=== PATIENT | female | born 1930 | race Caucasian/White ===

== ENCOUNTER 2017-05-27 09:40 | Inpatient (IN) ==
[2017-05-27] MEDS ORDERED: Ondansetron 4 MG/2 ML VIAL IVP PRN (12:32)
[2017-05-27] MEDS ORDERED: Naloxone 0.4 MG/ML INJ IVP PRN (12:32)
[2017-05-27] MEDS ORDERED: Acetaminophen 325 MG TABLET PO PRN (12:32)
[2017-05-27] MEDS ORDERED: Albuterol 2.5 MG/3 ML NEBULIZER IH PRN (12:38)
--- NOTE | 2017-05-27 13:39 | Internal Med History&Physical ---
<Buffy Sullivan - Last Filed: 05/27/17 16:12> Date of Encounter: 05/27/17 Time of Encounter: 13:38 Assessment and Plan (1) Pneumonia Current visit: Yes Status: Acute Patient has been experiencing increasing shortness of breath in the past 2 days as well as thick green sputum production. White count was 22 chest x-rays indicative of pneumonia. Patient was recently treated for pneumonia and has history of COPD. We will obtain CT of chest to evaluate for any possible mucus plugging 2 we will consult pulmonology. Did speak with Dr. Fowler who will see patient on consult 3 oxygen titrated to maintain SaO2 greater than 92% 4 continue with bronchodilators 5 steroids with taper 6 discussed CODE STATUS with patient who voices she would like to be full code. Consult with palliative 7 social studies teacher for discharge planning Qualifiers: Pneumonia type: due to unspecified organism Laterality: right Lung location: unspecified part of lung Qualified Code(s): J18.9 - Pneumonia, unspecified organism (2) Sepsis Current visit: Yes Status: Acute Patient presents to the ER with increased shortness of sputum production low- grade fever heart rate 120 white count was 22 source with pneumonia. Blood cultures were obtained patient was given fluid at the ER and was given bank and Zosyn. Which we will continue at renal dosage Continue with IV fluids gentle overnight We will obtain sputum culture Continue to monitor labs CBC Continuous cardiac monitoring Maintained in MAP greater than 60 Monitor intake output and daily weights Qualifiers: Sepsis type: sepsis due to unspecified organism Qualified Code(s): A41.9 - Sepsis, unspecified organism (3) Acute and chronic respiratory failure with hypoxia Current visit: Yes Status: Acute Patient's SPO2 was 91% on presentation VBG with PO2 23, she is oxygen dependent with COPD as well as pneumonia. We will obtain CT to check for any possible mucus plugging. We have consulted pulmonary and will continue with oxygen titrated to maintain SPO2 rated and 92%. Continue with bronchodilators and steroids (4) COPD (chronic obstructive pulmonary disease) Current visit: No Status: Chronic 1 continue with oxygen titrated to maintain a CVP greater than 92% Continue with steroids as well as bronchodilators Qualifiers: COPD type: emphysema Emphysema type: unspecified Qualified Code(s): J43.9 - Emphysema, unspecified (5) CKD (chronic kidney disease) stage 3, GFR 30-59 ml/min Current visit: Yes Status: Acute Creatinine is presently 1.4 on which she is around her baseline 1.5 1.6. We will continue to monitor creatinine Avoid nephrotoxins Monitor intake and output and daily weights (6) DVT prophylaxis Current visit: Yes Status: Acute Heparin subcutaneous Internal Medicine - H&P: HPI Chief complaint: SOB Admitted From: Hospital to Hospital Transfer Plans for Post Hospital Care: Home History of present illness: Ms. Cardoza is a 86 year old female past medical history of COPD oxygen dependent hypertension and back pain with history of compression fracture L3 L4 L5. Patient has been hospitalized over the past 5 weeks, for new compression fractures at the end of April, as well as pneumonia. Her daughter states that she has been home approximately a week from her last hospitalization and has been doing well up until the last 2 days where she has become increasingly short of breath. Denies any fevers chills nausea vomiting or increase in sputum production. She has been unable to perform her own ADLs due to shortness of breath and decreased mobility in her family has been providing her care. Approximately 6:30 this morning the patient called her daughter into her room she was acutely anxious and short of breath she was coughing up thick green sputum. Her daughter to check her SPO2 which was approximately 90%. EMS was called and the patient was found to be in respiratory distress. She was given IV Solu-Medrol as well as a DuoNeb and transported to the [facility] ER. According to records workup there did reveal an elevated white count as well as chest x-ray revealing increased opacity in the right mid lung concerning for a small to moderate pneumonia. Blood cultures were obtained patient was given IV antibiotics. She was transferred to [facility] for further workup and evaluation and pulmonary services. Presently patient is not in any respiratory distress denies any chest pain and she is hemodynamically stable at this time. I did review this case with Dr. Berman who agrees with plan a Past Med Surg Social Fam HX - Past Medical History Medical history: COPD, hypertension, other Psychiatric history: no psych history - Past Surgical History Surgical History: no surgical history - Social History Smoking Status: Never smoker Smokeless Tobacco Status: No Alcohol use: none Drug use: none - Family History Mother Living Status: Hx Family Neuromuscular Disorders: Yes Father Living Status: Hx Family Endocrine Disorder: Yes Internal Medicine - H&P: Meds Aspirin 81 mg PO DAILY 07/21/15 [History] Gabapentin [Neurontin] 100 mg PO TID 07/21/15 [History] Omeprazole [PriLOSEC] 20 mg PO HS 03/16/16 [History] hydroCHLOROthiazide [Hydrochlorothiazide] 12.5 mg PO Q48H 03/22/16 [History] 3 Allergy/AdvReac Type Severity Reaction Status Date / Time cephalexin [From Keflex] Allergy Flushing Verified 03/16/16 21:08 moxifloxacin Allergy Flushing Verified 03/16/16 21:08 All Systems PM: A 10-system review of systems was performed and is negative for pertinent findings except as documented above in the HPI. - Constitutional Constitutional: anorexia, fatigue, weakness, weight loss - EENT Eyes: no change in vision, no discharge, no pain, no photophobia Nose, mouth and throat: no dysphagia, no nasal discharge, no neck pain, no sore throat - Cardiovascular Cardiovascular ROS IM: dyspnea, dyspnea on exertion - Respiratory Respiratory: dyspnea, dyspnea on exertion, excessive phlegm production, change in phlegm color - Gastrointestinal Gastrointestinal: no abdominal pain, no diarrhea, no hematemesis, no hematochezia, no melena, no nausea, no vomiting - Genitourinary Genitourinary: no change in urinary stream, no dysuria, no flank pain, no hematuria - Musculoskeletal Musculoskeletal ROS IM: no numbness, no tingling - Integumentary Integumentary IM: no rash, no unusual bruising - Neurological Neurological ROS: no confusion, no convulsions, no focal weakness, no numbness, no tingling, no tremor(s) - Hematologic/Lymphatic Hematologic/Lymphatic: no easy bruising - Constitutional Vitals: Temp Pulse Resp BP Pulse Ox 98.7 F 101 18 114/62 96 05/27/17 11:43 05/27/17 11:43 05/27/17 11:43 05/27/17 11:43 05/27/17 11:43 General appearance: Present: cachectic, A&O X 3 - Head Head exam: Present: atraumatic, normocephalic - Eye Eye exam: Present: PERRL, conjuntiva pink, sclera anicteric Pupils: Present: PERRL - Neck Neck exam general surgery: Present: supple, trachea midline. Absent: lymphadenopathy - Respiratory Respiratory exam: Present: rhonchi. Absent: accessory muscle use, rales, wheezes - Cardiovascular Cardiovascular exam: Present: RRR, +S1, +S2. Absent: diastolic murmur, gallop, rubs, systolic murmur - GI/Abdominal GI/Abdominal exam: Present: normal bowel sounds, soft, no peritoneal signs. Absent: distended, tenderness - Extremities Exam Extremities exam: Present: warm, radial pulses palpable and symmetrical. Absent : calf tenderness, cyanotic, pedal edema - Neurological Exam Neurological exam: Present: CN II-XII intact, oriented X3, no focal deficits. Absent: pronater drift, facial droop, speech deficit - Skin Skin exam: Present: dry, intact Internal Med - H&P Results - Labs Labs: CBC day BC 12.8 hemoglobin 10.3 hematocrit 34.6 platelets 520 VBG pH 7.34 PCO2 65 PO2 20 bicarbonate 37 lactate 1.4 Chemistry sodium 145 potassium 5.6 chloride 105 bicarbonate 31 BUN 41.41 glucose 109 BNP 163 - Diagnostic Studies Chest x-ray Additional comments: XR/XR chest 1V portable IMPRESSION: Patchy increased opacity in the right mid lung worrisome for small to moderate pneumonia superimposed on pulmonary fibrotic changes. Minimal to slight pulmonary vascular congestion. Moderate to severe emphysematous changes. <Devon Berman - Last Filed: 05/27/17 21:03> Date of Encounter: 05/27/17 Internal Medicine - H&P: HPI History of present illness: Ms. Cardoza is a 86 year old female All Systems PM: A 10-system review of systems was performed and is negative for pertinent findings except as documented above in the HPI. - Constitutional Vitals: Temp Pulse Resp BP Pulse Ox 98.3 F 120 22 151/71 94 05/27/17 20:20 05/27/17 20:20 05/27/17 20:32 05/27/17 20:20 05/27/17 20:32 Internal Med - H&P Results - Impressions ITS Impressions Chest CT 05/27/17 13:28 IMPRESSION: 1. Findings are most suggestive of multifocal pneumonia most significant in the left lower lobe. There are multifocal areas of infectious bronchiolitis as well. 2. Chronic atelectasis and bronchiectasis within the medial right middle lobe likely related to chronic infection or inflammation. 3. Several new subcentimeter nodular opacities throughout the lungs bilaterally, which are nonspecific but are felt to be related to infection. Recommend correlation with any history of malignancy. Recommend a short-term follow-up to ensure resolution. 4. Slight interval increase in size of a 3.3 cm left thyroid nodule. Consider further evaluation with ultrasound once acute issues have resolved. D/ / 05/27/2017 16:01:13 Fariba Grimaldo MD / earnold Interpreting Provider: Fariba Grimaldo MD - Attending Attestation I independently obtained history and examined this patient and my medical decision-making was reviewed with the nurse practitioner. I agree with the documented findings, disposition and treatment plan as described. My findings are summarized below: Patient is a frail elderly lady in no acute distress,. Heart is regular. Lung exam revealed bilateral coarse breath sounds with Rales and rhonchi. Plan: Blood broad spectrum IV antibiotics for healthcare associated pneumonia. Inhaled bronchodilators. Follow-up blood cultures. Obtain sputum culture. Devon Berman MD
[2017-05-27] MEDS ORDERED: Vancomycin 500 MG in D5% in Water (Mini-Bag+) 100 ML IVPB ONE (14:24)
--- NOTE | 2017-05-27 15:15 | Palliative - Consult Note ---
Date of Encounter: 05/27/17 Time of Encounter: 13:25 - Assessment and Plan (1) Goals of care, counseling/discussion Current Visit: Yes Status: Acute Assessment and plan: Discussion with patient she wishes to be a full code at this time. She and her family are discussing her options. reGuarding goals of care Fatmata is trying to provide [id number] care. They have a digital worked out, they also have some paid caregivers. Goal is to get well enough to go home. (2) Constipation by delayed colonic transit Current Visit: Yes Status: Acute Assessment and plan: Place patient on a regimen continue watch. (3) Community acquired pneumonia Current Visit: No Status: Acute Assessment and plan: Being managed by hospitalist team, plan per hospitalist team Qualifiers: Laterality: unspecified laterality Qualified Code(s): J18.9 - Pneumonia, unspecified organism (4) COPD (chronic obstructive pulmonary disease) Current Visit: No Status: Acute Assessment and plan: Being managed by hospitalist team, plan per hospitalist team Qualifiers: COPD type: chronic bronchitis Chronic bronchitis type: simple Qualified Code(s): J41.0 - Simple chronic bronchitis (5) Back pain Current Visit: No Status: Acute Assessment and plan: Patient's having no difficulty with pain at this time would recommend restarting patient's gabapentin be up to the primary care team. Qualifiers: Back pain location: low back pain Qualified Code(s): M54.40 - Lumbago with sciatica, unspecified side Palliative-CN HPI - Data of Consult Patient: new to practice Requesting Physician: Emily Turner MD Primary Care Provider: Kristy Snow - Consult Narrative Palliative Care/Comfort Measures: Palliative care History of present illness: Ms. Cardoza is a 86 year old female Patient was recently hospitalized at [facility] for a lumbar compression fracture and her spotting back pain he was released from the hospital and sent home. Last several days she has developed cough or shortness of breath octave of a very dark green sputum. Become more winded than usual. Actually became quite anxious. He requested rail transit operator be called and she was brought into the hospital here is treated with IV Solu-Medrol and given nebs and doing much better at this time. He continues to have trouble pain in her back from the compression fracture, however at this time she did not having any chest pain at all. Denies any fever shakes or chills but she does admit to having sputum with the cough. He has been hospitalized frequently in the past for pneumonia. He was treated at the [place] emergency department and transferred here for further treatment. [facility] care's consult regarding patient's CODE STATUS given her frail overall condition and the fact that she wished to be a full code. CC: Emily Turner MD Cough, shortness of breath Past Med Surg Social Fam HX - Past Medical History Medical history: COPD, hypertension, other Psychiatric history: no psych history - Past Surgical History Surgical History: no surgical history - Social History Smoking Status: Never smoker Smokeless Tobacco Status: No Alcohol use: none Drug use: none - Family History Mother Living Status: Hx Family Neuromuscular Disorders: Yes Father Living Status: Hx Family Endocrine Disorder: Yes Medications and Allergies Aspirin 81 mg PO DAILY 07/21/15 [History] Gabapentin [Neurontin] 100 mg PO TID 07/21/15 [History] Omeprazole [PriLOSEC] 20 mg PO HS 03/16/16 [History] hydroCHLOROthiazide [Hydrochlorothiazide] 12.5 mg PO Q48H 03/22/16 [History] 3 Allergy/AdvReac Type Severity Reaction Status Date / Time cephalexin [From Keflex] Allergy Flushing Verified 03/16/16 21:08 moxifloxacin Allergy Flushing Verified 03/16/16 21:08 - Constitutional Constitutional ROS PAL: decreased appetite, fatigue, lethargy, no chills - EENT Eyes: no discharge, no pain Ears: no ear discharge, no ear pain Ears, nose, mouth, throat: no dysphagia, no epistaxis, no mouth pain, no nasal congestion - Cardiovascular Cardiovascular ROS: no chest pain, no chest pain at rest - Respiratory Respiratory: cough, dyspnea, dyspnea on exertion, change in phlegm color - Gastrointestinal Gastrointestinal: constipation, no diarrhea, no nausea, no vomiting - Genitourinary Palliative ROS female: no urinary frequency, no urinary hesitancy, no urinary incontinence - Musculoskeletal Musculoskeletal ROS IM: back pain, muscle weakness - Integumentary ROS Integumentary: no skin ulcer, no sores - Neurological Neurological ROS: no disequilibrium, no dizziness, no focal weakness - Psychiatric Psychiatric general PM: change in appetite, no confusion, no homicidal ideation , no hopelessness, no suicidal ideation - Endocrine Endocrine IM: other Palliative Care-Exam - Constitutional Vitals: Temp Pulse Resp BP Pulse Ox 98.7 F 101 18 114/62 96 05/27/17 11:43 05/27/17 11:43 05/27/17 11:43 05/27/17 11:43 05/27/17 11:43 General appearance: Present: no acute distress, thin - Head Head Exam: Present: atraumatic, normal inspection - Eye Eye exam: Present: EOMI, normal appearance - Neck Neck exam: Present: normal inspection - Respiratory Respiratory exam: Present: decreased breath sounds - Cardiovascular Cardiovascular exam: Present: RRR - GI/Abdominal Exam GI/Abdominal exam: Present: normal bowel sounds, soft. Absent: tenderness - Extremities Exam Extremities exam: Present: normal inspection. Absent: pedal edema, tenderness - Neurological Exam Neurological exam: Present: alert, oriented X3 - Skin Skin exam: Present: dry, warm Consult Discharge Plan - Plan Referrals: Kristy Snow MD [Primary Care Provider] - Palliative Quality Palliative Quality: Screen for Code Status: Yes, Screen for Goals of Care: Yes, Screen for Pain: Yes, If Pain Regimen Started, Initiate Bowel Regimen: Yes, Screen for Nausea/Vomitting: Yes Code Status: 05/27/17 12:32 Resuscitation Status: Active [RES] Routine Comment: Resuscitation Status: Full Code
[2017-05-27] MEDS ORDERED: Piperacillin/Tazobactam 2.25 GM in D5% in Water (Mini-Bag+) 100 ML IVPB SCH (16:00)
[2017-05-27] MEDS: Ipratropium/Albuterol Neb 3 ML IH SCH ×2 (16:08→20:28)
[2017-05-27] MEDS: Piperacillin/Tazobactam 3.375 GM in D5% in Water (Mini-Bag+) 100 ML IVPB SCH (16:08)
[2017-05-27] MEDS: MethylPREDNISolone 40 MG/ML VIAL IVP SCH ×2 (16:09→23:51)
--- NOTE | 2017-05-27 17:10 | Pulmonology Consult Note ---
Date of Encounter: 05/27/17 Time of Encounter: 16:40 Assessment and Plan (1) Pneumonia Current Visit: No Status: Acute I have reviewed patient's CAT scan and there is evidence of pneumonia and I have explained to the family that the fact with her advanced lung disease and his pneumonia Prognosis is poor and completely agree with palliative care consultation. Patient has been treated appropriately to wait for sputum culture and if no diagnostic bacteria, then consider bronchoscopy, however patient is high risk for complications and family understand that. Qualifiers: Pneumonia type: due to unspecified organism Laterality: right Lung location: unspecified part of lung Qualified Code(s): J18.9 - Pneumonia, unspecified organism (2) Acute exacerbation of chronic obstructive airways disease Current Visit: No Status: Acute Patient is on bronchodilators and systemic steroid which is appropriate and I will add Symbicort to her treatment. (3) Acute and chronic respiratory failure with hypoxia Current Visit: No Status: Acute Patient is on home oxygen and to keep SPO2 around 90%. (4) Sepsis Current Visit: No Status: Acute Patient with recurrent pneumonia which is the source of sepsis and she is being treated appropriately Qualifiers: Sepsis type: sepsis due to unspecified organism Qualified Code(s): A41.9 - Sepsis, unspecified organism History of Present Illness Consult date: 05/27/17 Requesting physician: Buffy Sullivan Reason for consult: COPD, pneumonia Chief complaint: Shortness of breath History of present illness: This is a very pleasant 86-year-old female with very advanced lung disease stage IV based on last pulmonary function test she had. And patient is not on any inhalers but she use long-term oxygen therapy according to the family. This history taken from the patient and also from the daughter at the bedside. Patient has been having recurrent pneumonia and she is being treated for that. She has been having weight loss as well as weakness with productive cough and wheezing and worsening shortness of breath. Patient has green thick sputum and she was treated with systemic steroid as well as bronchodilators. She was transferred from [facility] emergency room. Patient has remote history of smoking. Past Med Surg Social Fam HX - Past Medical History Medical history: COPD, hypertension, other Psychiatric history: no psych history - Past Surgical History Surgical History: no surgical history - Social History Smoking Status: Never smoker Smokeless Tobacco Status: No Alcohol use: none Drug use: none - Family History Mother Living Status: Hx Family Neuromuscular Disorders: Yes Father Living Status: Hx Family Endocrine Disorder: Yes Medications and Allergies Aspirin 81 mg PO DAILY 07/21/15 [History] Gabapentin [Neurontin] 100 mg PO TID 07/21/15 [History] Omeprazole [PriLOSEC] 20 mg PO HS 03/16/16 [History] hydroCHLOROthiazide [Hydrochlorothiazide] 12.5 mg PO Q48H 03/22/16 [History] 3 Allergy/AdvReac Type Severity Reaction Status Date / Time cephalexin [From Keflex] Allergy Flushing Verified 03/16/16 21:08 moxifloxacin Allergy Flushing Verified 03/16/16 21:08 All Systems: A 10-system review of systems was performed and is negative for pertinent findings except as documented above in the HPI. Physical Examination Vital Signs: Vital Signs, Last 4 Hours Resp Pulse Ox 05/27/17 16:08 28 93 General appearance: appears uncomfortable Eyes: nonicteric ENT: oropharynx dry Mallampati (class): 1 Neck: supple, no lymphadenopathy Effort: mildly labored Inspection: hyperextended Auscultation: bilateral: diminished breath sounds, rhonchi Percussion: bilateral: not dull Cardiovascular: regular rate and rhythm Gastrointestinal: normoactive bowel sounds Extremities: no edema normal mental status, non-focal exam mood appropriate Results - Microbiology Findings Microbiology Findings: Microbiology, Last 48 Hours 05/27/17 14:15 Sputum Culture - Preliminary Sputum - Diagnostic Findings CT scan - chest: report reviewed, image reviewed - Clinical Findings Intake & Output: Intake & Output 05/27/17 05/27/17 05/27/17 07:59 15:59 23:59 Intake Total 0 / 0 Balance 0 / 0 Weight 38 kg Consult Discharge Plan - Plan Referrals: Kristy Snow MD [Primary Care Provider] -
[2017-05-27] MEDS: *HR* Heparin 5,000 UNIT/ML VIAL SQ SCH (19:00)
[2017-05-27] MEDS: Sennosides/Docusate Sodium TABLET PO SCH (19:56)
[2017-05-27] MEDS: Gabapentin 100 MG CAPSULE PO SCH (19:56)
[2017-05-27] MEDS: Budesonide/Formoterol 160/4.5 MDI IH SCH (20:29)
[2017-05-27] MEDS ORDERED: *HR* Morphine 2 MG/ML SYRINGE IVP ONE (22:20)
[2017-05-28] MEDS: Piperacillin/Tazobactam 3.375 GM in D5% in Water (Mini-Bag+) 100 ML IVPB SCH ×2 (03:27→15:37)
[2017-05-28] MEDS: Ipratropium/Albuterol Neb 3 ML IH SCH ×4 (04:26→22:14)
[2017-05-28] MEDS: *HR* Heparin 5,000 UNIT/ML VIAL SQ SCH ×2 (05:01→19:41)
[2017-05-28 05:49] LABS: Basophils % 0.1 %; Hematocrit 27.5 % (35.3-44.9); Hemoglobin 8.1 g/dL (11.5-15.4); Immature Granulocytes % 0.6 % (0-4); Lymphocytes # 0.2 K/mcL (0.6-4.6); Lymphocytes % 1.8 %; Mean Corpuscular HGB Conc 29.5 g/dL (31.6-35.5); Mean Corpuscular Hemoglobin 27.8 pg (28.0-33.3); Mean Corpuscular Volume 94.5 fL (83.0-100.0); Mean Platelet Volume 10.1 fL (9.4-12.4); Monocytes # 0.1 K/mcL (0.0-1.3); Monocytes % 0.7 %; Neutrophils # 11.6 K/mcL (1.6-8.9); Platelet Count 583 K/mcL (140-400); Red Blood Count 2.91 M/mcL (3.82-4.97); Red Cell Distribution Width 14.2 % (11.5-14.5); Segmented Neutrophils % 96.8 %
[2017-05-28 06:19] LABS: Calcium 9.1 mg/dL (8.6-10.8); Magnesium 1.6 mg/dL (1.6-2.6); Potassium 5.3 mEq/L (3.5-4.5)
--- NOTE | 2017-05-28 07:52 | Palliative Progress Note ---
Date of Encounter: 05/28/17 Time of Encounter: 07:15 - Assessment and plan (1) Goals of care, counseling/discussion Current Visit: No Status: Acute Assessment and plan: She continues to wish to be full code. We will continue this discussion. She will care for the patient return home. Family is working together to try to range for [id number] care. She wishes to get a medical power of commercial attorney done. This will be accomplished on Tuesday with social work. (2) Constipation by delayed colonic transit Current Visit: No Status: Acute Assessment and plan: Has now had a bowel movement continue to watch bowel regimen (3) Community acquired pneumonia Current Visit: No Status: Acute Assessment and plan: Continue antibiotics, pulmonary also on board. Qualifiers: Laterality: unspecified laterality Qualified Code(s): J18.9 - Pneumonia, unspecified organism (4) COPD (chronic obstructive pulmonary disease) Current Visit: No Status: Acute Assessment and plan: Plan per pulmonary and hospitalist team Qualifiers: COPD type: chronic bronchitis Chronic bronchitis type: simple Qualified Code(s): J41.0 - Simple chronic bronchitis (5) Back pain Current Visit: No Status: Acute Assessment and plan: The patient is not currently complaining of back pain, however I did note the patient did get a small dose of morphine last night and I agree with this. I recommend making the small dose of morphine available a when necessary basis. Qualifiers: Back pain location: low back pain Qualified Code(s): M54.40 - Lumbago with sciatica, unspecified side - Time Spent With Patient Total time spent is greater than 50% in coordination of care (as documented) at patient's floor/unit and/or counseling patient: - Subjective Interval history: Noted some anxiety last night. This morning patient is awake and alert eating go to the bathroom and has no complaints of. He had no questions regarding yesterday and wishes to leave everything as is. - Constitutional Vitals: Abnormal lab results WBC 12.0 K/mcL (4.3-11.1) H 05/28/17 05:27 RBC 2.91 M/mcL (3.82-4.97) L 05/28/17 05:27 Hgb 8.1 g/dL (11.5-15.4) L D 05/28/17 05:27 Hct 27.5 % (35.3-44.9) L 05/28/17 05:27 MCH 27.8 pg (28.0-33.3) L 05/28/17 05:27 MCHC 29.5 g/dL (31.6-35.5) L 05/28/17 05:27 Plt Count 583 K/mcL (140-400) H 05/28/17 05:27 Neutrophils # 11.6 K/mcL (1.6-8.9) H 05/28/17 05:27 Lymphocytes # 0.2 K/mcL (0.6-4.6) L 05/28/17 05:27 Potassium 5.3 mEq/L (3.5-4.5) H 05/28/17 05:27 Carbon Dioxide 32 mEq/L (19-29) H 05/28/17 05:27 BUN 42 mg/dL (7-20) H 05/28/17 05:27 Creatinine 1.72 mg/dL (0.57-1.11) H 05/28/17 05:27 Est GFR ( Amer) 34 (> 60) L 05/28/17 05:27 Est GFR (Non-Af Amer) 28 (> 60) L 05/28/17 05:27 Glucose 161 mg/dL (70-99) H 05/28/17 05:27 Calculated Osmolality 308 (280-300) H 05/28/17 05:27 General appearance: Present: no acute distress - Head Head exam: Present: atraumatic, normal inspection - ENT ENT exam: Present: mucous membranes moist - Respiratory Respiratory exam: Present: decreased breath sounds - Cardiovascular Cardiovascular exam: Present: RRR, tachycardia - GI/Abdominal GI/Abdominal exam: Present: normal bowel sounds, soft. Absent: tenderness - Extremities Exam Extremities exam: Present: normal inspection. Absent: pedal edema, tenderness - Neurological Exam Neurological exam: Present: alert, oriented X3 - Psychiatric Psychiatric exam: Absent: agitated, anxious (Did have anxiety earlier) - Skin Skin exam: Present: dry, warm Palliative Quality Palliative Quality: Screen for Code Status: Yes, Screen for Goals of Care: Yes, Screen for Pain: Yes, If Pain Regimen Started, Initiate Bowel Regimen: Yes, Screen for Nausea/Vomitting: Yes Code Status: 05/27/17 12:32 Resuscitation Status: Active [RES] Routine Comment: Resuscitation Status: Full Code - Labs CBC & Chem 7: 05/28/17 05:27 05/28/17 05:27 Labs: Laboratory Results - last 24 hr 05/28/17 05/28/17 05:27 05:27 WBC 12.0 H RBC 2.91 L Hgb 8.1 L D Hct 27.5 L MCV 94.5 MCH 27.8 L MCHC 29.5 L RDW 14.2 Plt Count 583 H MPV 10.1 Immature Gran % 0.6 Seg Neutrophils % 96.8 Lymphocytes % 1.8 Monocytes % 0.7 Eosinophils % 0.0 Basophils % 0.1 Neutrophils # 11.6 H Lymphocytes # 0.2 L Monocytes # 0.1 Eosinophils # 0.0 Basophils # 0.0 Sodium 142 Potassium 5.3 H Chloride 104 Carbon Dioxide 32 H BUN 42 H Creatinine 1.72 H Est GFR ( Amer) 34 L Est GFR (Non-Af Amer) 28 L BUN/Creatinine Ratio 24 Glucose 161 H Calculated Osmolality 308 H Calcium 9.1 Magnesium 1.6 - Impressions Impressions Chest CT 05/27/17 13:28 IMPRESSION: 1. Findings are most suggestive of multifocal pneumonia most significant in the left lower lobe. There are multifocal areas of infectious bronchiolitis as well. 2. Chronic atelectasis and bronchiectasis within the medial right middle lobe likely related to chronic infection or inflammation. 3. Several new subcentimeter nodular opacities throughout the lungs bilaterally, which are nonspecific but are felt to be related to infection. Recommend correlation with any history of malignancy. Recommend a short-term follow-up to ensure resolution. 4. Slight interval increase in size of a 3.3 cm left thyroid nodule. Consider further evaluation with ultrasound once acute issues have resolved. D/ / 05/27/2017 16:01:13 Fariba Grimaldo MD / [facility] Interpreting Provider: Fariba Grimaldo MD Consult Discharge Plan - Plan Referrals: Kristy Snow MD [Primary Care Provider] -
[2017-05-28] MEDS: Aspirin 81 MG TAB.CHEW PO SCH (08:00)
[2017-05-28] MEDS: Sennosides/Docusate Sodium TABLET PO SCH ×2 (08:00→20:04)
[2017-05-28] MEDS: Gabapentin 100 MG CAPSULE PO SCH ×3 (08:00→20:04)
[2017-05-28] MEDS: MethylPREDNISolone 40 MG/ML VIAL IVP SCH (08:00)
[2017-05-28] MEDS ORDERED: Vancomycin 1 EACH in D5% in Water 250 ML IVPB SCH (09:00)
[2017-05-28] MEDS ORDERED: Magnesium Sulfate 2 GM in D5% in Water 100 ML IVPB ONE (09:11)
--- NOTE | 2017-05-28 09:15 | Internal Med Progress Note ---
<Brianne Salter - Last Filed: 05/28/17 14:55> Date of Encounter: 05/28/17 Time of Encounter: 09:12 - Assessment and plan (1) Acute exacerbation of chronic obstructive pulmonary disease (COPD) Current Visit: Yes Status: Acute Assessment and plan: acute eacerbation of COPD likely secondary to pneumonia. Chest CT showed multifocal pneumonia most significant in the left lower lobe, infectious bronchiolitis, chronic atalectasis. patient wears 2L oxygen all the time. she lives at home with her granddaughter. sputum culture negative. community acquired pneumonia. Plan: patient still tachycardic-continue gentle IV hydration. vanc/zosyn, renally dosed. blood cultures drawn at [place], pending results. scheduled duonebs. IV methylprednisolone BID oxygen titrated as needed. appreciate pulmonology recs. if no diagnostic bacteria, plan for bronch per pulm recs. (2) Pneumonia Current Visit: No Status: Acute Assessment and plan: plan as above Qualifiers: Pneumonia type: due to unspecified organism Laterality: right Lung location: unspecified part of lung Qualified Code(s): J18.9 - Pneumonia, unspecified organism (3) COPD (chronic obstructive pulmonary disease) Current Visit: No Status: Chronic Assessment and plan: plan as above. Qualifiers: COPD type: emphysema Emphysema type: unspecified Qualified Code(s): J43.9 - Emphysema, unspecified (4) Acute and chronic respiratory failure with hypoxia Current Visit: No Status: Acute Assessment and plan: likely secondary to COPD exacerbation/PNA. plan as above. (5) Sepsis Current Visit: No Status: Acute Assessment and plan: patient came in with shortness of breath, low grade fever, tachycardia, WBC 22 likely source PNA plan as above Qualifiers: Sepsis type: sepsis due to unspecified organism Qualified Code(s): A41.9 - Sepsis, unspecified organism (6) CKD (chronic kidney disease) stage 3, GFR 30-59 ml/min Current Visit: No Status: Acute Assessment and plan: history of CKD. continue to monitor Cr renally dose all meds avoid nephrotoxins. (7) Anemia Current Visit: No Status: Chronic Assessment and plan: Hg today 8.1, baseline around 11. possible etiologies include: anemia of chronic disease, acute blood loss, possible iron deficiency. iron profile reviewed from 04/24/17: iron 23, ferritin 484, transferrin 171 of note, patient does have history of GI bleed. Plan: will monitor H/H, stop Sq heparin if patient continues to drop. will check B12, folate levels with tomorrow's labs. stool guiac pending. Qualifiers: Anemia type: iron deficiency Iron deficiency anemia type: unspecified iron deficiency Qualified Code(s): D50.9 - Iron deficiency anemia, unspecified (8) Goals of care, counseling/discussion Current Visit: No Status: Acute Assessment and plan: consult made to palliative in regards to patient's poor prognosis. she wishes to stay full code at this time. patient's family is arranging for around the clock care at home. (9) DVT prophylaxis Current Visit: No Status: Acute Assessment and plan: heparin SQ - Subjective Interval history: 86F evaluated at bedside. patient was sitting up in bed. she is very pleasant. she denies nausea, vomiting, diarrhea, fever, chills, chest pain, and shortness of breath. she denies any further issues today. - Constitutional Vitals: Temp Pulse Resp BP Pulse Ox 98.0 F 112 19 165/81 94 05/28/17 07:26 05/28/17 07:26 05/28/17 07:26 05/28/17 07:26 05/28/17 07:26 General appearance: Present: cachectic, A&O X 3, pleasant, no acute distress Exam: very cachectic - Head Head exam: Present: atraumatic, normocephalic - Neck Neck exam general surgery: Present: supple, trachea midline - Respiratory Respiratory exam: Present: rales, rhonchi - Cardiovascular Cardiovascular exam: Present: tachycardia - GI/Abdominal GI/Abdominal exam: Present: distended, hypoactive bowel sounds, soft. Absent: tenderness - Extremities Exam Extremities exam: Absent: cyanotic, pedal edema - Psychiatric Psychiatric exam: Present: normal affect, normal mood - Skin Skin exam: Present: intact Internal Medicine: Result - Labs CBC & Chem 7: 05/28/17 05:27 05/28/17 05:27 Labs: Short CBC 05/28/17 Range/Units 05:27 WBC 12.0 H (4.3-11.1) K/mcL Hgb 8.1 L D (11.5-15.4) g/dL Hct 27.5 L (35.3-44.9) % Plt Count 583 H (140-400) K/mcL Neutrophils # 11.6 H (1.6-8.9) K/mcL BMP 05/28/17 05:27 Sodium 142 Potassium 5.3 H Chloride 104 Carbon Dioxide 32 H BUN 42 H Creatinine 1.72 H Glucose 161 H Calcium 9.1 - Impressions Impressions Chest CT 05/27/17 13:28 IMPRESSION: 1. Findings are most suggestive of multifocal pneumonia most significant in the left lower lobe. There are multifocal areas of infectious bronchiolitis as well. 2. Chronic atelectasis and bronchiectasis within the medial right middle lobe likely related to chronic infection or inflammation. 3. Several new subcentimeter nodular opacities throughout the lungs bilaterally, which are nonspecific but are felt to be related to infection. Recommend correlation with any history of malignancy. Recommend a short-term follow-up to ensure resolution. 4. Slight interval increase in size of a 3.3 cm left thyroid nodule. Consider further evaluation with ultrasound once acute issues have resolved. D/ / 05/27/2017 16:01:13 Fariba Grimaldo MD / [facility] Interpreting Provider: Fariba Grimaldo MD Consult Discharge Plan - Plan Referrals: Kristy Snow MD [Primary Care Provider] - <JohnnyBaltaanoop - Last Filed: 05/28/17 17:37> Date of Encounter: 05/28/17 - Constitutional Vitals: Temp Pulse Resp BP Pulse Ox 98.1 F 124 16 124/65 90 05/28/17 15:39 05/28/17 15:39 05/28/17 16:47 05/28/17 15:39 05/28/17 16:47 Internal Medicine: Result - Labs CBC & Chem 7: 05/28/17 05:27 05/28/17 05:27 Labs: Short CBC 05/28/17 Range/Units 05:27 WBC 12.0 H (4.3-11.1) K/mcL Hgb 8.1 L D (11.5-15.4) g/dL Hct 27.5 L (35.3-44.9) % Plt Count 583 H (140-400) K/mcL Neutrophils # 11.6 H (1.6-8.9) K/mcL BMP 05/28/17 05:27 Sodium 142 Potassium 5.3 H Chloride 104 Carbon Dioxide 32 H BUN 42 H Creatinine 1.72 H Glucose 161 H Calcium 9.1 - Attending Attestation I have seen and examined the patient independently. I have discussed with resident Dr. Salter regarding the management plan. Agree with the documentation. Patient feels less shortness of breath now. No wheezing. CT chest shows multifocal pneumonia. We will continue antibiotic and supportive treatment. Pulmonology consult appreciated.
--- NOTE | 2017-05-28 09:18 | Pulmonology Progress Note ---
Date of Encounter: 05/28/17 Time of Encounter: 07:45 Assessment and Plan (1) Pneumonia Current Visit: No Status: Acute Continue current antibiotics. De-escalation of antibiotics if cultures remain negative the next 24 hours. Qualifiers: Qualified Code(s): J18.9 - Pneumonia, unspecified organism (2) Acute exacerbation of chronic obstructive airways disease Current Visit: No Status: Acute There is slight improvement on current treatment, patient has advanced lung disease with poor prognosis. (3) Acute and chronic respiratory failure with hypoxia Current Visit: No Status: Acute Keep SPO2 around 90%. (4) Sepsis Current Visit: No Status: Acute Qualifiers: Qualified Code(s): A41.9 - Sepsis, unspecified organism Subjective Principal diagnosis: Shortness of breath Interval history: Patient denies any complaint and she feels slightly better. Objective PUL Vital signs: Last Vital Signs Temp 98.0 F 05/28/17 07:26 Pulse 112 05/28/17 07:26 Resp 19 05/28/17 07:26 BP 165/81 05/28/17 07:26 Pulse Ox 94 05/28/17 07:26 General appearance: no acute distress Eyes: nonicteric ENT: oropharynx moist Neck: supple, no lymphadenopathy Effort: mildly labored Auscultation: right: rhonchi, bilateral: diminished breath sounds Percussion: bilateral: not dull Cardiovascular: regular rate and rhythm Gastrointestinal: normoactive bowel sounds Extremities: no cyanosis non-focal exam anxious Results - Laboratory Findings CBC and BMP: 05/28/17 05:27 05/28/17 05:27 Abnormal lab findings: Abnormal lab results WBC 12.0 K/mcL (4.3-11.1) H 05/28/17 05:27 RBC 2.91 M/mcL (3.82-4.97) L 05/28/17 05:27 Hgb 8.1 g/dL (11.5-15.4) L D 05/28/17 05:27 Hct 27.5 % (35.3-44.9) L 05/28/17 05:27 MCH 27.8 pg (28.0-33.3) L 05/28/17 05:27 MCHC 29.5 g/dL (31.6-35.5) L 05/28/17 05:27 Plt Count 583 K/mcL (140-400) H 05/28/17 05:27 Neutrophils # 11.6 K/mcL (1.6-8.9) H 05/28/17 05:27 Lymphocytes # 0.2 K/mcL (0.6-4.6) L 05/28/17 05:27 Potassium 5.3 mEq/L (3.5-4.5) H 05/28/17 05:27 Carbon Dioxide 32 mEq/L (19-29) H 05/28/17 05:27 BUN 42 mg/dL (7-20) H 05/28/17 05:27 Creatinine 1.72 mg/dL (0.57-1.11) H 05/28/17 05:27 Est GFR ( Amer) 34 (> 60) L 05/28/17 05:27 Est GFR (Non-Af Amer) 28 (> 60) L 05/28/17 05:27 Glucose 161 mg/dL (70-99) H 05/28/17 05:27 Calculated Osmolality 308 (280-300) H 05/28/17 05:27 - Microbiology Findings Microbiology Findings: Microbiology, Last 48 Hours 05/27/17 14:15 Sputum Culture - Preliminary Sputum - Clinical Findings Intake & Output: Intake & Output 05/27/17 05/28/17 05/28/17 23:59 07:59 15:59 Intake Total 100 / 100 Output Total 575 / 575 Balance -475 / -475 Weight 46.7 kg Consult Discharge Plan - Plan Referrals: Kristy Snow MD [Primary Care Provider] -
[2017-05-28] MEDS ORDERED: 0.9 % Sodium Chloride 500 ML IVC ONE (09:22)
[2017-05-28] MEDS ORDERED: 0.9 % Sodium Chloride 1,000 ML IVC SCH (09:30)
[2017-05-28] MEDS: Budesonide/Formoterol 160/4.5 MDI IH SCH ×2 (10:50→22:15)
[2017-05-28] MEDS ORDERED: *HR* Morphine 2 MG/ML SYRINGE IVP ONE (19:55)
[2017-05-28] MEDS ORDERED: MethylPREDNISolone 40 MG/ML VIAL IVP SCH (21:00)
[2017-05-28 21:16] LABS: Potassium 4.6 mEq/L (3.5-4.5)
[2017-05-29] MEDS ORDERED: Vancomycin 1,000 MG in D5% in Water 250 ML IVPB ONE
[2017-05-29 01:36] LABS: Basophils % 0.1 %; Hematocrit 27.5 % (35.3-44.9); Hemoglobin 8.1 g/dL (11.5-15.4); Immature Granulocytes % 0.5 % (0-4); Lymphocytes # 0.3 K/mcL (0.6-4.6); Lymphocytes % 1.6 %; Mean Corpuscular HGB Conc 29.5 g/dL (31.6-35.5); Mean Corpuscular Volume 95.2 fL (83.0-100.0); Mean Platelet Volume 10.2 fL (9.4-12.4); Monocytes # 0.9 K/mcL (0.0-1.3); Monocytes % 4.8 %; Neutrophils # 17.9 K/mcL (1.6-8.9); Platelet Count 627 K/mcL (140-400); Red Blood Count 2.89 M/mcL (3.82-4.97); Red Cell Distribution Width 14.4 % (11.5-14.5)
[2017-05-29 01:45] LABS: Potassium 4.2 mEq/L (3.5-4.5)
[2017-05-29 01:46] LABS: Calcium 8.8 mg/dL (8.6-10.8); Magnesium 2.4 mg/dL (1.6-2.6)
[2017-05-29] MEDS: Piperacillin/Tazobactam 3.375 GM in D5% in Water (Mini-Bag+) 100 ML IVPB SCH ×2 (03:51→15:05)
[2017-05-29] MEDS: Ipratropium/Albuterol Neb 3 ML IH SCH ×4 (04:50→21:08)
[2017-05-29] MEDS: *HR* Heparin 5,000 UNIT/ML VIAL SQ SCH ×2 (05:57→16:48)
[2017-05-29] MEDS: Sennosides/Docusate Sodium TABLET PO SCH ×2 (08:05→20:30)
[2017-05-29] MEDS: Aspirin 81 MG TAB.CHEW PO SCH (08:05)
[2017-05-29] MEDS: Gabapentin 100 MG CAPSULE PO SCH ×3 (08:05→20:09)
[2017-05-29] MEDS: Budesonide/Formoterol 160/4.5 MDI IH SCH ×2 (10:28→21:08)
[2017-05-29] MEDS: Lactobacillus 1 EACH CAP.SPRINK PO SCH (11:01)
--- NOTE | 2017-05-29 11:46 | Internal Med Progress Note ---
Date of Encounter: 05/29/17 Time of Encounter: 11:42 - Assessment and plan (1) Acute exacerbation of chronic obstructive pulmonary disease (COPD) Current Visit: Yes Status: Acute Assessment and plan: acute eacerbation of COPD likely secondary to pneumonia. Chest CT showed multifocal pneumonia most significant in the left lower lobe, infectious bronchiolitis, chronic atalectasis. patient wears 2L oxygen all the time. she lives at home with her granddaughter. sputum culture growing two gram negative rods. community acquired pneumonia. Plan: vanc/zosyn, renally dosed. blood cultures drawn at [facility], prelim negative. scheduled duonebs. discontinued IV steroid. oxygen titrated as needed. appreciate pulmonology recs. if no diagnostic bacteria, plan for bronch per pulm recs. will de-escalate based on cultures mucomyst to help with mucous secretions. (2) Pneumonia Current Visit: No Status: Acute Assessment and plan: plan as above Qualifiers: Pneumonia type: due to unspecified organism Laterality: right Lung location: unspecified part of lung Qualified Code(s): J18.9 - Pneumonia, unspecified organism (3) COPD (chronic obstructive pulmonary disease) Current Visit: No Status: Chronic Assessment and plan: plan as above. Qualifiers: COPD type: emphysema Emphysema type: unspecified Qualified Code(s): J43.9 - Emphysema, unspecified (4) Acute and chronic respiratory failure with hypoxia Current Visit: No Status: Acute Assessment and plan: likely secondary to COPD exacerbation/PNA. plan as above. (5) Sepsis Current Visit: No Status: Acute Assessment and plan: patient came in with shortness of breath, low grade fever, tachycardia, WBC 22 likely source PNA plan as above Qualifiers: Sepsis type: sepsis due to unspecified organism Qualified Code(s): A41.9 - Sepsis, unspecified organism (6) CKD (chronic kidney disease) stage 3, GFR 30-59 ml/min Current Visit: No Status: Acute Assessment and plan: history of CKD. continue to monitor Cr renally dose all meds avoid nephrotoxins. (7) Anemia Current Visit: No Status: Chronic Assessment and plan: Hg today 8.1, baseline around 11. possible etiologies include: anemia of chronic disease, acute blood loss, possible iron deficiency. iron profile reviewed from 04/24/17: iron 23, ferritin 484, transferrin 171 of note, patient does have history of GI bleed. stool occult blood positive. B12, folate WNL Plan: will monitor H/H, stop Sq heparin if patient continues to drop. will hold off on EGD at this time, as patient likely will not be able to tolerate it due to her respiratory status. Qualifiers: Anemia type: iron deficiency Iron deficiency anemia type: unspecified iron deficiency Qualified Code(s): D50.9 - Iron deficiency anemia, unspecified (8) Goals of care, counseling/discussion Current Visit: No Status: Acute Assessment and plan: consult made to palliative in regards to patient's poor prognosis. she wishes to stay full code at this time. patient's family is arranging for around the clock care at home. (9) DVT prophylaxis Current Visit: No Status: Acute Assessment and plan: heparin SQ - Subjective Interval history: 86F evaluated at bedside. patient was sitting up in bed. she is very pleasant. she denies nausea, vomiting, diarrhea, fever, chills, chest pain, and shortness of breath. she denies any further issues today. - Constitutional Vitals: Temp Pulse Resp BP Pulse Ox 98.1 F 120 18 150/76 93 05/29/17 11:39 05/29/17 11:39 05/29/17 11:39 05/29/17 11:39 05/29/17 11:39 General appearance: Present: cachectic, A&O X 3, pleasant, no acute distress - Head Head exam: Present: atraumatic, normocephalic - Neck Neck exam general surgery: Present: supple, trachea midline - Respiratory Additional comments: rales, rhonchi present. - Cardiovascular Cardiovascular exam: Present: tachycardia - GI/Abdominal GI/Abdominal exam: Present: normal bowel sounds, soft. Absent: distended, tenderness - Extremities Exam Extremities exam: Absent: cyanotic, pedal edema - Neurological Exam Neurological exam: Present: alert, oriented X3, no focal deficits - Psychiatric Psychiatric exam: Present: normal affect, normal mood Internal Medicine: Result - Labs CBC & Chem 7: 05/29/17 01:12 05/29/17 01:12 Labs: Short CBC 05/29/17 Range/Units 01:12 WBC 19.2 H D (4.3-11.1) K/mcL Hgb 8.1 L (11.5-15.4) g/dL Hct 27.5 L (35.3-44.9) % Plt Count 627 H (140-400) K/mcL Neutrophils # 17.9 H (1.6-8.9) K/mcL BMP 05/28/17 05/29/17 19:43 01:12 Sodium 142 145 Potassium 4.6 H 4.2 Chloride 104 106 Carbon Dioxide 30 H 28 BUN 43 H 43 H Creatinine 1.81 H 1.71 H Glucose 174 H 170 H Calcium 9.0 8.8 Consult Discharge Plan - Plan Referrals: Kristy Snow MD [Primary Care Provider] -
[2017-05-29] MEDS: Acetylcysteine 10% 2 ML INHSOL IH SCH ×2 (15:38→21:08)
[2017-05-29] MEDS: amLODIPine 5 MG TABLET PO SCH (16:48)
[2017-05-29] MEDS: Melatonin 3 MG TABLET PO PRN (20:49)
[2017-05-30 01:32] LABS: Basophils % 0.1 %; Hematocrit 27.7 % (35.3-44.9); Hemoglobin 8.2 g/dL (11.5-15.4); Immature Granulocytes % 0.8 % (0-4); Lymphocytes # 0.5 K/mcL (0.6-4.6); Lymphocytes % 2.8 %; Mean Corpuscular HGB Conc 29.6 g/dL (31.6-35.5); Mean Corpuscular Hemoglobin 28.2 pg (28.0-33.3); Mean Corpuscular Volume 95.2 fL (83.0-100.0); Mean Platelet Volume 10.3 fL (9.4-12.4); Monocytes # 1.4 K/mcL (0.0-1.3); Monocytes % 7.3 %; Neutrophils # 16.4 K/mcL (1.6-8.9); Platelet Count 642 K/mcL (140-400); Red Blood Count 2.91 M/mcL (3.82-4.97); Red Cell Distribution Width 14.5 % (11.5-14.5)
[2017-05-30] MEDS ORDERED: Vancomycin 750 MG in D5% in Water 250 ML IVPB ONE (03:30)
[2017-05-30] MEDS: Ipratropium/Albuterol Neb 3 ML IH SCH ×4 (03:52→22:23)
[2017-05-30] MEDS: Acetylcysteine 10% 2 ML INHSOL IH SCH ×4 (03:52→22:25)
[2017-05-30] MEDS: Piperacillin/Tazobactam 3.375 GM in D5% in Water (Mini-Bag+) 100 ML IVPB SCH ×2 (05:43→18:29)
[2017-05-30] MEDS: *HR* Heparin 5,000 UNIT/ML VIAL SQ SCH ×2 (05:49→18:34)
[2017-05-30] MEDS ORDERED: Aminoglycoside Consult 1 EACH MC ONE (07:39)
[2017-05-30] MEDS: Aspirin 81 MG TAB.CHEW PO SCH (08:32)
[2017-05-30] MEDS: Gabapentin 100 MG CAPSULE PO SCH ×3 (08:32→21:54)
[2017-05-30] MEDS: Lactobacillus 1 EACH CAP.SPRINK PO SCH (08:32)
[2017-05-30] MEDS: amLODIPine 5 MG TABLET PO SCH (08:32)
[2017-05-30] MEDS: Sennosides/Docusate Sodium TABLET PO SCH ×2 (08:33→21:55)
--- NOTE | 2017-05-30 10:51 | Event Note ---
Date of Encounter: 05/30/17 Time of Encounter: 10:45 Patient up in chair. Appears anxious. Denies any shortness of breath/pain, states she is doing better. Attempted to f/u on goals of care discussion, and pt became very upset. Stated, " I told that Dr. Love I did not want to discuss it then, and I do not want to discuss it now". I explained that we only wanted to abide and discuss her wishes, she asked that I quit talking about it. We did discuss with social work earlier this am, that it would be beneficial to meet with patient when family not present to discuss who she would want for power of employee benefits attorney. She is hoping to be discharged soon.
[2017-05-30] MEDS: Budesonide/Formoterol 160/4.5 MDI IH SCH ×2 (11:23→22:22)
--- NOTE | 2017-05-30 14:54 | Internal Med Progress Note ---
<Taniya Lucas - Last Filed: 05/30/17 15:50> Date of Encounter: 05/30/17 Time of Encounter: 14:45 - Assessment and plan (1) Acute exacerbation of chronic obstructive pulmonary disease (COPD) Current Visit: Yes Status: Acute Assessment and plan: Acute exacerbation of COPD likely secondary to pneumonia Chest CT showed multifocal pneumonia most significant in the left lower lobe, infectious bronchiolitis, chronic atalectasis Patient wears 2L oxygen all the time. She lives at home with her granddaughter community acquired pneumonia patient reports breathing improving, WBC improving -sputum culture growing two gram negative rods -zosyn, renally dosed -blood cultures drawn at [facility], prelim negative -scheduled duonebs -stop vancomycin -supplemental oxygen: 3L currently -appreciate pulmonology recs. if no diagnostic bacteria, plan for bronch per pulm recs -will de-escalate based on cultures and sensitivity -mucomyst to help with mucous secretions (2) Pneumonia Current Visit: No Status: Acute Assessment and plan: Plan above Qualifiers: Pneumonia type: due to unspecified organism Laterality: right Lung location: lower lobe of lung Qualified Code(s): J18.1 - Lobar pneumonia, unspecified organism (3) COPD (chronic obstructive pulmonary disease) Current Visit: No Status: Acute Assessment and plan: Plan as above Qualifiers: COPD type: chronic bronchitis Chronic bronchitis type: simple Qualified Code(s): J41.0 - Simple chronic bronchitis (4) Sepsis Current Visit: No Status: Acute Assessment and plan: patient came in with shortness of breath, low grade fever, tachycardia, WBC 22 likely source PNA plan as above Qualifiers: Sepsis type: sepsis due to unspecified organism Qualified Code(s): A41.9 - Sepsis, unspecified organism (5) Acute and chronic respiratory failure with hypoxia Current Visit: No Status: Acute Assessment and plan: likely secondary to COPD exacerbation/PNA plan as above (6) Anemia Current Visit: No Status: Chronic Assessment and plan: Hgb today 8.2, baseline around 11 possible etiologies include: anemia of chronic disease, acute blood loss, possible iron deficiency. iron profile reviewed from 04/24/17: iron 23, ferritin 484, transferrin 171 of note, patient does have history of GI bleed stool occult blood positive B12, folate WNL -will monitor H/H -stop Sq heparin if hemoglobin continues to drop -will hold off on EGD at this time, as patient likely will not be able to tolerate it due to her respiratory status Qualifiers: Anemia type: iron deficiency Iron deficiency anemia type: unspecified iron deficiency Qualified Code(s): D50.9 - Iron deficiency anemia, unspecified (7) CKD (chronic kidney disease) stage 3, GFR 30-59 ml/min Current Visit: No Status: Acute Assessment and plan: history of CKD continue to monitor creatinine renally dose all meds avoid nephrotoxins. (8) Goals of care, counseling/discussion Current Visit: No Status: Acute Assessment and plan: consult made to palliative in regards to patient's poor prognosis she wishes to stay full code at this time. patient's family is arranging for around the clock care at home today she refused to talk with palliative care about goals of care (9) DVT prophylaxis Current Visit: No Status: Acute Assessment and plan: heparin SQ - Subjective Interval history: Sitting up in bed comfortably she requested a duo neb due to shortness of breath she reports that her breathing has improved from admission denies fever, chills, chest pain - Constitutional Vitals: Temp Pulse Resp BP Pulse Ox 98.4 F 105 17 138/67 97 05/30/17 11:00 05/30/17 11:00 05/30/17 11:24 05/30/17 11:00 05/30/17 11:24 General appearance: Present: cachectic, A&O X 3, pleasant, no acute distress Exam: Gen.: Vitals noted. No acute distress. AAOx3 HEENT: oropharynx clear, Normocephalic, atraumatic Cardiac: tachycardia no murmur Pulmonary: bilaterally wheezes, rales and rhonchi diffuse throughout both lungs Abdomen: soft, nontender, Bowel sounds noted, no guarding Extremities: no BLE edema, nontender calf, no cyanosis or clubbing Neuro: A&Ox3, moves all extremities Psych: Appropriate mood and behavior Internal Medicine: Result - Labs CBC & Chem 7: 05/30/17 00:59 05/30/17 00:59 Labs: Short CBC 05/30/17 Range/Units 00:59 WBC 18.4 H (4.3-11.1) K/mcL Hgb 8.2 L (11.5-15.4) g/dL Hct 27.7 L (35.3-44.9) % Plt Count 642 H (140-400) K/mcL Neutrophils # 16.4 H (1.6-8.9) K/mcL BMP 05/30/17 00:59 Sodium 146 H Potassium 4.0 Chloride 106 Carbon Dioxide 30 H BUN 42 H Creatinine 1.74 H Glucose 115 H Calcium 9.0 - Impressions Impressions Chest CT 05/27/17 13:28 IMPRESSION: 1. Findings are most suggestive of multifocal pneumonia most significant in the left lower lobe. There are multifocal areas of infectious bronchiolitis as well. 2. Chronic atelectasis and bronchiectasis within the medial right middle lobe likely related to chronic infection or inflammation. 3. Several new subcentimeter nodular opacities throughout the lungs bilaterally, which are nonspecific but are felt to be related to infection. Recommend correlation with any history of malignancy. Recommend a short-term follow-up to ensure resolution. 4. Slight interval increase in size of a 3.3 cm left thyroid nodule. Consider further evaluation with ultrasound once acute issues have resolved. D/ / 05/27/2017 16:01:13 Fariba Grimaldo MD / earno Interpreting Provider: Fariba Grimaldo MD Consult Discharge Plan - Plan Referrals: Kristy Snow MD [Primary Care Provider] - <Emily Turner - Last Filed: 05/30/17 17:26> Date of Encounter: 05/30/17 - Constitutional Vitals: Temp Pulse Resp BP Pulse Ox 98.4 F 102 22 130/69 97 05/30/17 16:05 05/30/17 16:05 05/30/17 16:05 05/30/17 16:05 05/30/17 16:05 Internal Medicine: Result - Labs CBC & Chem 7: 05/30/17 00:59 05/30/17 00:59 Labs: Short CBC 05/30/17 Range/Units 00:59 WBC 18.4 H (4.3-11.1) K/mcL Hgb 8.2 L (11.5-15.4) g/dL Hct 27.7 L (35.3-44.9) % Plt Count 642 H (140-400) K/mcL Neutrophils # 16.4 H (1.6-8.9) K/mcL BMP 05/30/17 00:59 Sodium 146 H Potassium 4.0 Chloride 106 Carbon Dioxide 30 H BUN 42 H Creatinine 1.74 H Glucose 115 H Calcium 9.0 - Impressions Impressions Chest CT 05/27/17 13:28 IMPRESSION: 1. Findings are most suggestive of multifocal pneumonia most significant in the left lower lobe. There are multifocal areas of infectious bronchiolitis as well. 2. Chronic atelectasis and bronchiectasis within the medial right middle lobe likely related to chronic infection or inflammation. 3. Several new subcentimeter nodular opacities throughout the lungs bilaterally, which are nonspecific but are felt to be related to infection. Recommend correlation with any history of malignancy. Recommend a short-term follow-up to ensure resolution. 4. Slight interval increase in size of a 3.3 cm left thyroid nodule. Consider further evaluation with ultrasound once acute issues have resolved. D/ / 05/27/2017 16:01:13 Fariba Grimaldo MD / earnold Interpreting Provider: Fariba Grimaldo MD - Attending Attestation I saw and examined the patient independently. I have discussed with resident Dr Lucas regarding the management plan. Agree with the documentation. Patient feels better. Less cough or shortness of breath. Sputum culture shows gram-negative rods. CARLEY Bernstein, continue Zosyn, waiting for final result. Consult foster care social worker for placement as PT OT recommended ECF discharge. Patient has stable hemoglobin. Anemia more like chronic disease caused anemia per her anemia workup. No signs of active bleeding. Not warrant for further tests at this point although guaiac tested positive.
[2017-05-30] MEDS: Melatonin 3 MG TABLET PO PRN (21:55)
[2017-05-31 03:45] LABS: Hemoglobin 7.2 g/dL (11.5-15.4)
[2017-05-31 03:46] LABS: Basophils % 0.2 %; Eosinophils % 0.2 %; Hematocrit 24.5 % (35.3-44.9); Immature Granulocytes % 0.7 % (0-4); Lymphocytes # 0.6 K/mcL (0.6-4.6); Lymphocytes % 5.1 %; Mean Corpuscular HGB Conc 29.4 g/dL (31.6-35.5); Mean Corpuscular Hemoglobin 28.2 pg (28.0-33.3); Mean Corpuscular Volume 96.1 fL (83.0-100.0); Mean Platelet Volume 10.4 fL (9.4-12.4); Monocytes # 1.1 K/mcL (0.0-1.3); Neutrophils # 10.4 K/mcL (1.6-8.9); Platelet Count 530 K/mcL (140-400); Red Blood Count 2.55 M/mcL (3.82-4.97); Red Cell Distribution Width 14.3 % (11.5-14.5); Segmented Neutrophils % 84.8 %
[2017-05-31 04:08] LABS: Potassium 3.7 mEq/L (3.5-4.5)
[2017-05-31] MEDS: Piperacillin/Tazobactam 3.375 GM in D5% in Water (Mini-Bag+) 100 ML IVPB SCH ×2 (04:17→15:33)
[2017-05-31 04:33] LABS: Anisocytosis 1+ (Not Present); Hypochromasia Present (Not Present); Poikilocytosis 1+ (Not Present)
[2017-05-31] MEDS: Ipratropium/Albuterol Neb 3 ML IH SCH ×6 (04:33→23:33)
[2017-05-31] MEDS: Acetylcysteine 10% 2 ML INHSOL IH SCH ×5 (04:33→20:45)
[2017-05-31] MEDS: *HR* Heparin 5,000 UNIT/ML VIAL SQ SCH (06:28)
[2017-05-31] MEDS: Lactobacillus 1 EACH CAP.SPRINK PO SCH (08:41)
[2017-05-31] MEDS: Aspirin 81 MG TAB.CHEW PO SCH (08:41)
[2017-05-31] MEDS: Gabapentin 100 MG CAPSULE PO SCH ×3 (08:42→20:43)
[2017-05-31] MEDS: amLODIPine 5 MG TABLET PO SCH (08:42)
[2017-05-31] MEDS: Sennosides/Docusate Sodium TABLET PO SCH ×2 (08:42→20:44)
[2017-05-31] MEDS: Budesonide/Formoterol 160/4.5 MDI IH SCH ×2 (10:44→20:45)
--- NOTE | 2017-05-31 16:22 | Internal Med Progress Note ---
Date of Encounter: 05/31/17 Time of Encounter: 16:20 - Assessment and plan (1) Pneumonia Current Visit: No Status: Acute Assessment and plan: Mostly bacterial also concerned for aspirational / chemical pneumonitis cont IV abx Zosyn Duoneb PPI Cont O2.. try to wean her off the O2 to baseline Qualifiers: Pneumonia type: due to unspecified organism Laterality: right Lung location: unspecified part of lung Qualified Code(s): J18.9 - Pneumonia, unspecified organism (2) Sepsis Current Visit: No Status: Acute Assessment and plan: Due to pneumonia improving slowly WBC started trending down slowly Qualifiers: Sepsis type: sepsis due to unspecified organism Qualified Code(s): A41.9 - Sepsis, unspecified organism (3) Acute exacerbation of chronic obstructive airways disease Current Visit: No Status: Acute Assessment and plan: Will start low dose PO steroids Prednisone 40mg PO daily since she still has MILLER and requiring 3.5 lit o2 cont Duoneb (4) Anemia Current Visit: No Status: Chronic Assessment and plan: Hb dropped down to 7.2 stool occult blood positive, she does have history of GI bleed will give 1 U PRBC Lasix 40mg IV x 1 dose after PRBC iron profile reviewed from 04/24/17: iron 23, ferritin 484, transferrin 171 Cont monitor H/H Stopped Sq heparin will hold off on EGD at this time, as patient likely will not be able to tolerate it due to her respiratory status Qualifiers: Anemia type: iron deficiency Iron deficiency anemia type: unspecified iron deficiency Qualified Code(s): D50.9 - Iron deficiency anemia, unspecified (5) Acute and chronic respiratory failure with hypoxia Current Visit: No Status: Acute Assessment and plan: likely secondary to COPD exacerbation/PNA plan as above (6) CKD (chronic kidney disease) stage 3, GFR 30-59 ml/min Current Visit: No Status: Acute Assessment and plan: history of CKD continue to monitor creatinine renally dose all meds avoid nephrotoxins. (7) DVT prophylaxis Current Visit: No Status: Acute Assessment and plan: on SCD's d/c Heparin (8) Physical deconditioning Current Visit: Yes Status: Acute Assessment and plan: PT / OT eval may need ECF placement for short term rehab SW consulted - Subjective Interval history: Ms. Cardoza is a 86 year old female past medical history of COPD, advanced lung disease with home oxygen dependent at 2 lit, hypertension and back pain with history of compression fracture L3 L4 L5, Patient has been hospitalized over the past 5 weeks, for new compression fractures at the end of April, as well as pneumonia. Her daughter states that she has been home approximately a week from her last hospitalization and has been doing well up until the last 2 days where she has become increasingly short of breath. Pt was admitted here multi lobular pneumonia and started her on broad spec abx with Zosyn and supportive care. She is still on 3.5 lit O2, still having moderate MILLER and SOB. Denied any CP. - Constitutional Vitals: Temp Pulse Resp BP Pulse Ox 98.7 F 85 16 110/57 100 05/31/17 15:29 05/31/17 15:29 05/31/17 15:29 05/31/17 15:29 05/31/17 15:29 General appearance: Present: cachectic, A&O X 3, no acute distress - Head Head exam: Present: atraumatic, normal inspection - Respiratory Respiratory exam: Present: decreased breath sounds, rales, respiratory distress (mild), rhonchi (mild), wheezes (moderate) - Cardiovascular Cardiovascular exam: Present: RRR, +S1, +S2. Absent: systolic murmur - GI/Abdominal GI/Abdominal exam: Present: normal bowel sounds, soft. Absent: rebound, rigid, tenderness - Extremities Exam Extremities exam: Absent: calf tenderness, pedal edema, tenderness - Neurological Exam Neurological exam: Present: alert, oriented X3 - Psychiatric Psychiatric exam: Present: normal affect, normal mood Internal Medicine: Result - Labs CBC & Chem 7: 05/31/17 02:56 05/31/17 02:56 Labs: Short CBC 05/31/17 Range/Units 02:56 WBC 12.2 H (4.3-11.1) K/mcL Hgb 7.2 L (11.5-15.4) g/dL Hct 24.5 L (35.3-44.9) % Plt Count 530 H (140-400) K/mcL Neutrophils # 10.4 H (1.6-8.9) K/mcL BMP 05/31/17 02:56 Sodium 145 Potassium 3.7 Chloride 106 Carbon Dioxide 34 H BUN 41 H Creatinine 1.56 H Glucose 93 Calcium 9.0 Consult Discharge Plan - Plan Referrals: Kristy Snow MD [Primary Care Provider] -
[2017-05-31] MEDS ORDERED: Furosemide 40 MG/4 ML VIAL IVP ONE (16:33)
[2017-05-31] MEDS: predniSONE 20 MG TABLET PO SCH (16:53)
[2017-05-31] MEDS ORDERED: 0.9 % Sodium Chloride 250 ML ONE (19:31)
[2017-05-31] MEDS: Melatonin 3 MG TABLET PO PRN (20:45)
[2017-06-01] MEDS ORDERED: Furosemide 40 MG/4 ML VIAL ONE (00:34)
[2017-06-01] MEDS: Piperacillin/Tazobactam 3.375 GM in D5% in Water (Mini-Bag+) 100 ML IVPB SCH ×2 (04:32→15:31)
[2017-06-01] MEDS: Ipratropium/Albuterol Neb 3 ML IH SCH ×6 (04:38→23:30)
[2017-06-01] MEDS: Acetylcysteine 10% 2 ML INHSOL IH SCH ×4 (04:38→19:30)
[2017-06-01 06:17] LABS: Hematocrit 29.9 % (35.3-44.9); Immature Granulocytes % 0.6 % (0-4); Lymphocytes # 0.4 K/mcL (0.6-4.6); Lymphocytes % 3.9 %; Mean Corpuscular HGB Conc 31.1 g/dL (31.6-35.5); Mean Corpuscular Hemoglobin 28.2 pg (28.0-33.3); Mean Corpuscular Volume 90.6 fL (83.0-100.0); Mean Platelet Volume 10.1 fL (9.4-12.4); Monocytes # 0.2 K/mcL (0.0-1.3); Monocytes % 2.4 %; Neutrophils # 9.4 K/mcL (1.6-8.9); Platelet Count 503 K/mcL (140-400); Red Cell Distribution Width 15.7 % (11.5-14.5); Segmented Neutrophils % 93.1 %
[2017-06-01 06:28] LABS: Hemoglobin 9.3 g/dL (11.5-15.4)
[2017-06-01 06:36] LABS: Calcium 9.3 mg/dL (8.6-10.8); Magnesium 1.6 mg/dL (1.6-2.6)
[2017-06-01] MEDS: Budesonide/Formoterol 160/4.5 MDI IH SCH ×2 (07:34→19:31)
[2017-06-01] MEDS: amLODIPine 5 MG TABLET PO SCH (08:22)
[2017-06-01] MEDS: Sennosides/Docusate Sodium TABLET PO SCH ×2 (08:22→23:55)
[2017-06-01] MEDS: Gabapentin 100 MG CAPSULE PO SCH ×3 (08:22→23:55)
[2017-06-01] MEDS: Lactobacillus 1 EACH CAP.SPRINK PO SCH (08:24)
[2017-06-01] MEDS: predniSONE 20 MG TABLET PO SCH (08:33)
[2017-06-01] MEDS ORDERED: Furosemide 40 MG/4 ML VIAL IVP ONE (16:36)
--- NOTE | 2017-06-01 16:40 | Internal Med Progress Note ---
Date of Encounter: 06/01/17 Time of Encounter: 16:38 - Assessment and plan (1) Pneumonia Current Visit: No Status: Acute Assessment and plan: Mostly bacterial also concerned for aspirational / chemical pneumonitis Improving slowly Changed to PO Abx Augmentin Duoneb PPI Cont O2.. try to wean her off the O2 to baseline Qualifiers: Pneumonia type: due to unspecified organism Laterality: right Lung location: unspecified part of lung Qualified Code(s): J18.9 - Pneumonia, unspecified organism (2) Sepsis Current Visit: No Status: Acute Assessment and plan: Due to pneumonia improving slowly WBC started trending down slowly Qualifiers: Sepsis type: sepsis due to unspecified organism Qualified Code(s): A41.9 - Sepsis, unspecified organism (3) Acute exacerbation of chronic obstructive airways disease Current Visit: No Status: Acute Assessment and plan: Cont PO steroids Prednisone 40mg PO daily since she still has MILLER and requiring 3.5 lit o2 cont Duoneb (4) Anemia Current Visit: No Status: Chronic Assessment and plan: Hb dropped down to 7.2 y/d Improved to 9.3 with 1 U PRBC stool occult blood positive, she does have history of GI bleed iron profile reviewed from 04/24/17: iron 23, ferritin 484, transferrin [address] her on Iron supplements Cont monitor H/H Stopped Sq heparin will hold off on EGD at this time, as patient likely will not be able to tolerate it due to her respiratory status Qualifiers: Anemia type: iron deficiency Iron deficiency anemia type: unspecified iron deficiency Qualified Code(s): D50.9 - Iron deficiency anemia, unspecified (5) Acute and chronic respiratory failure with hypoxia Current Visit: No Status: Acute Assessment and plan: likely secondary to COPD exacerbation/PNA plan as above (6) Acute diastolic heart failure Current Visit: Yes Status: Acute Assessment and plan: Pt might have mild diastolic CHF exacerbation Reviewed 2D Echo showed normal LVEF 55-60%, Mild diastolic dysfunction will give another dose of Lasix Ordered CXR (7) CKD (chronic kidney disease) stage 3, GFR 30-59 ml/min Current Visit: No Status: Acute Assessment and plan: history of CKD continue to monitor creatinine renally dose all meds avoid nephrotoxins. (8) Physical deconditioning Current Visit: Yes Status: Acute Assessment and plan: PT / OT eval may need ECF placement for short term rehab SW consulted (9) DVT prophylaxis Current Visit: No Status: Acute Assessment and plan: on SCD's d/c Heparin - Subjective Interval history: Ms. Cardoza is a 86 year old female past medical history of COPD, advanced lung disease with home oxygen dependent at 2 lit, hypertension and back pain with history of compression fracture L3 L4 L5, Patient has been hospitalized over the past 5 weeks, for new compression fractures at the end of April, as well as pneumonia. Her daughter states that she has been home approximately a week from her last hospitalization and has been doing well up until the last 2 days where she has become increasingly short of breath. Pt was admitted here multi lobular pneumonia and started her on broad spec abx with Zosyn and supportive care. She is still on 3.5 lit O2, still having moderate MILLER and SOB. Denied any CP. Still have occasional cough - Constitutional Vitals: Temp Pulse Resp BP Pulse Ox 97.6 F 99 18 138/66 96 06/01/17 15:50 06/01/17 15:50 06/01/17 15:50 06/01/17 15:50 06/01/17 15:50 General appearance: Present: cachectic, mild distress, A&O X 3 - Head Head exam: Present: atraumatic, normal inspection - Respiratory Respiratory exam: Present: decreased breath sounds, respiratory distress (mild) , rhonchi, wheezes (moderate). Absent: rales - Cardiovascular Cardiovascular exam: Present: RRR, +S1, +S2. Absent: tachycardia - GI/Abdominal GI/Abdominal exam: Present: normal bowel sounds, soft. Absent: rebound, rigid, tenderness - Extremities Exam Extremities exam: Absent: cyanotic, pedal edema, tenderness - Back Exam Back exam: Absent: CVA tenderness (L), CVA tenderness (R) - Neurological Exam Neurological exam: Present: alert, oriented X3 - Psychiatric Psychiatric exam: Present: normal affect, normal mood Internal Medicine: Result - Labs CBC & Chem 7: 06/01/17 06:04 06/01/17 06:04 Labs: Short CBC 06/01/17 Range/Units 06:04 WBC 10.1 (4.3-11.1) K/mcL Hgb 9.3 L D (11.5-15.4) g/dL Hct 29.9 L (35.3-44.9) % Plt Count 503 H (140-400) K/mcL Neutrophils # 9.4 H (1.6-8.9) K/mcL BMP 06/01/17 06:04 Sodium 144 Potassium 4.0 Chloride 101 Carbon Dioxide 34 H BUN 43 H Creatinine 1.61 H Glucose 126 H Calcium 9.3 - Impressions Impressions Echocardiogram 06/01/17 16:33 Impressions: LVEF 55-60%. Mild concentric left ventricular hypertrophy. Mild left ventricular diastolic dysfunction. Normal right ventricular structure and function. Mild mitral regurgitation. Moderate tricuspid regurgitation. Mild pulmonic regurgitation. Mild to moderate pulmonary hypertension. Left Ventricular Wall Motion: Rest Echo Findings All wall segments showed normal motion. Findings: Study Quality * Technically adequate exam. ECG Findings * Sinus tachycardia. Left Ventricle * Mild concentric left ventricular hypertrophy. * Mild left ventricular diastolic dysfunction. * LVEF 55-60%. * Normal LV size. Right Ventricle * Normal right ventricular structure and function. Left Atrium * Moderately dilated left atrium. Right Atrium * Normal right atrial size. Aortic Valve * No aortic regurgitation. * Trileaflet aortic valve. * Normal aortic valve structure. * No aortic stenosis. Mitral Valve * Normal mitral valve structure. * No mitral stenosis. * Mild mitral regurgitation. Tricuspid Valve * Normal tricuspid valve structure. * Moderate tricuspid regurgitation. * Estimated RA pressure is 3 mmHg. * Estimated RVSP is 48 mmHg. * Mild to moderate pulmonary hypertension. Pulmonic Valve * Pulmonic valve is not well visualized. * No pulmonic stenosis. * Mild pulmonic regurgitation. Pulmonary Artery * Pulmonary artery not well visualized. Aorta * Normally sized aortic root. Pericardium * There is no pericardial effusion present. Interatrial Septum * No evidence of PFO by color Doppler. IVC * Normal IVC dimensions and inspiratory collapse. Consult Discharge Plan - Plan Referrals: Kristy Snow MD [Primary Care Provider] - Brody Hurley MD [Partnered Physician] - 06/28/17 1:45 pm
[2017-06-01] MEDS: Melatonin 3 MG TABLET PO PRN (23:55)
[2017-06-02] MEDS: Melatonin 3 MG TABLET PO PRN ×2 (00:17→20:23)
[2017-06-02] MEDS: Sennosides/Docusate Sodium TABLET PO SCH ×3 (02:16→20:20)
[2017-06-02] MEDS: Acetylcysteine 10% 2 ML INHSOL IH SCH ×4 (04:37→19:46)
[2017-06-02] MEDS: Ipratropium/Albuterol Neb 3 ML IH SCH ×6 (04:37→23:02)
[2017-06-02 05:23] LABS: Basophils % 0.1 %; Hematocrit 29.3 % (35.3-44.9); Hemoglobin 9.2 g/dL (11.5-15.4); Immature Granulocytes % 0.5 % (0-4); Lymphocytes # 0.6 K/mcL (0.6-4.6); Lymphocytes % 4.8 %; Mean Corpuscular HGB Conc 31.4 g/dL (31.6-35.5); Mean Corpuscular Hemoglobin 28.8 pg (28.0-33.3); Mean Corpuscular Volume 91.8 fL (83.0-100.0); Mean Platelet Volume 9.5 fL (9.4-12.4); Monocytes # 1.1 K/mcL (0.0-1.3); Monocytes % 8.6 %; Neutrophils # 11.1 K/mcL (1.6-8.9); Platelet Count 519 K/mcL (140-400); Red Blood Count 3.19 M/mcL (3.82-4.97); Red Cell Distribution Width 15.1 % (11.5-14.5)
[2017-06-02] MEDS: Budesonide/Formoterol 160/4.5 MDI IH SCH ×2 (08:30→19:47)
[2017-06-02] MEDS: Lactobacillus 1 EACH CAP.SPRINK PO SCH (08:59)
[2017-06-02] MEDS: Gabapentin 100 MG CAPSULE PO SCH ×3 (08:59→20:20)
[2017-06-02] MEDS: amLODIPine 5 MG TABLET PO SCH (09:00)
[2017-06-02] MEDS: predniSONE 20 MG TABLET PO SCH (09:00)
[2017-06-02] MEDS ORDERED: predniSONE 20 MG TABLET PO SCH (15:46)
--- NOTE | 2017-06-02 16:05 | Internal Med Progress Note ---
Date of Encounter: 06/02/17 Time of Encounter: 16:02 - Assessment and plan (1) Pneumonia Current Visit: No Status: Acute Assessment and plan: Mostly bacterial also concerned for aspirational / chemical pneumonitis Improving slowly Cont PO Abx Augmentin # 7/10 Duoneb PPI Cont O2.. try to wean her off the O2 to baseline Qualifiers: Pneumonia type: due to unspecified organism Laterality: right Lung location: unspecified part of lung Qualified Code(s): J18.9 - Pneumonia, unspecified organism (2) Sepsis Current Visit: No Status: Acute Assessment and plan: Due to pneumonia improving slowly WBC started trending down slowly Qualifiers: Sepsis type: sepsis due to unspecified organism Qualified Code(s): A41.9 - Sepsis, unspecified organism (3) Acute exacerbation of chronic obstructive airways disease Current Visit: No Status: Acute Assessment and plan: Started tapering PO steroids Prednisone 30mg PO daily cont Duoneb and O2 (4) Anemia Current Visit: No Status: Chronic Assessment and plan: Hb dropped down to 7.2 y/d Improved and stable Hb with 1 U PRBC stool occult blood positive, she does have history of GI bleed iron profile reviewed from 04/24/17: iron 23, ferritin 484, transferrin [address] her on Iron supplements Cont monitor H/H Stopped Sq heparin will hold off on EGD at this time, as patient likely will not be able to tolerate it due to her respiratory status Qualifiers: Anemia type: iron deficiency Iron deficiency anemia type: unspecified iron deficiency Qualified Code(s): D50.9 - Iron deficiency anemia, unspecified (5) Acute and chronic respiratory failure with hypoxia Current Visit: No Status: Acute Assessment and plan: likely secondary to COPD exacerbation/PNA plan as above (6) Acute diastolic heart failure Current Visit: Yes Status: Acute Assessment and plan: Pt might have mild diastolic CHF exacerbation Reviewed 2D Echo showed normal LVEF 55-60%, Mild diastolic dysfunction Improving started on Lasix 40mg PO Daily Reviewed CXR -Severe emphysematous changes noticed..No vascular congestion noticed (7) CKD (chronic kidney disease) stage 3, GFR 30-59 ml/min Current Visit: No Status: Acute Assessment and plan: history of CKD continue to monitor creatinine renally dose all meds avoid nephrotoxins. (8) Physical deconditioning Current Visit: Yes Status: Acute Assessment and plan: PT / OT eval may need ECF placement Did peer to peer review with insurance provider - they denied for SNF / Short term rehab placement.. Stated as [facility] care is appropriate for pt. will talk to pt and family about further plan of care (9) DVT prophylaxis Current Visit: No Status: Acute Assessment and plan: on SCD's d/c Heparin - Subjective Interval history: Ms. Cardoza is a 86 year old female past medical history of COPD, advanced lung disease with home oxygen dependent at 2 lit, hypertension and back pain with history of compression fracture L3 L4 L5, Patient has been hospitalized over the past 5 weeks, for new compression fractures at the end of April, as well as pneumonia. Her daughter states that she has been home approximately a week from her last hospitalization and has been doing well up until the last 2 days where she has become increasingly short of breath. Pt was admitted here multi lobular pneumonia and started her on broad spec abx with Zosyn and supportive care. She is still on 3 lit O2, still having moderate MILLER and SOB. Denied any CP. Still have occasional cough - Constitutional Vitals: Temp Pulse Resp BP Pulse Ox 97.8 F 86 16 129/78 98 06/02/17 09:48 06/02/17 09:48 06/02/17 11:52 06/02/17 11:52 06/02/17 11:52 General appearance: Present: cachectic, A&O X 3, answers questions appropriately - Head Head exam: Present: atraumatic, normal inspection - Respiratory Respiratory exam: Present: decreased breath sounds, wheezes (moderate). Absent : rales, respiratory distress, rhonchi - Cardiovascular Cardiovascular exam: Present: RRR, +S1, +S2. Absent: systolic murmur - GI/Abdominal GI/Abdominal exam: Present: normal bowel sounds, soft. Absent: rebound, rigid, tenderness - Extremities Exam Extremities exam: Absent: calf tenderness, pedal edema, tenderness - Back Exam Back exam: Absent: CVA tenderness (L), CVA tenderness (R) - Neurological Exam Neurological exam: Present: alert, oriented X3 - Psychiatric Psychiatric exam: Present: normal affect, normal mood Internal Medicine: Result - Labs CBC & Chem 7: 06/02/17 05:13 06/01/17 06:04 Labs: Short CBC 06/02/17 Range/Units 05:13 WBC 12.8 H (4.3-11.1) K/mcL Hgb 9.2 L (11.5-15.4) g/dL Hct 29.3 L (35.3-44.9) % Plt Count 519 H (140-400) K/mcL Neutrophils # 11.1 H (1.6-8.9) K/mcL - Impressions Impressions Chest X-Ray 06/01/17 16:36 IMPRESSION: No significant interval changes since 05/27/2017. D/ / Amrit Grimaldo MD / Amrit Grimaldo MD Interpreting Provider: Amrit Grimaldo MD Consult Discharge Plan - Plan Referrals: Kristy Snow MD [Primary Care Provider] - Brody Hurley MD [Partnered Physician] - 06/28/17 1:45 pm
[2017-06-02] MEDS: Furosemide 40 MG TABLET PO SCH (17:39)
[2017-06-02] MEDS ORDERED: Ondansetron 4 MG/2 ML VIAL IVP ONE (23:37)
[2017-06-02] MEDS ORDERED: 0.9 % Sodium Chloride 1,000 ML IVC SCH (23:45)
--- NOTE | 2017-06-02 23:52 | Event Note ---
Date of Encounter: 06/02/17 Time of Encounter: 23:30 Called by the nurse that patient has nausea and coffee-ground emesis. Check patient at bedside, patient has a mild nausea. In the vomiting bag, there is about 20 ml dark fluid, no fresh blood. On exam, Vitals stable, pt has no epigastric tenderness. Review her chart, she has stool guaiac positive previously. plan: - NPO, IVF. - H/H stat - Send vomitting to lab for occult blood test - IV PPI, Protonix 40 mg IV q12h - Vitals every 2 hours. - GI consult in a.m. - Continue symptomatic treatment for nausea - Patient is not on any anti-coagulation at this time
[2017-06-02] MEDS: Pantoprazole 40 MG VIAL IVP SCH (23:58)
[2017-06-03 00:12] LABS: Hematocrit 28.1 % (35.3-44.9); Hemoglobin 8.7 g/dL (11.5-15.4); Immature Granulocytes % 0.4 % (0-4); Immature Platelets 3.2 % (1.1-6.1); Lymphocytes # 0.4 K/mcL (0.6-4.6); Lymphocytes % 4.1 %; Mean Corpuscular Hemoglobin 28.6 pg (28.0-33.3); Mean Corpuscular Volume 92.4 fL (83.0-100.0); Mean Platelet Volume 9.4 fL (9.4-12.4); Monocytes # 0.5 K/mcL (0.0-1.3); Monocytes % 5.5 %; Neutrophils # 7.6 K/mcL (1.6-8.9); Platelet Count 527 K/mcL (140-400); Red Blood Count 3.04 M/mcL (3.82-4.97); Red Cell Distribution Width 14.8 % (11.5-14.5)
[2017-06-03 00:23] LABS: Calcium 8.9 mg/dL (8.6-10.8); Magnesium 1.6 mg/dL (1.6-2.6)
[2017-06-03] MEDS: Ipratropium/Albuterol Neb 3 ML IH SCH ×5 (03:39→21:12)
[2017-06-03] MEDS: Acetylcysteine 10% 2 ML INHSOL IH SCH ×4 (03:39→21:12)
[2017-06-03] MEDS: Pantoprazole 40 MG VIAL IVP SCH (05:09)
[2017-06-03] MEDS: Budesonide/Formoterol 160/4.5 MDI IH SCH ×2 (07:44→21:13)
[2017-06-03] MEDS: Lactobacillus 1 EACH CAP.SPRINK PO SCH (08:07)
[2017-06-03] MEDS: Gabapentin 100 MG CAPSULE PO SCH ×3 (08:07→20:11)
[2017-06-03] MEDS: Sennosides/Docusate Sodium TABLET PO SCH ×2 (08:07→20:11)
[2017-06-03] MEDS: Furosemide 40 MG TABLET PO SCH (08:08)
[2017-06-03] MEDS: amLODIPine 5 MG TABLET PO SCH (08:08)
[2017-06-03] MEDS ORDERED: Lidocaine -MPF 2% 5 ML VIAL INFILT ONE (09:38)
[2017-06-03] MEDS ORDERED: *HR* Propofol 200 MG/20 ML VIAL IVP ONE (09:38)
--- NOTE | 2017-06-03 10:03 | Anesthesia Evaluation PreOp ---
<Mark Brewster L - Last Filed: 06/03/17 10:21> Date of Encounter: 06/03/17 Time of Encounter: 10:01 - Past History Planned Operation: EGD re: coffee ground emesis Cardiac History: HTN Pulmonary History: COPD (acute and chronic respiratory failure with hypoxia. MILLER , Recent pneumonia s/p Abx regimen), Other (dyspnea) Other Medical History: Renal (CKD stage 3), Other (sepsis acute, compression fracture L3-L5) : No Alcohol Use: none Drug use: none Medications and Allergies Aspirin 81 mg PO DAILY 07/21/15 [History] Gabapentin [Neurontin] 100 mg PO TID 07/21/15 [History] Omeprazole [PriLOSEC] 20 mg PO HS 03/16/16 [History] hydroCHLOROthiazide [Hydrochlorothiazide] 12.5 mg PO Q48H 03/22/16 [History] 3 Allergy/AdvReac Type Severity Reaction Status Date / Time cephalexin [From Keflex] Allergy Flushing Verified 03/16/16 21:08 moxifloxacin Allergy Flushing Verified 03/16/16 21:08 - Meds/Allergy Pre-op Review Medications Reviewed: Yes Allergies Reviewed: Yes Beta Blockers on Current Med List: Yes (06/03/17 @ 0807) Anesthesia Results - Labs 06/03/17 00:06 06/03/17 00:06 Vital Signs Temp Pulse Resp BP Pulse Ox 06/03/17 09:37 98 06/03/17 06:48 98.4 F 92 14 149/76 98 06/03/17 04:12 98.9 F 92 16 125/62 98 06/03/17 03:42 16 99 06/03/17 01:40 99.4 F 89 18 135/71 100 06/02/17 23:54 99.4 F 88 20 129/69 97 06/02/17 23:04 18 98 06/02/17 19:51 18 96 06/02/17 19:48 98.7 F 90 20 128/62 93 06/02/17 17:55 98.6 F 85 93 06/02/17 15:53 97.6 F 92 20 115/61 94 06/02/17 15:15 16 115/61 92 06/02/17 11:52 16 129/78 98 Intake and Output 10/06/03/17 06/03/17 23:59 07:59 15:59 Intake Total 200 / 200 Output Total 300 / 300 0 / 0 200 / 200 Balance -100 / -100 0 / 0 -200 / -200 Intake: Oral 200 / 200 Output: Urine 300 / 300 0 / 0 200 / 200 Other: Meal Dinner Percent of Meal Consumed 20% Weight 39.009 kg Blood Glucose* 110 Patient Weight 06/03/17 23:59 Weight 39.009 kg Anesthesia Exam Vital Signs Temp Pulse Resp BP Pulse Ox 06/03/17 09:37 98 06/03/17 06:48 98.4 F 92 14 149/76 98 06/03/17 04:12 98.9 F 92 16 125/62 98 06/03/17 03:42 16 99 06/03/17 01:40 99.4 F 89 18 135/71 100 06/02/17 23:54 99.4 F 88 20 129/69 97 06/02/17 23:04 18 98 06/02/17 19:51 18 96 06/02/17 19:48 98.7 F 90 20 128/62 93 06/02/17 17:55 98.6 F 85 93 06/02/17 15:53 97.6 F 92 20 115/61 94 06/02/17 15:15 16 115/61 92 06/02/17 11:52 16 129/78 98 Intake and Output 06/02/17 06/03/17 06/03/17 23:59 07:59 15:59 Intake Total 200 / 200 Output Total 300 / 300 0 / 0 200 / 200 Balance -100 / -100 0 / 0 -200 / -200 Intake: Oral 200 / 200 Output: Urine 300 / 300 0 / 0 200 / 200 Other: Meal Dinner Percent of Meal Consumed 20% Weight 39.009 kg Blood Glucose* 110 Patient Weight 06/03/17 23:59 Weight 39.009 kg Pain Scale: 0 Pain Scale Used: Numeric (1 - 10), [place] (Faces) - HEENT Pupil (Motor): Pupils equal Mallampati: I Teeth: Edentulous Oral Opening: Less than or equal to 3 - DX BOARD OPERATOR LOC: Oriented DX BOARD OPERATOR Motor: Normal RUE, Normal LUE, Normal RLE, Normal LLE, Normal Face DX BOARD OPERATOR Sensory: Normal: RUE, LUE, RLE, LLE, Face - Cardiac Rhythm: Regular - Pulmonary Breath Sounds: bilateral Clear Respiratory Effort: Symmetrical Anesthesia Assess/Plan ASA Score: 3 Modified Tra Scale for Level of Consciousness: Cooperative, oriented, and tranquil Anesthetic Plan: MAC Autologous Blood: No Monitoring Plan: Standard Monitors Recovery Plan: Other <Janet Galeano - Last Filed: 06/03/17 10:47> Date of Encounter: 06/03/17 - Past History Other Medical History: Renal, GERD (Likely GIB - coffee ground emesis this hospitalization) Anesthesia History: No Prior Anesthetic Complications, Past Anesthesia Anesthesia Results - Labs 06/03/17 00:06 06/03/17 00:06 Laboratory Results Laboratory Tests 04/24/17 05/06/17 05/06/17 04:25 04:45 04:45 PT 11.8 INR 1.1 APTT 30.3 Est GFR (Non-Af Amer) Iron 23 L % Saturation 10 L Transferrin 171 L Ferritin 484 H 06/03/17 00:06 PT INR APTT Est GFR (Non-Af Amer) 29 L Iron % Saturation Transferrin Ferritin Impressions Chest CT 05/27/17 13:28 IMPRESSION: 1. Findings are most suggestive of multifocal pneumonia most significant in the left lower lobe. There are multifocal areas of infectious bronchiolitis as well. 2. Chronic atelectasis and bronchiectasis within the medial right middle lobe likely related to chronic infection or inflammation. 3. Several new subcentimeter nodular opacities throughout the lungs bilaterally, which are nonspecific but are felt to be related to infection. Recommend correlation with any history of malignancy. Recommend a short-term follow-up to ensure resolution. 4. Slight interval increase in size of a 3.3 cm left thyroid nodule. Consider further evaluation with ultrasound once acute issues have resolved. D/ / 05/27/2017 16:01:13 Fariba Grimaldo MD / earnold Interpreting Provider: Fariba Grimaldo MD Echocardiogram 06/01/17 16:33 Impressions: LVEF 55-60%. Mild concentric left ventricular hypertrophy. Mild left ventricular diastolic dysfunction. Normal right ventricular structure and function. Mild mitral regurgitation. Moderate tricuspid regurgitation. Mild pulmonic regurgitation. Mild to moderate pulmonary hypertension. Left Ventricular Wall Motion: Rest Echo Findings All wall segments showed normal motion. Findings: Study Quality * Technically adequate exam. ECG Findings * Sinus tachycardia. Left Ventricle * Mild concentric left ventricular hypertrophy. * Mild left ventricular diastolic dysfunction. * LVEF 55-60%. * Normal LV size. Right Ventricle * Normal right ventricular structure and function. Left Atrium * Moderately dilated left atrium. Right Atrium * Normal right atrial size. Aortic Valve * No aortic regurgitation. * Trileaflet aortic valve. * Normal aortic valve structure. * No aortic stenosis. Mitral Valve * Normal mitral valve structure. * No mitral stenosis. * Mild mitral regurgitation. Tricuspid Valve * Normal tricuspid valve structure. * Moderate tricuspid regurgitation. * Estimated RA pressure is 3 mmHg. * Estimated RVSP is 48 mmHg. * Mild to moderate pulmonary hypertension. Pulmonic Valve * Pulmonic valve is not well visualized. * No pulmonic stenosis. * Mild pulmonic regurgitation. Pulmonary Artery * Pulmonary artery not well visualized. Aorta * Normally sized aortic root. Pericardium * There is no pericardial effusion present. Interatrial Septum * No evidence of PFO by color Doppler. IVC * Normal IVC dimensions and inspiratory collapse. Chest X-Ray 06/01/17 16:36 IMPRESSION: No significant interval changes since 05/27/2017. D/ / Amrit Grimaldo MD / Amrit Grimaldo MD Interpreting Provider: Amrit Grimaldo MD Anesthesia Exam Height: 5'2 Weight: 86# Anes Supervising Prov Stmt: PT seen/evaluated, R&B Discussed, questions answered and consent obtained from youngest Daughter Eileen/SELVIN. Carina Handy MD
[2017-06-03] MEDS ORDERED: Tetracaine/Benzocaine/Butamben 200MG/SPRAY (100SPY/BOT) MM ONE (11:06)
[2017-06-03] MEDS ORDERED: Ipratropium/Albuterol Neb 3 ML ONE (11:34)
--- NOTE | 2017-06-03 12:20 | Gastroenterology Consult Note ---
<CarmelinaEvans Mireles - Last Filed: 06/03/17 12:17> Date of Encounter: 06/03/17 Time of Encounter: 11:45 - Assessment and plan (1) GI bleed Current Visit: No Status: Acute Assessment and plan: Fecal occult blood test positive on 05/28/2017. patient developed coffee-ground emesis which was gastric occult blood positive. Plan for EGD today to r/o esophagitis, gastritis, duodenitis, PUD, MW tear, or AVM. Qualifiers: GI bleed type/associated pathology: unspecified gastrointestinal hemorrhage type Qualified Code(s): K92.2 - Gastrointestinal hemorrhage, unspecified (2) Anemia Current Visit: No Status: Chronic Assessment and plan: Hgb 8.1 on admission and decreased to 7.2 and received one unit PRBC. This morning Hgb 8.7. Continue to monitor CBC and transfuse PRBC as needed. Plan for EGD today. Qualifiers: Anemia type: iron deficiency Iron deficiency anemia type: unspecified iron deficiency Qualified Code(s): D50.9 - Iron deficiency anemia, unspecified (3) Pneumonia Current Visit: No Status: Acute Qualifiers: Pneumonia type: due to unspecified organism Laterality: right Lung location: unspecified part of lung Qualified Code(s): J18.9 - Pneumonia, unspecified organism (4) COPD (chronic obstructive pulmonary disease) Current Visit: No Status: Chronic Qualifiers: COPD type: emphysema Emphysema type: unspecified Qualified Code(s): J43.9 - Emphysema, unspecified - Time Spent With Patient Total time spent is greater than 50% in coordination of care (as documented) at patient's floor/unit and/or counseling patient: GI History of Present Illness - Data of Consult Patient: new to practice Consult date: 06/03/17 Requesting Physician: Haile Gallagher MD - Consult Narrative Reason for consult: coffee ground emesis History of present illness: Ms. Cardoza is a 86 year old female with PMHx of COPD, HTN who has been hospitalized recently for compression fractures L3 L4 L5 and pneumonia. She became increasingly short of breath and unable to perform ADLs. She was admitted with pneumonia and sepsis (heart rate 120 white count was 22). Pulmonology consulted and she was started on antibiotics. Pt noted to be anemic on admission with Hgb 8.1. On 05/31 Hgb 7.2 and she received 1 unit PRBC. This AM, Hgb 8.7. Fecal occult blood test positive on 05/28. Pt complained of nausea yesterday and had episode of coffee-ground emesis that was gastric occult blood positive. We have been consulted to evaluate her coffee ground emesis. Procedures: EGD 04/30/2010 Dr. Hill: Gastritis Colonoscopy 04/30/2010 Dr. 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 NSAIDs: ASA Anticoagulation: None Past Med Surg Social Fam HX - Past Medical History Medical history: COPD, hypertension, other Psychiatric history: no psych history - Past Surgical History Surgical History: no surgical history - Social History Smoking Status: Never smoker Smokeless Tobacco Status: No Alcohol use: none Drug use: none - Family History Mother Living Status: Hx Family Neuromuscular Disorders: Yes Father Living Status: Hx Family Endocrine Disorder: Yes - Gastrointestinal Gastrointestinal: Present: as per HPI - Constitutional Constitutional: as per HPI - EENT Eyes: as per HPI Ears: Present: as per HPI Nose, mouth and throat: Present: as per HPI - Cardiovascular Cardiovascular ROS: Present: as per HPI - Respiratory Respiratory IM: Present: as per HPI - Genitourinary Genitourinary: Absent: change in color, Urinary frequency - Neurological ROS Neurological GI: Present: as per HPI - Hematologic/Lymphatic Hematologic/Lymphatic pediatric: Present: as per HPI - Musculoskeletal Musculoskeletal ROS GI: Present: as per HPI - Integumentary Integumentary GI: Present: as per HPI - Psychiatric ROS Psychiatric GI: Present: as per HPI - Endocrine Endocrine IM: Present: as per HPI - Constitutional Vitals: Temp Pulse Resp BP Pulse Ox 98 F 88 16 113/60 87 06/03/17 12:00 06/03/17 12:00 06/03/17 12:00 06/03/17 12:00 06/03/17 12:00 General appearance: Present: cachectic, cooperative, A&O X 3, answers questions appropriately - Head Head exam: Present: atraumatic, normocephalic - Eye Eye exam: Present: normal appearance, sclera anicteric - ENT ENT exam: Present: mucous membranes dry - Neck Neck exam general surgery: Present: normal inspection, trachea midline - Respiratory Respiratory exam: Present: decreased breath sounds, wheezes - Cardiovascular Cardiovascular exam: Present: RRR, +S1, +S2 - GI/Abdominal GI/Abdominal exam: Present: soft, no peritoneal signs. Absent: distended, firm , guarding, tenderness - Rectal Rectal exam: Present: deferred - Extremities Exam Extremities exam: Present: warm - Neurological Exam Neurological exam: Present: no focal deficits - Psychiatric Psychiatric exam: Present: normal affect, normal mood - Skin Skin exam: Present: dry, intact, normal color, warm Results - Labs CBC & Chem 7: 06/03/17 00:06 06/03/17 00:06 Labs: Last Result Calcium 8.9 mg/dL (8.6-10.8) 06/03/17 00:06 Vitamin B12 688 pg/mL (213-816) 05/29/17 01:12 Folate 16.0 ng/mL (7.0-31.4) 05/29/17 01:12 Gastric Occult Blood Positive (Negative) A 06/02/17 23:50 Stool Occult Blood Positive (Negative) A 05/28/17 11:30 Entire Visit Hgb 8.7 g/dL (11.5-15.4) L 06/03/17 00:06 Hct 28.1 % (35.3-44.9) L 06/03/17 00:06 Folate 16.0 ng/mL (7.0-31.4) 05/29/17 01:12 Consult Discharge Plan - Plan Additional Instructions: Take medications and inhalers as prescribed Continue to use BiPAP at night and as needed during the day Continue physical therapy Follow-up with Dr. Reyez Follow-up with Dr. Snow Referrals: Kristy Snow MD [Primary Care Provider] - 06/13/17 11:15 am Brody Hurley MD [Partnered Physician] - 06/28/17 1:45 pm Juliann Reyez MD [Partnered Physician] - (SENT WEB REQUEST ON 06-03-17 @ 0779) Prescriptions: Albuterol Sulfate [Albuterol Inhaler] 1 puff IH Q6HR PRN #1 inhaler PRN Reason: Dyspnea Budesonide/Formoterol 160/4.5 [Symbicort 160/4.5] 2 puff IH BIDR #1 inhaler Ferrous Sulfate 325 mg PO DAILY@0800 #30 tablet Lactobacillus [Culturelle] 2 each PO DAILY #60 cap.sprink Nystatin POWDER [Nystop] 1 appl TP BID #1 bottle Omeprazole [PriLOSEC] 20 mg PO BIDAC #60 capsule. Sucralfate [Carafate] 1 gm PO QIDAC #30 tablet <MadhuRoni - Last Filed: 06/13/17 11:52> Date of Encounter: 06/03/17 - Time Spent With Patient Total time spent is greater than 50% in coordination of care (as documented) at patient's floor/unit and/or counseling patient: GI History of Present Illness - Data of Consult Requesting Physician: Haile Gallagher MD - Consult Narrative History of present illness: Ms. Cardoza is a 86 year old female - Constitutional Vitals: Temp Pulse Resp BP Pulse Ox 98.6 F 79 25 113/59 94 06/07/17 07:45 06/07/17 07:45 06/07/17 07:45 06/07/17 07:45 06/07/17 07:45 Results - Labs CBC & Chem 7: 06/10/17 03:03 06/13/17 02:40 Labs: Last Result Calcium 8.7 mg/dL (8.6-10.8) 06/06/17 03:21 Vitamin B12 688 pg/mL (213-816) 05/29/17 01:12 Folate 16.0 ng/mL (7.0-31.4) 05/29/17 01:12 Gastric Occult Blood Positive (Negative) A 06/02/17 23:50 Stool Occult Blood Positive (Negative) A 05/28/17 11:30 Entire Visit Hgb 8.7 g/dL (11.5-15.4) L 06/07/17 02:52 Hct 28.3 % (35.3-44.9) L 06/07/17 02:52 Folate 16.0 ng/mL (7.0-31.4) 05/29/17 01:12 - Attending Attestation 86 year old white female with dysphagia, GI bleed. Plan EGD. Discussed with all her three daughters over the phone and with patient. I examined and interviewed Ms. Cardoza myself and reviewed her labs and scans for this consultation.
--- NOTE | 2017-06-03 16:04 | Internal Med Progress Note ---
Date of Encounter: 06/03/17 Time of Encounter: 16:02 - Assessment and plan (1) Acute and chronic respiratory failure with hypoxia Current Visit: No Status: Acute Assessment and plan: COPD exacerbation/PNA Slightly worsened today due to procedure this morning will get CXR now also switched to IV Steroids MARYANN Duoneb Cont monitoring closely Tolerating Venturi Mask ok so far..Try to wean her off that as she tolerates (2) Pneumonia Current Visit: No Status: Acute Assessment and plan: Mostly bacterial also concerned for aspirational / chemical pneumonitis Improving slowly changed abx to Doxycycline since pt is not able to swallow Augmentin # 8/10 Duoneb PPI Cont O2.. try to wean her off the O2 to baseline Qualifiers: Pneumonia type: due to unspecified organism Laterality: right Lung location: unspecified part of lung Qualified Code(s): J18.9 - Pneumonia, unspecified organism (3) Sepsis Current Visit: No Status: Acute Assessment and plan: Due to pneumonia improving slowly WBC started trending down slowly Qualifiers: Sepsis type: sepsis due to unspecified organism Qualified Code(s): A41.9 - Sepsis, unspecified organism (4) Esophagitis, acute Current Visit: Yes Status: Acute Assessment and plan: s/p EGD GI will f/u on biopsy results Started on PPI BID + Carafate (5) Acute exacerbation of chronic obstructive airways disease Current Visit: No Status: Acute Assessment and plan: on Steroids cont Duoneb and O2 (6) Anemia Current Visit: No Status: Chronic Assessment and plan: s/p EGD - showed esophagitis and chronic Gastritis Started on PPI PO BID Carafate 1gm ACHS Cont monitor H/H Stopped Sq heparin Qualifiers: Anemia type: iron deficiency Iron deficiency anemia type: unspecified iron deficiency Qualified Code(s): D50.9 - Iron deficiency anemia, unspecified (7) Acute diastolic heart failure Current Visit: Yes Status: Acute Assessment and plan: Pt might have mild diastolic CHF exacerbation Reviewed 2D Echo showed normal LVEF 55-60%, Mild diastolic dysfunction Improving started on Lasix 40mg PO Daily Reviewed CXR -Severe emphysematous changes noticed..No vascular congestion noticed (8) CKD (chronic kidney disease) stage 3, GFR 30-59 ml/min Current Visit: No Status: Acute Assessment and plan: history of CKD continue to monitor creatinine renally dose all meds avoid nephrotoxins. (9) Physical deconditioning Current Visit: Yes Status: Acute Assessment and plan: PT / OT eval may need ECF placement Did peer to peer review with insurance provider - they denied for SNF / Short term rehab placement.. Stated as [facility] care is appropriate for pt. will talk to pt and family about further plan of care (10) DVT prophylaxis Current Visit: No Status: Acute Assessment and plan: on SCD's d/c Heparin - Subjective Interval history: Ms. Cardoza is a 86 year old female past medical history of COPD, advanced lung disease with home oxygen dependent at 2 lit, hypertension and back pain with history of compression fracture L3 L4 L5, Patient has been hospitalized over the past 5 weeks, for new compression fractures at the end of April, as well as pneumonia. Her daughter states that she has been home approximately a week from her last hospitalization and has been doing well up until the last 2 days where she has become increasingly short of breath.Pt was admitted here multi lobular pneumonia and started her on broad spec abx with Zosyn and supportive care. Pt happened to have hematemesis last night. She did go for EGD this morning. Post procedure she became more hypoxic and SOB. Pt was transferred to step down unit. Initially she was CPAP, she is breathing comfortably on oxy mask at 8lit. Denied any CP / Abd pain. Tolerating PO intake ok. No more N / V - Constitutional Vitals: Temp Pulse Resp BP Pulse Ox 99.2 F 96 26 111/56 91 06/03/17 12:48 06/03/17 12:48 06/03/17 15:33 06/03/17 12:48 06/03/17 15:33 General appearance: Present: cachectic, mild distress, A&O X 3, answers questions appropriately - Head Head exam: Present: atraumatic, normal inspection - Respiratory Respiratory exam: Present: decreased breath sounds, respiratory distress (mild) , wheezes (moderate). Absent: rales, rhonchi, stridor - Cardiovascular Cardiovascular exam: Present: RRR, +S1, +S2. Absent: systolic murmur - GI/Abdominal GI/Abdominal exam: Present: soft. Absent: rebound, rigid, tenderness - Extremities Exam Extremities exam: Absent: calf tenderness, pedal edema, tenderness - Back Exam Back exam: Absent: CVA tenderness (L), CVA tenderness (R) - Neurological Exam Neurological exam: Present: alert, oriented X3 - Psychiatric Psychiatric exam: Present: normal affect, normal mood Internal Medicine: Result - Labs CBC & Chem 7: 06/03/17 00:06 06/03/17 00:06 Labs: Short CBC 06/03/17 Range/Units 00:06 WBC 8.5 (4.3-11.1) K/mcL Hgb 8.7 L (11.5-15.4) g/dL Hct 28.1 L (35.3-44.9) % Plt Count 527 H (140-400) K/mcL Neutrophils # 7.6 (1.6-8.9) K/mcL BMP 06/03/17 00:06 Sodium 144 Potassium 4.0 Chloride 97 L Carbon Dioxide 37 H BUN 46 H Creatinine 1.70 H Glucose 106 H Calcium 8.9 Consult Discharge Plan - Plan Referrals: Kristy Snow MD [Primary Care Provider] - 06/13/17 11:15 am Brody Hurley MD [Partnered Physician] - 06/28/17 1:45 pm Juliann Reyez MD [Partnered Physician] - (SENT WEB REQUEST ON 06-03-17 @ [phone])
[2017-06-03] MEDS: MethylPREDNISolone 40 MG/ML VIAL IVP SCH (16:23)
[2017-06-03] MEDS: Doxycycline 100 MG in 0.9 % Sodium Chloride Mini Bag 100 ML IVPB SCH (16:23)
[2017-06-03] MEDS: Sucralfate 1 GM TABLET PO SCH ×2 (16:24→20:11)
[2017-06-03] MEDS: *HR* LORazepam 0.5 MG TABLET PO PRN (18:33)
[2017-06-03] MEDS: Melatonin 3 MG TABLET PO PRN (20:11)
[2017-06-04] MEDS: Ipratropium/Albuterol Neb 3 ML IH SCH ×6 (00:36→20:44)
[2017-06-04] MEDS: Acetylcysteine 10% 2 ML INHSOL IH SCH ×4 (04:02→20:44)
[2017-06-04] MEDS: MethylPREDNISolone 40 MG/ML VIAL IVP SCH ×2 (05:34→16:57)
[2017-06-04] MEDS: Doxycycline 100 MG in 0.9 % Sodium Chloride Mini Bag 100 ML IVPB SCH ×2 (05:34→16:57)
[2017-06-04 06:27] LABS: Basophils % 0.1 %; Hematocrit 27.1 % (35.3-44.9); Hemoglobin 8.2 g/dL (11.5-15.4); Immature Granulocytes % 0.6 % (0-4); Lymphocytes # 0.5 K/mcL (0.6-4.6); Lymphocytes % 2.7 %; Mean Corpuscular HGB Conc 30.3 g/dL (31.6-35.5); Mean Corpuscular Hemoglobin 28.5 pg (28.0-33.3); Mean Corpuscular Volume 94.1 fL (83.0-100.0); Monocytes # 1.1 K/mcL (0.0-1.3); Monocytes % 6.4 %; Platelet Count 407 K/mcL (140-400); Red Blood Count 2.88 M/mcL (3.82-4.97); Red Cell Distribution Width 14.6 % (11.5-14.5); Segmented Neutrophils % 90.2 %
[2017-06-04 06:28] LABS: Neutrophils # 15.9 K/mcL (1.6-8.9)
[2017-06-04 06:46] LABS: Calcium 8.9 mg/dL (8.6-10.8); Potassium 3.9 mEq/L (3.5-4.5)
[2017-06-04] MEDS: Budesonide/Formoterol 160/4.5 MDI IH SCH ×2 (07:55→20:47)
[2017-06-04] MEDS: Gabapentin 100 MG CAPSULE PO SCH ×3 (08:20→20:48)
[2017-06-04] MEDS: Sucralfate 1 GM TABLET PO SCH ×4 (08:20→20:48)
[2017-06-04] MEDS: Furosemide 40 MG TABLET PO SCH (08:20)
[2017-06-04] MEDS: Sennosides/Docusate Sodium TABLET PO SCH ×2 (08:21→20:48)
[2017-06-04] MEDS: amLODIPine 5 MG TABLET PO SCH (08:22)
[2017-06-04] MEDS: Lactobacillus 1 EACH CAP.SPRINK PO SCH (08:22)
[2017-06-04] MEDS: Piperacillin/Tazobactam 3.375 GM in D5% in Water (Mini-Bag+) 100 ML IVPB SCH ×2 (10:21→23:09)
--- NOTE | 2017-06-04 10:26 | Internal Med Progress Note ---
Date of Encounter: 06/04/17 Time of Encounter: 09:30 - Assessment and plan (1) Acute and chronic respiratory failure with hypoxia Current Visit: No Status: Acute Assessment and plan: COPD exacerbation/PNA Slightly worsened due to EGD procedure on 06/03/17 Reviewed CXR - Improving infiltrates, vascular congestion + Her WBC also went up today Her sputum cx growing Pseudomonas so added Zosyn to Doxy Cont close monitoring use BiPAP PRN during day time and continuous at QHS Cont IV Steroids MARYANN Duoneb (2) Pneumonia Current Visit: No Status: Acute Assessment and plan: Mostly bacterial also concerned for aspirational / chemical pneumonitis Improving slowly Added Zosyn since her sputum growing pseudomonas Duoneb PPI Cont O2.. try to wean her off the O2 to baseline Qualifiers: Pneumonia type: due to unspecified organism Laterality: right Lung location: unspecified part of lung Qualified Code(s): J18.9 - Pneumonia, unspecified organism (3) Sepsis Current Visit: No Status: Acute Assessment and plan: Due to pneumonia WBC went up again changed abx Qualifiers: Sepsis type: sepsis due to unspecified organism Qualified Code(s): A41.9 - Sepsis, unspecified organism (4) Esophagitis, acute Current Visit: Yes Status: Acute Assessment and plan: s/p EGD GI will f/u on biopsy results Started on PPI BID + Carafate (5) Acute exacerbation of chronic obstructive airways disease Current Visit: No Status: Acute Assessment and plan: on Steroids cont Duoneb and O2 (6) Anemia Current Visit: No Status: Chronic Assessment and plan: s/p EGD - showed esophagitis and chronic Gastritis Started on PPI PO BID Carafate 1gm ACHS Cont monitor H/H Stopped Sq heparin Qualifiers: Anemia type: iron deficiency Iron deficiency anemia type: unspecified iron deficiency Qualified Code(s): D50.9 - Iron deficiency anemia, unspecified (7) Acute diastolic heart failure Current Visit: Yes Status: Acute Assessment and plan: Pt might have mild diastolic CHF exacerbation Reviewed 2D Echo showed normal LVEF 55-60%, Mild diastolic dysfunction Improving Pt was already given PO Lasix this morning.. will re assess her later, if she needs will give an extra lasix tonight (8) CKD (chronic kidney disease) stage 3, GFR 30-59 ml/min Current Visit: No Status: Acute Assessment and plan: history of CKD continue to monitor creatinine renally dose all meds avoid nephrotoxins. (9) Physical deconditioning Current Visit: Yes Status: Acute Assessment and plan: PT / OT eval may need ECF placement Did peer to peer review with insurance provider - they denied for SNF / Short term rehab placement.. Stated as longterm care is appropriate for pt. will talk to pt and family about further plan of care (10) DVT prophylaxis Current Visit: No Status: Acute Assessment and plan: on SCD's d/c Heparin - Subjective Interval history: Ms. Cardoza is a 86 year old female past medical history of COPD, advanced lung disease with home oxygen dependent at 2 lit, hypertension and back pain with history of compression fracture L3 L4 L5, Patient has been hospitalized over the past 5 weeks, for new compression fractures at the end of April, as well as pneumonia. Her daughter states that she has been home approximately a week from her last hospitalization and has been doing well up until the last 2 days where she has become increasingly short of breath.Pt was admitted here multi lobular pneumonia and started her on broad spec abx with Zosyn and supportive care. Pt happened to have hematemesis on 06/02/2017 , she did go for EGD on 06/03/17. Post procedure she became more hypoxic and SOB. Pt was transferred to step down unit. She was on BiPAP all night, now 10 lit high flow o2. Denied any CP / Abd pain. Tolerating PO intake ok. No more N / V - Constitutional Vitals: Temp Pulse Resp BP Pulse Ox 98.0 F 95 22 138/73 90 06/04/17 07:31 06/04/17 07:31 06/04/17 07:53 06/04/17 07:53 06/04/17 07:53 General appearance: Present: cachectic, mild distress, A&O X 3, answers questions appropriately - Head Head exam: Present: atraumatic, normal inspection - Respiratory Respiratory exam: Present: decreased breath sounds, wheezes (moderate). Absent : rales, respiratory distress, rhonchi - Cardiovascular Cardiovascular exam: Present: RRR, +S1, +S2. Absent: systolic murmur - GI/Abdominal GI/Abdominal exam: Present: soft. Absent: rebound, rigid, tenderness - Extremities Exam Extremities exam: Absent: calf tenderness, pedal edema, tenderness - Back Exam Back exam: Absent: CVA tenderness (L), CVA tenderness (R) - Neurological Exam Neurological exam: Present: alert, oriented X3 - Psychiatric Psychiatric exam: Present: anxious Internal Medicine: Result - Labs CBC & Chem 7: 06/04/17 06:14 06/04/17 06:14 Labs: Short CBC 06/04/17 Range/Units 06:14 WBC 17.6 H D (4.3-11.1) K/mcL Hgb 8.2 L (11.5-15.4) g/dL Hct 27.1 L (35.3-44.9) % Plt Count 407 H (140-400) K/mcL Neutrophils # 15.9 H (1.6-8.9) K/mcL BMP 06/04/17 06:14 Sodium 145 Potassium 3.9 Chloride 98 Carbon Dioxide 39 H BUN 44 H Creatinine 1.63 H Glucose 97 Calcium 8.9 - Impressions Impressions Chest X-Ray 06/03/17 16:11 IMPRESSION: Interval improvement in the right mid lung opacity. Otherwise, no significant interval change in the moderate to severe prominence of interstitial lung markings. No new focal consolidation, pneumothorax, or sizable pleural effusion. D/ / Amrit Grimaldo MD / Amrit Grimaldo MD Interpreting Provider: Amrit Grimaldo MD Consult Discharge Plan - Plan Referrals: Kristy Snow MD [Primary Care Provider] - 06/13/17 11:15 am Brody Hurley MD [Partnered Physician] - 06/28/17 1:45 pm Juliann Reyez MD [Partnered Physician] - (SENT WEB REQUEST ON 06-03-17 @ [id number])
[2017-06-04] MEDS: Melatonin 3 MG TABLET PO PRN (20:48)
[2017-06-05] MEDS: Ipratropium/Albuterol Neb 3 ML IH SCH ×6 (00:18→20:52)
[2017-06-05] MEDS: Acetylcysteine 10% 2 ML INHSOL IH SCH ×4 (03:42→20:52)
[2017-06-05] MEDS: Doxycycline 100 MG in 0.9 % Sodium Chloride Mini Bag 100 ML IVPB SCH ×2 (06:13→18:06)
[2017-06-05] MEDS: MethylPREDNISolone 40 MG/ML VIAL IVP SCH (06:13)
[2017-06-05] MEDS: Budesonide/Formoterol 160/4.5 MDI IH SCH ×2 (07:38→20:52)
[2017-06-05] MEDS: amLODIPine 5 MG TABLET PO SCH (08:08)
[2017-06-05] MEDS: Gabapentin 100 MG CAPSULE PO SCH ×3 (08:08→21:02)
[2017-06-05] MEDS: Sucralfate 1 GM TABLET PO SCH ×4 (08:08→21:02)
[2017-06-05] MEDS: Sennosides/Docusate Sodium TABLET PO SCH ×2 (08:08→20:41)
[2017-06-05] MEDS: Lactobacillus 1 EACH CAP.SPRINK PO SCH (08:08)
[2017-06-05 09:59] LABS: Hemoglobin 8.8 g/dL (11.5-15.4); Mean Corpuscular HGB Conc 30.3 g/dL (31.6-35.5); Mean Corpuscular Hemoglobin 28.9 pg (28.0-33.3); Mean Corpuscular Volume 95.1 fL (83.0-100.0); Mean Platelet Volume 10.8 fL (9.4-12.4); Platelet Count 401 K/mcL (140-400); Red Blood Count 3.05 M/mcL (3.82-4.97); Red Cell Distribution Width 14.6 % (11.5-14.5)
[2017-06-05] MEDS: Piperacillin/Tazobactam 3.375 GM in D5% in Water (Mini-Bag+) 100 ML IVPB SCH ×2 (10:05→21:02)
[2017-06-05] MEDS: Furosemide 40 MG TABLET PO SCH (10:05)
[2017-06-05 10:10] LABS: Magnesium 1.2 mg/dL (1.6-2.6); Potassium 4.1 mEq/L (3.5-4.5)
[2017-06-05 10:28] LABS: Neutrophils # 19.8 K/mcL (1.6-8.9); Poikilocytosis 1+ (Not Present); Stomatocytes 1+ (Not Present)
[2017-06-05 10:38] LABS: Lymphocytes # 0.2 K/mcL (0.6-4.6)
--- NOTE | 2017-06-05 13:16 | Internal Med Progress Note ---
Date of Encounter: 06/05/17 Time of Encounter: 09:30 - Assessment and plan (1) Acute and chronic respiratory failure with hypoxia Current Visit: No Status: Acute Assessment and plan: COPD exacerbation/PNA Improving again Currently on 4 lit O2 Reviewed CXR - Improving infiltrates, vascular congestion + Her WBC are still elevated - could be reactive and steroid induced slightly elevated Co2 on BMP.. But pt is alert, awake and o x3, clinically looking better today Her sputum cx growing Pseudomonas so cont Zosyn to Doxy Cont close monitoring use BiPAP PRN during day time and continuous at QHS Cont IV Steroids MARYANN Duoneb (2) Pneumonia Current Visit: No Status: Acute Assessment and plan: Mostly bacterial also concerned for aspirational / chemical pneumonitis Improving slowly on Zosyn + doxy cont duoneb PPI Cont O2.. try to wean her off the O2 to baseline Qualifiers: Pneumonia type: due to unspecified organism Laterality: right Lung location: unspecified part of lung Qualified Code(s): J18.9 - Pneumonia, unspecified organism (3) Sepsis Current Visit: No Status: Acute Assessment and plan: Due to pneumonia WBC went up again changed abx Qualifiers: Sepsis type: sepsis due to unspecified organism Qualified Code(s): A41.9 - Sepsis, unspecified organism (4) Esophagitis, acute Current Visit: Yes Status: Acute Assessment and plan: s/p EGD GI will f/u on biopsy results cont on PPI BID + Carafate (5) Acute exacerbation of chronic obstructive airways disease Current Visit: No Status: Acute Assessment and plan: started tapering Steroids cont Duoneb and O2 (6) Anemia Current Visit: No Status: Chronic Assessment and plan: s/p EGD - showed esophagitis and chronic Gastritis Started on PPI PO BID Carafate 1gm ACHS Cont monitor H/H Stopped Sq heparin Qualifiers: Anemia type: iron deficiency Iron deficiency anemia type: unspecified iron deficiency Qualified Code(s): D50.9 - Iron deficiency anemia, unspecified (7) Acute diastolic heart failure Current Visit: Yes Status: Acute Assessment and plan: Pt might have mild diastolic CHF exacerbation Reviewed 2D Echo showed normal LVEF 55-60%, Mild diastolic dysfunction Improving cont Po lasix daily (8) CKD (chronic kidney disease) stage 3, GFR 30-59 ml/min Current Visit: No Status: Acute Assessment and plan: history of CKD continue to monitor creatinine renally dose all meds avoid nephrotoxins. (9) Physical deconditioning Current Visit: Yes Status: Acute Assessment and plan: PT / OT eval may need ECF placement Did peer to peer review with insurance provider - they denied for SNF / Short term rehab placement.. Stated as intermediate care is appropriate for pt. will talk to pt and family about further plan of care (10) DVT prophylaxis Current Visit: No Status: Acute Assessment and plan: on SCD's d/c Heparin - Subjective Interval history: Ms. Cardoza is a 86 year old female past medical history of COPD, advanced lung disease with home oxygen dependent at 2 lit, hypertension and back pain with history of compression fracture L3 L4 L5, Patient has been hospitalized over the past 5 weeks, for new compression fractures at the end of April, as well as pneumonia. Her daughter states that she has been home approximately a week from her last hospitalization and has been doing well up until the last 2 days where she has become increasingly short of breath.Pt was admitted here multi lobular pneumonia and started her on broad spec abx with Zosyn and supportive care. Pt happened to have hematemesis on 06/02/2017 , she did go for EGD on 06/03/17. Post procedure she became more hypoxic and SOB. Pt was transferred to step down unit. Pt stated she is feeling better now. currnetly on 4 lit O2. Still has severe SOB and MILLER. Denied any CP / Abd pain. Tolerating PO intake ok. No more N / V - Constitutional Vitals: Temp Pulse Resp BP Pulse Ox 98.4 F 86 16 110/55 99 06/05/17 11:26 06/05/17 11:39 06/05/17 11:26 06/05/17 11:26 06/05/17 11:26 General appearance: Present: cachectic, mild distress, A&O X 3, answers questions appropriately - Head Head exam: Present: atraumatic, normal inspection - Neck Neck exam general surgery: Present: supple - Respiratory Respiratory exam: Present: decreased breath sounds, respiratory distress (mild) , wheezes (moderate). Absent: rales, rhonchi - Cardiovascular Cardiovascular exam: Present: RRR, +S1, +S2. Absent: diastolic murmur, gallop, rubs, systolic murmur - GI/Abdominal GI/Abdominal exam: Present: normal bowel sounds, soft. Absent: rebound, rigid, tenderness - Extremities Exam Extremities exam: Absent: calf tenderness, pedal edema, tenderness - Back Exam Back exam: Absent: CVA tenderness (L), CVA tenderness (R) - Neurological Exam Neurological exam: Present: alert, oriented X3 - Psychiatric Psychiatric exam: Present: anxious Internal Medicine: Result - Labs CBC & Chem 7: 06/05/17 09:33 06/05/17 09:33 Labs: Short CBC 06/05/17 Range/Units 09:33 WBC 19.8 H (4.3-11.1) K/mcL Hgb 8.8 L (11.5-15.4) g/dL Hct 29.0 L (35.3-44.9) % Plt Count 401 H (140-400) K/mcL Neutrophils # 19.8 H (1.6-8.9) K/mcL BMP 06/05/17 09:33 Sodium 143 Potassium 4.1 Chloride 95 L Carbon Dioxide 41 H* BUN 51 H Creatinine 1.79 H Glucose 139 H Calcium 9.0 Consult Discharge Plan - Plan Referrals: Kristy Snow MD [Primary Care Provider] - 06/13/17 11:15 am Brody Hurley MD [Partnered Physician] - 06/28/17 1:45 pm Juliann Reyez MD [Partnered Physician] - (SENT WEB REQUEST ON 06-03-17 @ [id number])
[2017-06-05] MEDS: Magnesium Sulfate 2 GM in D5% in Water 100 ML IVPB SCH ×2 (13:26→14:21)
[2017-06-05] MEDS: *HR* LORazepam 0.5 MG TABLET PO PRN (18:06)
[2017-06-06] MEDS: Ipratropium/Albuterol Neb 3 ML IH SCH ×7 (00:04→23:02)
[2017-06-06 03:49] LABS: Basophils % 0.1 %; Hemoglobin 8.6 g/dL (11.5-15.4); Immature Granulocytes % 0.7 % (0-4); Lymphocytes # 0.8 K/mcL (0.6-4.6); Lymphocytes % 4.2 %; Mean Corpuscular HGB Conc 30.7 g/dL (31.6-35.5); Mean Corpuscular Hemoglobin 28.8 pg (28.0-33.3); Mean Corpuscular Volume 93.6 fL (83.0-100.0); Mean Platelet Volume 10.9 fL (9.4-12.4); Monocytes # 1.9 K/mcL (0.0-1.3); Monocytes % 10.7 %; Neutrophils # 15.1 K/mcL (1.6-8.9); Platelet Count 381 K/mcL (140-400); Red Blood Count 2.99 M/mcL (3.82-4.97); Red Cell Distribution Width 14.8 % (11.5-14.5); Segmented Neutrophils % 84.3 %
[2017-06-06 04:02] LABS: Calcium 8.7 mg/dL (8.6-10.8); Magnesium 2.3 mg/dL (1.6-2.6); Potassium 3.7 mEq/L (3.5-4.5)
[2017-06-06] MEDS: Acetylcysteine 10% 2 ML INHSOL IH SCH ×4 (04:41→23:02)
[2017-06-06] MEDS: Doxycycline 100 MG in 0.9 % Sodium Chloride Mini Bag 100 ML IVPB SCH ×2 (06:39→16:33)
[2017-06-06] MEDS: Budesonide/Formoterol 160/4.5 MDI IH SCH ×2 (07:33→20:11)
[2017-06-06] MEDS ORDERED: MethylPREDNISolone 40 MG/ML VIAL IVP SCH (09:00)
[2017-06-06] MEDS: Furosemide 40 MG TABLET PO SCH (09:36)
[2017-06-06] MEDS: amLODIPine 5 MG TABLET PO SCH (09:36)
[2017-06-06] MEDS: Gabapentin 100 MG CAPSULE PO SCH ×3 (09:36→20:02)
[2017-06-06] MEDS: Sucralfate 1 GM TABLET PO SCH ×4 (09:36→20:02)
[2017-06-06] MEDS: Lactobacillus 1 EACH CAP.SPRINK PO SCH (09:36)
[2017-06-06] MEDS: Sennosides/Docusate Sodium TABLET PO SCH ×2 (09:36→19:49)
[2017-06-06] MEDS: Piperacillin/Tazobactam 3.375 GM in D5% in Water (Mini-Bag+) 100 ML IVPB SCH ×2 (09:37→21:49)
--- NOTE | 2017-06-06 13:06 | Internal Med Progress Note ---
Date of Encounter: 06/06/17 Time of Encounter: 08:00 - Assessment and plan (1) Acute and chronic respiratory failure with hypoxia Current Visit: No Status: Acute Assessment and plan: COPD exacerbation/PNA Improving Currently on 3 lit O2 Reviewed CXR - Improving infiltrates, vascular congestion + Her WBC started trending down - could be reactive and steroid induced Her sputum cx growing Pseudomonas so cont Zosyn to Doxy Cont close monitoring use BiPAP PRN during day time and continuous at QHS Will do over night bipap study..since she has been doing well with BiPAP Switched to Steroids changed to PRN Duoneb (2) Pneumonia Current Visit: No Status: Acute Assessment and plan: Mostly bacterial also concerned for aspirational / chemical pneumonitis Improving slowly on Zosyn + doxy cont duoneb PPI Cont O2.. try to wean her off the O2 to baseline Qualifiers: Pneumonia type: due to unspecified organism Laterality: right Lung location: unspecified part of lung Qualified Code(s): J18.9 - Pneumonia, unspecified organism (3) Sepsis Current Visit: No Status: Acute Assessment and plan: Due to pneumonia WBC started trending down changed abx Qualifiers: Sepsis type: sepsis due to unspecified organism Qualified Code(s): A41.9 - Sepsis, unspecified organism (4) Esophagitis, acute Current Visit: Yes Status: Acute Assessment and plan: s/p EGD GI will f/u on biopsy results cont on PPI BID + Carafate (5) Acute exacerbation of chronic obstructive airways disease Current Visit: No Status: Acute Assessment and plan: started tapering Steroids cont Duoneb and O2 (6) Anemia Current Visit: No Status: Chronic Assessment and plan: s/p EGD - showed esophagitis and chronic Gastritis Started on PPI PO BID Carafate 1gm ACHS Cont monitor H/H Stopped Sq heparin Qualifiers: Anemia type: iron deficiency Iron deficiency anemia type: unspecified iron deficiency Qualified Code(s): D50.9 - Iron deficiency anemia, unspecified (7) Acute diastolic heart failure Current Visit: Yes Status: Acute Assessment and plan: Pt might have mild diastolic CHF exacerbation Reviewed 2D Echo showed normal LVEF 55-60%, Mild diastolic dysfunction Improved cont Po lasix daily (8) CKD (chronic kidney disease) stage 3, GFR 30-59 ml/min Current Visit: No Status: Acute Assessment and plan: history of CKD continue to monitor creatinine renally dose all meds avoid nephrotoxins. (9) Physical deconditioning Current Visit: Yes Status: Acute Assessment and plan: PT / OT eval may need ECF placement Did peer to peer review with insurance provider - they denied for SNF / Short term rehab placement.. Stated as [facility] care is appropriate for pt. will talk to pt and family about further plan of care (10) DVT prophylaxis Current Visit: No Status: Acute Assessment and plan: on SCD's d/c Heparin - Subjective Interval history: Ms. Cardoza is a 86 year old female past medical history of COPD, advanced lung disease with home oxygen dependent at 2 lit, hypertension and back pain with history of compression fracture L3 L4 L5, Patient has been hospitalized over the past 5 weeks, for new compression fractures at the end of April, as well as pneumonia. Her daughter states that she has been home approximately a week from her last hospitalization and has been doing well up until the last 2 days where she has become increasingly short of breath.Pt was admitted here multi lobular pneumonia and started her on broad spec abx with Zosyn and supportive care. Pt happened to have hematemesis on 06/02/2017 , she did go for EGD on 06/03/17. Post procedure she became more hypoxic and SOB. Pt was transferred to step down unit. Pt stated she is feeling better now. currently on 3 lit O2. Still has some SOB and severe MILLER. Denied any CP / Abd pain. Tolerating PO intake well. No more N / V..feels like close to baseline - Constitutional Vitals: Temp Pulse Resp BP Pulse Ox 97.7 F 70 16 121/60 98 06/06/17 07:54 06/06/17 11:32 06/06/17 11:09 06/06/17 07:54 06/06/17 11:09 General appearance: Present: cachectic, A&O X 3, answers questions appropriately - Head Head exam: Present: atraumatic, normal inspection - Respiratory Respiratory exam: Present: decreased breath sounds, wheezes (mild). Absent: rales, respiratory distress, rhonchi - Cardiovascular Cardiovascular exam: Present: RRR, +S1, +S2. Absent: systolic murmur - GI/Abdominal GI/Abdominal exam: Present: normal bowel sounds, soft. Absent: rebound, rigid, tenderness - Extremities Exam Extremities exam: Absent: calf tenderness, pedal edema, tenderness - Back Exam Back exam: Absent: CVA tenderness (L), CVA tenderness (R) - Neurological Exam Neurological exam: Present: alert, oriented X3 - Psychiatric Psychiatric exam: Present: normal affect, normal mood Internal Medicine: Result - Labs CBC & Chem 7: 06/06/17 03:21 06/06/17 03:21 Labs: Short CBC 06/06/17 Range/Units 03:21 WBC 17.9 H (4.3-11.1) K/mcL Hgb 8.6 L (11.5-15.4) g/dL Hct 28.0 L (35.3-44.9) % Plt Count 381 (140-400) K/mcL Neutrophils # 15.1 H (1.6-8.9) K/mcL BMP 06/06/17 03:21 Sodium 141 Potassium 3.7 Chloride 93 L Carbon Dioxide 39 H BUN 52 H Creatinine 1.84 H Glucose 83 Calcium 8.7 - VTE Documentation of Mechanical Device: Intermittent pneumatic compression device Consult Discharge Plan - Plan Referrals: Kristy Snow MD [Primary Care Provider] - 06/13/17 11:15 am Brody Hurley MD [Partnered Physician] - 06/28/17 1:45 pm Juliann Reyez MD [Partnered Physician] - (SENT WEB REQUEST ON 06-03-17 @ [id number])
[2017-06-06] MEDS: *HR* LORazepam 0.5 MG TABLET PO PRN (20:02)
[2017-06-06] MEDS: Melatonin 3 MG TABLET PO PRN (21:49)
[2017-06-07 03:06] LABS: Basophils % 0.1 %; Hematocrit 28.3 % (35.3-44.9); Hemoglobin 8.7 g/dL (11.5-15.4); Immature Granulocytes % 0.6 % (0-4); Lymphocytes # 0.5 K/mcL (0.6-4.6); Lymphocytes % 2.7 %; Mean Corpuscular HGB Conc 30.7 g/dL (31.6-35.5); Mean Corpuscular Hemoglobin 28.5 pg (28.0-33.3); Mean Corpuscular Volume 92.8 fL (83.0-100.0); Monocytes # 1.2 K/mcL (0.0-1.3); Monocytes % 6.9 %; Platelet Count 354 K/mcL (140-400); Red Blood Count 3.05 M/mcL (3.82-4.97); Red Cell Distribution Width 14.9 % (11.5-14.5); Segmented Neutrophils % 89.7 %
[2017-06-07] MEDS: Acetylcysteine 10% 2 ML INHSOL IH SCH ×4 (04:13→20:26)
[2017-06-07] MEDS: Ipratropium/Albuterol Neb 3 ML IH SCH ×6 (04:13→23:46)
[2017-06-07] MEDS: Doxycycline 100 MG in 0.9 % Sodium Chloride Mini Bag 100 ML IVPB SCH (06:19)
[2017-06-07] MEDS: Budesonide/Formoterol 160/4.5 MDI IH SCH ×2 (07:28→20:27)
[2017-06-07] MEDS: Lactobacillus 1 EACH CAP.SPRINK PO SCH (08:02)
[2017-06-07] MEDS: Sucralfate 1 GM TABLET PO SCH ×4 (08:02→19:59)
[2017-06-07] MEDS: predniSONE 20 MG TABLET PO SCH (08:02)
[2017-06-07] MEDS: amLODIPine 5 MG TABLET PO SCH (08:03)
[2017-06-07] MEDS: Furosemide 40 MG TABLET PO SCH (08:03)
[2017-06-07] MEDS: Gabapentin 100 MG CAPSULE PO SCH ×3 (08:03→19:59)
[2017-06-07] MEDS: Sennosides/Docusate Sodium TABLET PO SCH (08:04)
[2017-06-07] MEDS ORDERED: Sennosides/Docusate Sodium TABLET PO PRN (09:38)
[2017-06-07] MEDS: Piperacillin/Tazobactam 3.375 GM in D5% in Water (Mini-Bag+) 100 ML IVPB SCH ×2 (11:24→19:59)
--- NOTE | 2017-06-07 15:37 | Internal Med Progress Note ---
Date of Encounter: 06/07/17 Time of Encounter: 15:35 - Assessment and plan (1) Acute and chronic respiratory failure with hypoxia Current Visit: No Status: Acute Assessment and plan: COPD exacerbation/PNA Improving Currently on 2 lit O2 Reviewed CXR - Improving infiltrates, vascular congestion + Her WBC started trending down - could be reactive and steroid induced Her sputum cx growing Pseudomonas so cont Zosyn..May switch to Omnicef when pt ready to d/c Cont close monitoring use BiPAP PRN during day time and continuous at QHS Will do over night bipap study..since she has been doing well with BiPAP Cont tapering Steroids changed to PRN Duoneb (2) Pneumonia Current Visit: No Status: Acute Assessment and plan: Mostly bacterial also concerned for aspirational / chemical pneumonitis Improving slowly on Zosyn cont duoneb PPI seems to be at baseline Qualifiers: Pneumonia type: due to unspecified organism Laterality: right Lung location: unspecified part of lung Qualified Code(s): J18.9 - Pneumonia, unspecified organism (3) Sepsis Current Visit: No Status: Acute Assessment and plan: Due to pneumonia WBC started trending down changed abx Qualifiers: Sepsis type: sepsis due to unspecified organism Qualified Code(s): A41.9 - Sepsis, unspecified organism (4) Esophagitis, acute Current Visit: Yes Status: Acute Assessment and plan: s/p EGD GI will f/u on biopsy results cont on PPI BID + Carafate (5) Acute exacerbation of chronic obstructive airways disease Current Visit: No Status: Acute Assessment and plan: started tapering Steroids cont Duoneb and O2 (6) Anemia Current Visit: No Status: Chronic Assessment and plan: s/p EGD - showed esophagitis and chronic Gastritis Started on PPI PO BID Carafate 1gm ACHS Cont monitor H/H Stopped Sq heparin Qualifiers: Anemia type: iron deficiency Iron deficiency anemia type: unspecified iron deficiency Qualified Code(s): D50.9 - Iron deficiency anemia, unspecified (7) Acute diastolic heart failure Current Visit: Yes Status: Acute Assessment and plan: Pt might have mild diastolic CHF exacerbation Reviewed 2D Echo showed normal LVEF 55-60%, Mild diastolic dysfunction Improved cont Po lasix daily (8) CKD (chronic kidney disease) stage 3, GFR 30-59 ml/min Current Visit: No Status: Acute Assessment and plan: history of CKD continue to monitor creatinine renally dose all meds avoid nephrotoxins. (9) Physical deconditioning Current Visit: Yes Status: Acute Assessment and plan: PT / OT eval may need ECF placement Did peer to peer review with insurance provider - they denied for SNF / Short term rehab placement.. Stated as [facility] care is appropriate for pt. Family appeal to Medicare..waiting on insurance approval (10) DVT prophylaxis Current Visit: No Status: Acute Assessment and plan: on SCD's d/c Heparin - Subjective Interval history: Ms. Cardoza is a 86 year old female past medical history of COPD, advanced lung disease with home oxygen dependent at 2 lit, hypertension and back pain with history of compression fracture L3 L4 L5, Patient has been hospitalized over the past 5 weeks, for new compression fractures at the end of April, as well as pneumonia. Her daughter states that she has been home approximately a week from her last hospitalization and has been doing well up until the last 2 days where she has become increasingly short of breath.Pt was admitted here multi lobular pneumonia and started her on broad spec abx with Zosyn and supportive care. Pt happened to have hematemesis on 06/02/2017 , she did go for EGD on 06/03/17. Post procedure she became more hypoxic and SOB. Pt was transferred to step down unit. Pt stated she is feeling better now. currently on 2 lit O2. Using BiPAP every night. Sleeping well with BiPAP. Still has some SOB and severe MILLER. Denied any CP / Abd pain. Tolerating PO intake well. No more N / V..feels like close to baseline - Constitutional Vitals: Temp Pulse Resp BP Pulse Ox 98.9 F 89 18 110/54 98 06/07/17 15:18 06/07/17 15:18 06/07/17 15:18 06/07/17 15:18 06/07/17 15:18 General appearance: Present: cachectic, A&O X 3, answers questions appropriately - Head Head exam: Present: atraumatic, normal inspection - Respiratory Respiratory exam: Present: decreased breath sounds, wheezes (moderate). Absent : rales, respiratory distress, rhonchi - Cardiovascular Cardiovascular exam: Present: RRR, +S1, +S2. Absent: systolic murmur - GI/Abdominal GI/Abdominal exam: Present: normal bowel sounds, soft. Absent: distended, pulsatile mass, rebound, rigid, tenderness - Extremities Exam Extremities exam: Absent: calf tenderness, pedal edema, tenderness - Back Exam Back exam: Absent: CVA tenderness (L), CVA tenderness (R) - Psychiatric Psychiatric exam: Present: depressed Internal Medicine: Result - Labs CBC & Chem 7: 06/07/17 02:52 06/06/17 03:21 Labs: Short CBC 06/07/17 Range/Units 02:52 WBC 17.9 H (4.3-11.1) K/mcL Hgb 8.7 L (11.5-15.4) g/dL Hct 28.3 L (35.3-44.9) % Plt Count 354 (140-400) K/mcL Neutrophils # 16.0 H (1.6-8.9) K/mcL - VTE Documentation of Mechanical Device: Intermittent pneumatic compression device Consult Discharge Plan - Plan Referrals: Kristy Snow MD [Primary Care Provider] - 06/13/17 11:15 am Brody Hurley MD [Partnered Physician] - 06/28/17 1:45 pm Juliann Reyez MD [Partnered Physician] - (SENT WEB REQUEST ON 06-03-17 @ [phone])
[2017-06-07] MEDS: *HR* LORazepam 0.5 MG TABLET PO PRN (18:42)
[2017-06-07] MEDS: Melatonin 3 MG TABLET PO PRN (19:59)
[2017-06-08] MEDS: Ipratropium/Albuterol Neb 3 ML IH SCH ×6 (03:50→23:56)
[2017-06-08] MEDS: Acetylcysteine 10% 2 ML INHSOL IH SCH ×4 (03:50→21:07)
[2017-06-08 05:22] LABS: Hematocrit 28.3 % (35.3-44.9); Hemoglobin 8.5 g/dL (11.5-15.4); Immature Granulocytes % 0.6 % (0-4); Lymphocytes # 0.7 K/mcL (0.6-4.6); Lymphocytes % 3.7 %; Mean Corpuscular Hemoglobin 28.1 pg (28.0-33.3); Mean Corpuscular Volume 93.4 fL (83.0-100.0); Mean Platelet Volume 11.7 fL (9.4-12.4); Monocytes # 1.3 K/mcL (0.0-1.3); Monocytes % 7.3 %; Neutrophils # 15.6 K/mcL (1.6-8.9); Platelet Count 354 K/mcL (140-400); Red Blood Count 3.03 M/mcL (3.82-4.97); Segmented Neutrophils % 88.4 %
[2017-06-08 05:34] LABS: Calcium 9.1 mg/dL (8.6-10.8); Magnesium 1.8 mg/dL (1.6-2.6); Potassium 3.3 mEq/L (3.5-4.5)
[2017-06-08] MEDS: Budesonide/Formoterol 160/4.5 MDI IH SCH ×2 (07:32→21:27)
[2017-06-08] MEDS: predniSONE 20 MG TABLET PO SCH (08:13)
[2017-06-08] MEDS: amLODIPine 5 MG TABLET PO SCH (08:13)
[2017-06-08] MEDS: Furosemide 40 MG TABLET PO SCH (08:14)
[2017-06-08] MEDS: Lactobacillus 1 EACH CAP.SPRINK PO SCH (08:14)
[2017-06-08] MEDS: Gabapentin 100 MG CAPSULE PO SCH ×3 (08:14→19:50)
[2017-06-08] MEDS: Sucralfate 1 GM TABLET PO SCH ×3 (08:20→15:22)
[2017-06-08] MEDS: Piperacillin/Tazobactam 3.375 GM in D5% in Water (Mini-Bag+) 100 ML IVPB SCH ×2 (10:53→23:53)
[2017-06-08 16:26] LABS: ABG Base Excess 15 mEq/L (-2 to 3); ABG HCO3 41 mEq/L (21-27); ABG Oxygen Saturation 82 % (95-98); ABG PCO2 61 mmHg (35-45); ABG PH 7.44 pH Units (7.32-7.45); ABG PO2 47 mmHg (85-104); ABG TCO2 43 mEq/L (20-26)
--- NOTE | 2017-06-08 16:32 | Internal Med Progress Note ---
Date of Encounter: 06/08/17 Time of Encounter: 08:30 - Assessment and plan (1) Acute and chronic respiratory failure with hypoxia Current Visit: No Status: Acute Assessment and plan: COPD exacerbation/PNA Improving Currently on 2 lit O2 Her WBC started trending down - could be reactive and steroid induced Her sputum cx growing Pseudomonas cont Zosyn # 11/14..May switch to Omnicef when pt ready to d/c Cont close monitoring use BiPAP PRN during day time and continuous at [facility] Her ABG from today showed inc PCo2..she may get benfit with BiPAP at [facility] will talk to RT to arrange for BiPAP at bed time Cont tapering Steroids changed to PRN Duoneb (2) Pneumonia Current Visit: No Status: Acute Assessment and plan: Mostly bacterial also concerned for aspirational / chemical pneumonitis Improving slowly on Zosyn cont duoneb PPI seems to be at baseline Qualifiers: Pneumonia type: due to unspecified organism Laterality: right Lung location: unspecified part of lung Qualified Code(s): J18.9 - Pneumonia, unspecified organism (3) Sepsis Current Visit: No Status: Acute Assessment and plan: Due to pneumonia WBC started trending down changed abx Qualifiers: Sepsis type: sepsis due to unspecified organism Qualified Code(s): A41.9 - Sepsis, unspecified organism (4) Esophagitis, acute Current Visit: Yes Status: Acute Assessment and plan: s/p EGD GI will f/u on biopsy results cont on PPI BID + Carafate (5) Acute exacerbation of chronic obstructive airways disease Current Visit: No Status: Acute Assessment and plan: started tapering Steroids cont Duoneb and O2 (6) Anemia Current Visit: No Status: Chronic Assessment and plan: s/p EGD - showed esophagitis and chronic Gastritis Started on PPI PO BID Carafate 1gm ACHS Cont monitor H/H Stopped Sq heparin Qualifiers: Anemia type: iron deficiency Iron deficiency anemia type: unspecified iron deficiency Qualified Code(s): D50.9 - Iron deficiency anemia, unspecified (7) Acute diastolic heart failure Current Visit: Yes Status: Acute Assessment and plan: Pt might have mild diastolic CHF exacerbation Reviewed 2D Echo showed normal LVEF 55-60%, Mild diastolic dysfunction Improved Will d/c Lasix sinc eher Cr went up little bit today (8) CKD (chronic kidney disease) stage 3, GFR 30-59 ml/min Current Visit: No Status: Acute Assessment and plan: history of CKD continue to monitor creatinine renally dose all meds avoid nephrotoxins. Will d/c Lasix since her Cr went up little bit today (9) Physical deconditioning Current Visit: Yes Status: Acute Assessment and plan: PT / OT eval may need ECF placement Did peer to peer review with insurance provider - they denied for SNF / Short term rehab placement.. 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 Family appeal to Medicare..waiting on insurance approval (10) DVT prophylaxis Current Visit: No Status: Acute Assessment and plan: on SCD's d/c Heparin - Subjective Interval history: Ms. Cardoza is a 86 year old female past medical history of COPD, advanced lung disease with home oxygen dependent at 2 lit, hypertension and back pain with history of compression fracture L3 L4 L5, Patient has been hospitalized over the past 5 weeks, for new compression fractures at the end of April, as well as pneumonia. Her daughter states that she has been home approximately a week from her last hospitalization and has been doing well up until the last 2 days where she has become increasingly short of breath.Pt was admitted here multi lobular pneumonia and started her on broad spec abx with Zosyn and supportive care. Pt happened to have hematemesis on 06/02/2017 , she did go for EGD on 06/03/17. Post procedure she became more hypoxic and SOB. Pt was transferred to step down unit. Pt stated she is feeling better now. currently on 2 lit O2. Using BiPAP every night. Sleeping well with BiPAP. Still has some SOB and severe MILLER. Denied any CP / Abd pain. Tolerating PO intake well. No more N / V..feels like close to baseline - Constitutional Vitals: Temp Pulse Resp BP Pulse Ox 98 F 89 16 128/62 95 06/08/17 15:35 06/08/17 15:35 06/08/17 15:35 06/08/17 15:35 06/08/17 15:35 General appearance: Present: cachectic, A&O X 3, answers questions appropriately - Head Head exam: Present: atraumatic, normal inspection - Respiratory Respiratory exam: Present: decreased breath sounds, wheezes (mild). Absent: rales, respiratory distress, rhonchi - Cardiovascular Cardiovascular exam: Present: RRR, +S1, +S2. Absent: systolic murmur - GI/Abdominal GI/Abdominal exam: Present: normal bowel sounds, soft. Absent: rebound, rigid, tenderness - Extremities Exam Extremities exam: Absent: calf tenderness, pedal edema, tenderness - Neurological Exam Neurological exam: Present: alert, oriented X3 - Psychiatric Psychiatric exam: Present: depressed Internal Medicine: Result - Labs CBC & Chem 7: 06/08/17 04:02 06/08/17 04:02 Labs: Short CBC 06/08/17 Range/Units 04:02 WBC 17.6 H (4.3-11.1) K/mcL Hgb 8.5 L (11.5-15.4) g/dL Hct 28.3 L (35.3-44.9) % Plt Count 354 (140-400) K/mcL Neutrophils # 15.6 H (1.6-8.9) K/mcL BMP 06/08/17 04:02 Sodium 144 Potassium 3.3 L Chloride 92 L Carbon Dioxide 43 H* BUN 65 H Creatinine 2.12 H Glucose 86 Calcium 9.1 - ABG Interpretation ABG results: ABG ABG pH 7.44 pH Units (7.32-7.45) 06/08/17 16:13 ABG pCO2 61 mmHg (35-45) H 06/08/17 16:13 ABG pO2 47 mmHg (85-104) L* 06/08/17 16:13 ABG O2 Saturation 82 % (95-98) L 06/08/17 16:13 - VTE Documentation of Mechanical Device: Intermittent pneumatic compression device Consult Discharge Plan - Plan Referrals: Kristy Snow MD [Primary Care Provider] - 06/13/17 11:15 am Brody Hurley MD [Partnered Physician] - 06/28/17 1:45 pm Juliann Reyez MD [Partnered Physician] - (SENT WEB REQUEST ON 06-03-17 @ [id number])
[2017-06-08 16:33] LABS: ABG Base Excess 13 mEq/L (-2 to 3); ABG HCO3 41 mEq/L (21-27); ABG Oxygen Saturation 83 % (95-98); ABG PCO2 62 mmHg (35-45); ABG PH 7.42 pH Units (7.32-7.45); ABG PO2 49 mmHg (85-104); ABG TCO2 43 mEq/L (20-26)
[2017-06-08] MEDS: Melatonin 3 MG TABLET PO PRN (19:50)
[2017-06-08] MEDS: *HR* LORazepam 0.5 MG TABLET PO PRN (19:51)
[2017-06-09] MEDS: Sucralfate 1 GM TABLET PO SCH ×5 (01:30→20:50)
[2017-06-09 03:48] LABS: Basophils % 0.1 %; Eosinophils % 0.2 %; Hematocrit 28.5 % (35.3-44.9); Hemoglobin 8.8 g/dL (11.5-15.4); Immature Granulocytes % 0.7 % (0-4); Lymphocytes # 0.6 K/mcL (0.6-4.6); Lymphocytes % 3.5 %; Mean Corpuscular HGB Conc 30.9 g/dL (31.6-35.5); Mean Corpuscular Hemoglobin 29.2 pg (28.0-33.3); Mean Corpuscular Volume 94.7 fL (83.0-100.0); Mean Platelet Volume 11.9 fL (9.4-12.4); Monocytes # 1.3 K/mcL (0.0-1.3); Monocytes % 7.3 %; Neutrophils # 16.2 K/mcL (1.6-8.9); Platelet Count 309 K/mcL (140-400); Red Blood Count 3.01 M/mcL (3.82-4.97); Red Cell Distribution Width 15.2 % (11.5-14.5); Segmented Neutrophils % 88.2 %
[2017-06-09 04:03] LABS: Potassium 3.3 mEq/L (3.5-4.5)
[2017-06-09] MEDS: Ipratropium/Albuterol Neb 3 ML IH SCH ×6 (04:25→23:40)
[2017-06-09] MEDS: Acetylcysteine 10% 2 ML INHSOL IH SCH ×4 (04:25→19:42)
[2017-06-09 04:40] LABS: ABG Base Excess 15 mEq/L (-2 to 3); ABG HCO3 43 mEq/L (21-27); ABG Oxygen Saturation 87 % (95-98); ABG PCO2 71 mmHg (35-45); ABG PH 7.39 pH Units (7.32-7.45); ABG PO2 57 mmHg (85-104); ABG TCO2 45 mEq/L (20-26)
[2017-06-09] MEDS: Budesonide/Formoterol 160/4.5 MDI IH SCH ×2 (07:24→19:43)
[2017-06-09] MEDS: Gabapentin 100 MG CAPSULE PO SCH ×3 (07:41→20:50)
[2017-06-09] MEDS: Furosemide 40 MG TABLET PO SCH (07:42)
[2017-06-09] MEDS: predniSONE 20 MG TABLET PO SCH (07:42)
[2017-06-09] MEDS: Lactobacillus 1 EACH CAP.SPRINK PO SCH (07:42)
[2017-06-09] MEDS: amLODIPine 5 MG TABLET PO SCH (07:42)
[2017-06-09] MEDS: Piperacillin/Tazobactam 3.375 GM in D5% in Water (Mini-Bag+) 100 ML IVPB SCH (11:31)
[2017-06-09] MEDS: Nystatin POWDER 30 GM BOTTLE TP SCH ×2 (11:35→21:02)
--- NOTE | 2017-06-09 11:47 | Internal Med Progress Note ---
Addendum entered and electronically signed by Farhad Canales DO 06/09/17 14: 22: BiPAP needed at night and PRN during day. CPAP trialed and failed. Original Note: <Farhad Canales - Last Filed: 06/09/17 11:45> Date of Encounter: 06/09/17 Time of Encounter: 11:45 - Assessment and plan (1) Acute and chronic respiratory failure with hypoxia Current Visit: No Status: Acute Assessment and plan: COPD exacerbation/PNA. Improving. Currently on 2L O2 WBC 18.3 currently - remaining between 17-19 Her sputum cx growing Pseudomonas Cont Zosyn # 12/14. May switch to Omnicef when pt ready to d/c Cont close monitoring BiPAP PRN during day time and continuous at [facility] Cont tapering Steroids Changed to PRN Duoneb ABG: ph 7.39, pCO2 71 (2) Pneumonia Current Visit: No Status: Acute Assessment and plan: Plan above Qualifiers: Pneumonia type: due to unspecified organism Laterality: right Lung location: lower lobe of lung Qualified Code(s): J18.1 - Lobar pneumonia, unspecified organism (3) Sepsis Current Visit: No Status: Acute Assessment and plan: Due to pneumonia - cont antibiotics Qualifiers: Sepsis type: sepsis due to unspecified organism Qualified Code(s): A41.9 - Sepsis, unspecified organism (4) Esophagitis, acute Current Visit: Yes Status: Acute Assessment and plan: s/p EGD - GI will f/u on biopsy results cont on PPI BID + Carafate (5) Acute exacerbation of chronic obstructive pulmonary disease (COPD) Current Visit: Yes Status: Acute Assessment and plan: Tapering steroids, continue duonebs, O2 (6) Anemia Current Visit: No Status: Chronic Assessment and plan: s/p EGD - showed esophagitis and chronic Gastritis PPI PO BID, Carafate 1gm ACHS Cont monitor H/H Stopped Sq heparin Qualifiers: Anemia type: iron deficiency Iron deficiency anemia type: unspecified iron deficiency Qualified Code(s): D50.9 - Iron deficiency anemia, unspecified (7) Acute diastolic heart failure Current Visit: Yes Status: Acute Assessment and plan: Reviewed 2D Echo showed normal LVEF 55-60%, Mild diastolic dysfunction Improved. No volume overload Off Lasix - Cr mild improvement (8) CKD (chronic kidney disease) stage 3, GFR 30-59 ml/min Current Visit: No Status: Acute Assessment and plan: History of CKD, continue to monitor creatinine Renally dose all meds, avoid nephrotoxins (9) Physical deconditioning Current Visit: Yes Status: Acute Assessment and plan: PT / OT eval - pending ECF placement Will continue to work with insurance to get approval (10) Chronic ulcer of sacral region Current Visit: Yes Status: Acute Assessment and plan: Reported to have been present since admission - continue local wound care Qualifiers: Qualified Code(s): L98.429 - Non-pressure chronic ulcer of back with unspecified severity (11) DVT prophylaxis Current Visit: No Status: Acute Assessment and plan: on SCD's. d/c Heparin - Subjective Interval history: Pt doing well with no specific complaints. Still some dyspnea. Using BiPaP at night. Tolerating PO intake. Resting comfortably in bed. Denies chest pain, N/V/ D/C, dysuria, or leg pain/edema. - Constitutional Vitals: Temp Pulse Resp BP Pulse Ox 98.5 F 82 14 118/59 96 06/09/17 10:11 06/09/17 10:11 06/09/17 11:03 06/09/17 10:11 06/09/17 11:03 General appearance: Present: cachectic, A&O X 3, answers questions appropriately - Head Head exam: Present: atraumatic, normocephalic - Eye Eye exam: Present: conjuntiva pink, sclera anicteric - ENT ENT exam: Present: mucous membranes moist - Neck Neck exam general surgery: Present: supple, trachea midline - Respiratory Respiratory exam: Present: decreased breath sounds, wheezes (expiratory). Absent: rales, rhonchi - Cardiovascular Cardiovascular exam: Present: RRR, +S1, +S2. Absent: diastolic murmur, systolic murmur - GI/Abdominal GI/Abdominal exam: Present: normal bowel sounds, soft, no peritoneal signs. Absent: distended, tenderness - Extremities Exam Extremities exam: Present: warm, radial pulses palpable and symmetrical. Absent : calf tenderness, pedal edema - Neurological Exam Neurological exam: Present: alert, oriented X3, no focal deficits. Absent: facial droop - Skin Skin exam: Present: dry Additional comments: Stable chronic stage 2 sacral ulcer present since admission Internal Medicine: Result - Labs CBC & Chem 7: 06/09/17 02:55 06/09/17 02:55 Labs: Short CBC 06/09/17 Range/Units 02:55 WBC 18.3 H (4.3-11.1) K/mcL Hgb 8.8 L (11.5-15.4) g/dL Hct 28.5 L (35.3-44.9) % Plt Count 309 (140-400) K/mcL Neutrophils # 16.2 H (1.6-8.9) K/mcL BMP 06/09/17 02:55 Sodium 145 Potassium 3.3 L Chloride 92 L Carbon Dioxide 41 H* BUN 61 H Creatinine 2.04 H Glucose 108 H Calcium 9.0 - ABG Interpretation ABG results: ABG ABG pH 7.39 pH Units (7.32-7.45) 06/09/17 04:37 ABG pCO2 71 mmHg (35-45) H* 06/09/17 04:37 ABG pO2 57 mmHg (85-104) L 06/09/17 04:37 ABG O2 Saturation 87 % (95-98) L 06/09/17 04:37 - VTE Documentation of Mechanical Device: Intermittent pneumatic compression device Consult Discharge Plan - Plan Referrals: Kristy Snow MD [Primary Care Provider] - 06/13/17 11:15 am Brody Hurley MD [Partnered Physician] - 06/28/17 1:45 pm Juliann Reyez MD [Partnered Physician] - (SENT WEB REQUEST ON 06-03-17 @ 1193) <Dion Kelly P - Last Filed: 06/09/17 18:05> Date of Encounter: 06/09/17 - Constitutional Vitals: Temp Pulse Resp BP Pulse Ox 98.3 F 79 14 116/61 95 06/09/17 14:53 06/09/17 14:53 06/09/17 16:00 06/09/17 14:53 06/09/17 16:00 Internal Medicine: Result - Labs CBC & Chem 7: 06/09/17 02:55 06/09/17 02:55 Labs: Short CBC 06/09/17 Range/Units 02:55 WBC 18.3 H (4.3-11.1) K/mcL Hgb 8.8 L (11.5-15.4) g/dL Hct 28.5 L (35.3-44.9) % Plt Count 309 (140-400) K/mcL Neutrophils # 16.2 H (1.6-8.9) K/mcL BMP 06/09/17 02:55 Sodium 145 Potassium 3.3 L Chloride 92 L Carbon Dioxide 41 H* BUN 61 H Creatinine 2.04 H Glucose 108 H Calcium 9.0 - ABG Interpretation ABG results: ABG ABG pH 7.39 pH Units (7.32-7.45) 06/09/17 04:37 ABG pCO2 71 mmHg (35-45) H* 06/09/17 04:37 ABG pO2 57 mmHg (85-104) L 06/09/17 04:37 ABG O2 Saturation 87 % (95-98) L 06/09/17 04:37 - Attending Attestation I examined this patient and my medical decision-making was reviewed with the Resident Physician. I agree with the documented findings, disposition and treatment plan as described except to the extent set forth below. 86/female Prolonged hospitalization. Awaiting for placement. Social work/ligation case management on board. Willing to do [id number] if needed.
[2017-06-09] MEDS: Fluconazole 40 MG/ML UDC PO SCH (14:20)
[2017-06-09] MEDS: Melatonin 3 MG TABLET PO PRN (20:50)
[2017-06-09] MEDS: *HR* LORazepam 0.5 MG TABLET PO PRN (20:50)
[2017-06-10] MEDS: Piperacillin/Tazobactam 3.375 GM in D5% in Water (Mini-Bag+) 100 ML IVPB SCH ×2 (00:33→09:39)
[2017-06-10] MEDS: Ipratropium/Albuterol Neb 3 ML IH SCH ×6 (04:13→23:58)
[2017-06-10] MEDS: Acetylcysteine 10% 2 ML INHSOL IH SCH ×4 (04:13→20:06)
[2017-06-10 04:23] LABS: Calcium 8.7 mg/dL (8.6-10.8)
[2017-06-10 04:45] LABS: Hematocrit 27.9 % (35.3-44.9); Hemoglobin 8.5 g/dL (11.5-15.4); Mean Corpuscular HGB Conc 30.5 g/dL (31.6-35.5); Mean Corpuscular Hemoglobin 28.5 pg (28.0-33.3); Mean Corpuscular Volume 93.6 fL (83.0-100.0); Mean Platelet Volume 12.2 fL (9.4-12.4); Platelet Count 280 K/mcL (140-400); Red Blood Count 2.98 M/mcL (3.82-4.97); Red Cell Distribution Width 15.3 % (11.5-14.5)
[2017-06-10] MEDS: Budesonide/Formoterol 160/4.5 MDI IH SCH ×2 (07:34→20:06)
[2017-06-10] MEDS: predniSONE 20 MG TABLET PO SCH ×2 (09:37→09:38)
[2017-06-10] MEDS: Lactobacillus 1 EACH CAP.SPRINK PO SCH (09:37)
[2017-06-10] MEDS: Gabapentin 100 MG CAPSULE PO SCH ×3 (09:38→21:22)
[2017-06-10] MEDS: amLODIPine 5 MG TABLET PO SCH (09:38)
[2017-06-10] MEDS: Sucralfate 1 GM TABLET PO SCH ×4 (09:38→21:23)
[2017-06-10] MEDS: Furosemide 40 MG TABLET PO SCH (09:38)
[2017-06-10] MEDS: Nystatin POWDER 30 GM BOTTLE TP SCH ×2 (09:39→21:00)
[2017-06-10] MEDS: Fluconazole 40 MG/ML UDC PO SCH (09:49)
--- NOTE | 2017-06-10 14:55 | Discharge Summary ---
<Farhad Canales R - Last Filed: 06/10/17 14:52> Date of Encounter: 06/10/17 Time of Encounter: 14:52 - Discharge Diagnosis (1) Acute and chronic respiratory failure with hypoxia Priority: Primary Status: Acute (2) Pneumonia Priority: Secondary Status: Acute Qualifiers: Pneumonia type: due to unspecified organism Laterality: right Lung location: lower lobe of lung Qualified Code(s): J18.1 - Lobar pneumonia, unspecified organism (3) Sepsis Priority: Secondary Status: Acute Qualifiers: Sepsis type: sepsis due to unspecified organism Qualified Code(s): A41.9 - Sepsis, unspecified organism (4) Esophagitis, acute Priority: Secondary Status: Acute (5) Acute exacerbation of chronic obstructive pulmonary disease (COPD) Priority: Secondary Status: Acute (6) Anemia Priority: Secondary Status: Chronic Qualifiers: Anemia type: iron deficiency Iron deficiency anemia type: unspecified iron deficiency Qualified Code(s): D50.9 - Iron deficiency anemia, unspecified (7) Acute diastolic heart failure Priority: Secondary Status: Acute (8) CKD (chronic kidney disease) stage 3, GFR 30-59 ml/min Priority: Secondary Status: Acute (9) Physical deconditioning Priority: Secondary Status: Acute (10) Chronic ulcer of sacral region Priority: Secondary Status: Acute Qualifiers: Qualified Code(s): L98.429 - Non-pressure chronic ulcer of back with unspecified severity (11) DVT prophylaxis Priority: Secondary Status: Acute - Discharge Medications Prescriptions: Albuterol Sulfate [Albuterol Inhaler] 1 puff IH Q6HR PRN #1 inhaler PRN Reason: Dyspnea Budesonide/Formoterol 160/4.5 [Symbicort 160/4.5] 2 puff IH BIDR #1 inhaler Ferrous Sulfate 325 mg PO DAILY@0800 #30 tablet Lactobacillus [Culturelle] 2 each PO DAILY #60 cap.sprink Nystatin POWDER [Nystop] 1 appl TP BID #1 bottle Omeprazole [PriLOSEC] 20 mg PO BIDAC #60 capsule.dr Sucralfate [Carafate] 1 gm PO QIDAC #30 tablet Home Medications: Aspirin 81 mg PO DAILY 07/21/15 [History] Gabapentin [Neurontin] 100 mg PO TID 07/21/15 [History] hydroCHLOROthiazide [Hydrochlorothiazide] 12.5 mg PO Q48H 03/22/16 [History] Albuterol Sulfate [Albuterol Inhaler] 1 puff IH Q6HR PRN #1 inhaler 06/10/17 [Rx ] Budesonide/Formoterol 160/4.5 [Symbicort 160/4.5] 2 puff IH BIDR #1 inhaler [Rx] Ferrous Sulfate 325 mg PO DAILY@0800 #30 tablet 06/10/17 [Rx] Lactobacillus [Culturelle] 2 each PO DAILY #60 cap.sprink 06/10/17 [Rx] Nystatin POWDER [Nystop] 1 appl TP BID #1 bottle 06/10/17 [Rx] Omeprazole [PriLOSEC] 20 mg PO BIDAC #60 capsule. 06/10/17 [Rx] Sucralfate [Carafate] 1 gm PO QIDAC #30 tablet 06/10/17 [Rx] Allergies/Adverse Reactions: 3 Allergy/AdvReac Type Severity Reaction Status Date / Time cephalexin [From Keflex] Allergy Flushing Verified 03/16/16 21:08 moxifloxacin Allergy Flushing Verified 03/16/16 21:08 Date of admission: 05/27/17 15:45 Primary care physician: Kristy Snow Consults: 05/27/17 12:03 Consult to Nutrition [CONS] Routine Comment: Consulting Provider: NUTRITION Reason for Dietary Consult: MST Score 05/27/17 13:05 Consult to Palliative Care [CONS] Routine Comment: Consulting Provider: Palliative Care Debbi Reason for Consult: end stage copd Time Notified: 13:06 Call Completed: Yes 05/27/17 13:36 Consult to Pulmonology [CONS] Routine Consulting Provider: [facility] [place] Reason for Consult: Pneumonia - may need bronch Time Notified: 13:37 Call Completed: Yes 05/27/17 16:11 Consult to Occupational Therapy [CONS] Routine Comment: Evaluate, develop and implement POC Reason for Consult: Debility Consult to Physical Therapy [CONS] Routine Comment: Evaluate, develop and implement POC Reason for Consult: Debility 05/30/17 10:28 Consult to Pulmonology [CONS] Routine Consulting Provider: [facility] [place] Reason for Consult: recurrent copd exacerbation secondary to pneumonia, findings on CT that may be infectious or malignant Call Completed: Yes 05/30/17 17:18 Consult to Feeder Loader [CONS] Routine Reason for SW Consult: placement plan 06/02/17 23:42 Consult to Gastroenterology [CONS] Routine Consulting Provider: Victoriano Werner Reason for Consult: Coffee ground emesis Call Completed: No 06/03/17 12:07 Consult to Respiratory Therapy [CONS] Stat Reason for Consult: Patient with persistent hypoxemia despite albuterol & duoneb treatments and attempts at C&DB. Patient needs CPAP please. Patient located in inpatient GI/PULM procedure room 2 Time Notified: 12:08 Call Completed: No Discharging clinician: Farhad Canales Anticipated date of discharge: 06/10/17 - Patient Status Disposition: Transfer SNF Condition: Fair Functional capacity at discharge: independent ambulation (with assistance and fall precautions) Overall status at discharge: patient is progressing back to baseline - Discharge Instructions Follow Up With: Kristy Snow MD [Primary Care Provider] - 06/13/17 11:15 am Brody Hurley MD [Partnered Physician] - 06/28/17 1:45 pm Juliann Reyez MD [Partnered Physician] - (SENT WEB REQUEST ON 06-03-17 @ 3415) Additional Instructions: Take medications and inhalers as prescribed Continue to use BiPAP at night and as needed during the day Continue physical therapy Follow-up with Dr. Reyez Follow-up with Dr. Snow - Diet and Activity Activity: as per physical therapy, wear oxygen at all times Diet: advance to your usual diet Interval History: Pt doing well with no complaints. Reports her breathing continues to improve with the use of BiPAP. She worked more with physical therapy and is showing improvement. Denies fevers, chest pain, cough, N/V/D/C, dysuria, or leg pain/ edema. Hospital course: Ms. Cardoza is a 86 year old female with PMH of COPD (on home oxygen) admitted for acute on chronic respiratory failure and multifocal pneumonia with pseudomonas on sputum culture. She received 14 days of antibiotics. BiPAP, steroids, and breathing treatments/inhalers improved the patients breathing. Chronic sacral ulcer present upon admission as well treated with local wound care. The patient was also anemic with + FOBT. Went for EGD after her respiratory status improved. EGD showed no acute bleed, chronic gastritis and increased PPI and added carafate. The patient would benefit from ECF and continued rehab. [facility] be [facility]. - Time Spent with Patient Total time spent providing and/or coordinating discharge services: Greater than 30 minutes - Constitutional Vitals: Temp Pulse Resp BP Pulse Ox 98.2 F 75 20 116/60 90 06/10/17 12:10 06/10/17 12:10 06/10/17 12:10 06/10/17 12:10 06/10/17 12:55 General appearance: Present: cachectic, A&O X 3, answers questions appropriately - Head Head exam: Present: atraumatic, normocephalic - Eye Eye exam: Present: conjuntiva pink, sclera anicteric - ENT ENT exam: Present: mucous membranes moist - Neck Neck exam general surgery: Present: supple, trachea midline - Respiratory Respiratory exam: Present: CTAB. Absent: accessory muscle use, rales, rhonchi, wheezes - Cardiovascular Cardiovascular exam: Present: RRR, +S1, +S2. Absent: diastolic murmur, systolic murmur - GI/Abdominal GI/Abdominal exam: Present: normal bowel sounds, soft, no peritoneal signs. Absent: distended, tenderness - Extremities Exam Extremities exam: Present: warm, radial pulses palpable and symmetrical. Absent : calf tenderness, cyanotic, pedal edema - Neurological Exam Neurological exam: Present: CN II-XII intact, oriented X3, no focal deficits. Absent: facial droop, speech deficit - Skin Skin exam: Present: dry, intact - VTE Documentation of Mechanical Device: Intermittent pneumatic compression device <Dion Kelly P - Last Filed: 06/10/17 17:31> Date of Encounter: 06/10/17 Date of admission: 05/27/17 15:45 Primary care physician: Kristy Snow Consults: 05/27/17 12:03 Consult to Nutrition [CONS] Routine Comment: Consulting Provider: NUTRITION Reason for Dietary Consult: MST Score 05/27/17 13:05 Consult to Palliative Care [CONS] Routine Comment: Consulting Provider: Palliative Care Debbi Reason for Consult: end stage copd Time Notified: 13:06 Call Completed: Yes 05/27/17 13:36 Consult to Pulmonology [CONS] Routine Consulting Provider: [facility] [place] Reason for Consult: Pneumonia - may need bronch Time Notified: 13:37 Call Completed: Yes 05/27/17 16:11 Consult to Occupational Therapy [CONS] Routine Comment: Evaluate, develop and implement POC Reason for Consult: Debility Consult to Physical Therapy [CONS] Routine Comment: Evaluate, develop and implement POC Reason for Consult: Debility 05/30/17 10:28 Consult to Pulmonology [CONS] Routine Consulting Provider: [facility] [place] Reason for Consult: recurrent copd exacerbation secondary to pneumonia, findings on CT that may be infectious or malignant Call Completed: Yes 05/30/17 17:18 Consult to Feeder Loader [CONS] Routine Reason for SW Consult: placement plan 06/02/17 23:42 Consult to Gastroenterology [CONS] Routine Consulting Provider: [facility] [place] Reason for Consult: Coffee ground emesis Call Completed: No 06/03/17 12:07 Consult to Respiratory Therapy [CONS] Stat Reason for Consult: Patient with persistent hypoxemia despite albuterol & duoneb treatments and attempts at C&DB. Patient needs CPAP please. Patient located in inpatient GI/PULM procedure room 2 Time Notified: 12:08 Call Completed: No Hospital course: Ms. Cardoza is a 86 year old female - Time Spent with Patient Total time spent providing and/or coordinating discharge services: - Constitutional Vitals: Temp Pulse Resp BP Pulse Ox 98.1 F 86 18 116/69 90 06/10/17 16:16 06/10/17 16:16 06/10/17 16:16 06/10/17 16:16 06/10/17 16:16 - Attending Attestation I examined this patient and my medical decision-making was reviewed with the Resident Physician. I agree with the documented findings, disposition and treatment plan as described except to the extent set forth below.
--- NOTE | 2017-06-10 15:35 | Physician Discharge Referral ---
<Farhad Canales R - Last Filed: 06/10/17 15:36> ExtendedCare Referral Info Transfer To: [facility] and Care Provider in Charge: Business Process Consultant Provider in Charge after Transfer: PCP Institutional Level of Care: Skilled - Diagnosis (1) Acute and chronic respiratory failure with hypoxia Priority: Primary Status: Acute (2) Pneumonia Priority: Secondary Status: Acute (3) Sepsis Priority: Secondary Status: Acute (4) Esophagitis, acute Priority: Secondary Status: Acute (5) Acute exacerbation of chronic obstructive pulmonary disease (COPD) Priority: Secondary Status: Acute (6) Anemia Priority: Secondary Status: Chronic (7) Acute diastolic heart failure Priority: Secondary Status: Acute (8) CKD (chronic kidney disease) stage 3, GFR 30-59 ml/min Priority: Secondary Status: Chronic (9) Physical deconditioning Priority: Secondary Status: Chronic (10) Chronic ulcer of sacral region Priority: Secondary Status: Chronic (11) DVT prophylaxis Priority: Secondary Status: Acute - Transfer Medications Prescriptions: Albuterol Sulfate [Albuterol Inhaler] 1 puff IH Q6HR PRN #1 inhaler PRN Reason: Dyspnea Budesonide/Formoterol 160/4.5 [Symbicort 160/4.5] 2 puff IH BIDR #1 inhaler Ferrous Sulfate 325 mg PO DAILY@0800 #30 tablet Lactobacillus [Culturelle] 2 each PO DAILY #60 cap.sprink Nystatin POWDER [Nystop] 1 appl TP BID #1 bottle Omeprazole [PriLOSEC] 20 mg PO BIDAC #60 capsule. Sucralfate [Carafate] 1 gm PO QIDAC #30 tablet Home Medications: Aspirin 81 mg PO DAILY 07/21/15 [History] Gabapentin [Neurontin] 100 mg PO TID 07/21/15 [History] hydroCHLOROthiazide [Hydrochlorothiazide] 12.5 mg PO Q48H 03/22/16 [History] Albuterol Sulfate [Albuterol Inhaler] 1 puff IH Q6HR PRN #1 inhaler 06/10/17 [Rx ] Budesonide/Formoterol 160/4.5 [Symbicort 160/4.5] 2 puff IH BIDR #1 inhaler [Rx] Ferrous Sulfate 325 mg PO DAILY@0800 #30 tablet 06/10/17 [Rx] Lactobacillus [Culturelle] 2 each PO DAILY #60 cap.sprink 06/10/17 [Rx] Nystatin POWDER [Nystop] 1 appl TP BID #1 bottle 06/10/17 [Rx] Omeprazole [PriLOSEC] 20 mg PO BIDAC #60 capsule. 06/10/17 [Rx] Sucralfate [Carafate] 1 gm PO QIDAC #30 tablet 06/10/17 [Rx] Allergies/Adverse Reactions: 3 Allergy/AdvReac Type Severity Reaction Status Date / Time cephalexin [From Keflex] Allergy Flushing Verified 03/16/16 21:08 moxifloxacin Allergy Flushing Verified 03/16/16 21:08 - Respiratory Orders Oxygen / L per min (2-3L O2 nasal canula. BPAP at night and PRN) Smoking Cessation: Smoking cessation has been advised. For more information, call the [employer] Quit Line at [phone]-PYJQ-NOW. - Advance Directives Code Status: Full Code - Mobility Orders Chair, Ambulate (as per PT) - Rehabiliation Orders Rehab Orders: Evaluation for Physical Therapy, Evaluation for Occupational Therapy CERTIFICATION: I certify that the transfer of the above named patient to an Extended Care Facility is necessary for the continuing treatment of the diagnosis listed. The above information is true and accurate reflection of patient's current condition. Confidential - Redisclosure prohibited without a patient's written consent. <Dion Kelly P - Last Filed: 06/10/17 17:31> - Respiratory Orders Smoking Cessation: Smoking cessation has been advised. For more information, call the [employer] Quit Line at 9-345-HQUK-NOW. CERTIFICATION: I certify that the transfer of the above named patient to an Extended Care Facility is necessary for the continuing treatment of the diagnosis listed. The above information is true and accurate reflection of patient's current condition. Confidential - Redisclosure prohibited without a patient's written consent.
--- NOTE | 2017-06-10 16:02 | Physician Discharge Referral ---
<Farhad Canales - Last Filed: 06/10/17 16:00> Home Health/Hosp Referral Info Transfer to: Home Health Provider in Charge Post Discharge: PCP - Diagnosis (1) Acute and chronic respiratory failure with hypoxia Priority: Primary Status: Acute (2) Pneumonia Priority: Secondary Status: Acute (3) Sepsis Priority: Secondary Status: Acute (4) Esophagitis, acute Priority: Secondary Status: Acute (5) Acute exacerbation of chronic obstructive pulmonary disease (COPD) Priority: Secondary Status: Acute (6) Anemia Priority: Secondary Status: Chronic (7) Acute diastolic heart failure Priority: Secondary Status: Acute (8) CKD (chronic kidney disease) stage 3, GFR 30-59 ml/min Priority: Secondary Status: Chronic (9) Physical deconditioning Priority: Secondary Status: Chronic (10) Chronic ulcer of sacral region Priority: Secondary Status: Chronic (11) DVT prophylaxis Priority: Secondary Status: Acute - Respiratory Orders Oxygen / L per min (2-3L O2. BiPAP at night and PRN during day.) Smoking Cessation: Smoking cessation has been advised. For more information, call the [employer] Quit Line at 0-744-DEFJ-NOW. - Diet/Nutrition Diet/Nutrition Orders: Mechanical Soft - Activity Activity Orders: Ambulate (as per PT) - Services Needed Following services are medically necessary services: Nursing, Home Health Aide, Physical Therapy, Occupational Therapy - Transfer Medications Prescriptions: Albuterol Sulfate [Albuterol Inhaler] 1 puff IH Q6HR PRN #1 inhaler PRN Reason: Dyspnea Budesonide/Formoterol 160/4.5 [Symbicort 160/4.5] 2 puff IH BIDR #1 inhaler Ferrous Sulfate 325 mg PO DAILY@0800 #30 tablet Lactobacillus [Culturelle] 2 each PO DAILY #60 cap.sprink Nystatin POWDER [Nystop] 1 appl TP BID #1 bottle Omeprazole [PriLOSEC] 20 mg PO BIDAC #60 capsule. Sucralfate [Carafate] 1 gm PO QIDAC #30 tablet Home Medications: Aspirin 81 mg PO DAILY 07/21/15 [History] Gabapentin [Neurontin] 100 mg PO TID 07/21/15 [History] hydroCHLOROthiazide [Hydrochlorothiazide] 12.5 mg PO Q48H 03/22/16 [History] Albuterol Sulfate [Albuterol Inhaler] 1 puff IH Q6HR PRN #1 inhaler 06/10/17 [Rx ] Budesonide/Formoterol 160/4.5 [Symbicort 160/4.5] 2 puff IH BIDR #1 inhaler [Rx] Ferrous Sulfate 325 mg PO DAILY@0800 #30 tablet 06/10/17 [Rx] Lactobacillus [Culturelle] 2 each PO DAILY #60 cap.sprink 06/10/17 [Rx] Nystatin POWDER [Nystop] 1 appl TP BID #1 bottle 06/10/17 [Rx] Omeprazole [PriLOSEC] 20 mg PO BIDAC #60 capsule.dr 06/10/17 [Rx] Sucralfate [Carafate] 1 gm PO QIDAC #30 tablet 06/10/17 [Rx] Allergies/Adverse Reactions: 3 Allergy/AdvReac Type Severity Reaction Status Date / Time cephalexin [From Keflex] Allergy Flushing Verified 03/16/16 21:08 moxifloxacin Allergy Flushing Verified 03/16/16 21:08 Certification: Further, I certify that my clinical findings support that this patient is homebound (i.e. absences from home require considerable and taxing effort and are for medical reasons or oriental orthodox services or infrequently or short duration when for other reasons) because: Homebound Reason: Leaving home requires considerable and taxing effort due to condition Attestation: My signature below is to certify that this patient is under my care and that I, or nurse practitioner, or a physician's nursing assistants teacher working with me, has a face-to -face encounter with this patient. <Dion Kelly P - Last Filed: 06/10/17 17:31> - Respiratory Orders Smoking Cessation: Smoking cessation has been advised. For more information, call the [place] [employer] Quit Line at 0-439-XTZO-NOW. Certification: Further, I certify that my clinical findings support that this patient is homebound (i.e. absences from home require considerable and taxing effort and are for medical reasons or oriental orthodox services or infrequently or short duration when for other reasons) because: Attestation: My signature below is to certify that this patient is under my care and that I, or nurse practitioner, or a physician's nursing assistants teacher working with me, has a face-to -face encounter with this patient.
[2017-06-10] MEDS: Melatonin 3 MG TABLET PO PRN (21:22)
[2017-06-10] MEDS: *HR* LORazepam 0.5 MG TABLET PO PRN (21:22)
[2017-06-11] MEDS: Acetylcysteine 10% 2 ML INHSOL IH SCH ×4 (04:19→19:56)
[2017-06-11] MEDS: Ipratropium/Albuterol Neb 3 ML IH SCH ×6 (04:19→23:18)
[2017-06-11] MEDS: Budesonide/Formoterol 160/4.5 MDI IH SCH ×2 (07:21→19:56)
[2017-06-11] MEDS: Sucralfate 1 GM TABLET PO SCH ×4 (09:02→23:10)
[2017-06-11] MEDS: Nystatin POWDER 30 GM BOTTLE TP SCH ×2 (09:02→20:24)
[2017-06-11] MEDS: amLODIPine 5 MG TABLET PO SCH (09:03)
[2017-06-11] MEDS: Lactobacillus 1 EACH CAP.SPRINK PO SCH (09:03)
[2017-06-11] MEDS: Gabapentin 100 MG CAPSULE PO SCH ×3 (09:03→20:14)
[2017-06-11] MEDS: Furosemide 40 MG TABLET PO SCH (09:03)
[2017-06-11] MEDS: predniSONE 20 MG TABLET PO SCH (09:03)
[2017-06-11] MEDS: Fluconazole 40 MG/ML UDC PO SCH (09:05)
[2017-06-11] MEDS: *HR* LORazepam 0.5 MG TABLET PO PRN ×2 (13:36→20:14)
--- NOTE | 2017-06-11 17:27 | Event Note ---
Date of Encounter: 06/11/17 Time of Encounter: 17:27 Patient was discharged yesterday. Patient is awaiting for placement. No active medical issues at this point.
[2017-06-11] MEDS: Melatonin 3 MG TABLET PO PRN (20:14)
[2017-06-12] MEDS: Ipratropium/Albuterol Neb 3 ML IH SCH ×6 (03:49→23:37)
[2017-06-12] MEDS: Acetylcysteine 10% 2 ML INHSOL IH SCH ×4 (03:50→20:16)
[2017-06-12] MEDS: Budesonide/Formoterol 160/4.5 MDI IH SCH ×2 (08:31→20:17)
[2017-06-12] MEDS: Sucralfate 1 GM TABLET PO SCH (08:45)
[2017-06-12] MEDS: Furosemide 40 MG TABLET PO SCH (08:45)
[2017-06-12] MEDS: Lactobacillus 1 EACH CAP.SPRINK PO SCH (08:45)
[2017-06-12] MEDS: amLODIPine 5 MG TABLET PO SCH (08:46)
[2017-06-12] MEDS: predniSONE 20 MG TABLET PO SCH (08:46)
[2017-06-12] MEDS: Gabapentin 100 MG CAPSULE PO SCH ×3 (08:46→21:46)
[2017-06-12] MEDS: Nystatin POWDER 30 GM BOTTLE TP SCH ×2 (08:47→21:47)
[2017-06-12] MEDS: Fluconazole 40 MG/ML UDC PO SCH (09:01)
--- NOTE | 2017-06-12 11:15 | Event Note ---
Date of Encounter: 06/12/17 Time of Encounter: 11:15 Patient is medically stable. Patient is discharged. Patient is awaiting for placement. alteration worker to work with the family regarding placement.
[2017-06-12] MEDS: *HR* LORazepam 0.5 MG TABLET PO PRN (21:46)
[2017-06-12] MEDS: Melatonin 3 MG TABLET PO PRN (21:46)
[2017-06-13] MEDS: Ipratropium/Albuterol Neb 3 ML IH SCH ×6 (03:28→22:26)
[2017-06-13] MEDS: Acetylcysteine 10% 2 ML INHSOL IH SCH ×4 (03:28→22:27)
[2017-06-13 04:25] LABS: Calcium 8.9 mg/dL (8.6-10.8); Potassium 3.5 mEq/L (3.5-4.5)
[2017-06-13] MEDS: Budesonide/Formoterol 160/4.5 MDI IH SCH ×2 (07:39→22:27)
[2017-06-13] MEDS: Lactobacillus 1 EACH CAP.SPRINK PO SCH (08:55)
[2017-06-13] MEDS: Gabapentin 100 MG CAPSULE PO SCH ×3 (08:55→20:22)
[2017-06-13] MEDS: predniSONE 20 MG TABLET PO SCH (08:55)
[2017-06-13] MEDS: Furosemide 40 MG TABLET PO SCH (08:55)
[2017-06-13] MEDS: amLODIPine 5 MG TABLET PO SCH (08:55)
[2017-06-13] MEDS: Nystatin POWDER 30 GM BOTTLE TP SCH ×2 (08:56→20:22)
[2017-06-13] MEDS: Fluconazole 40 MG/ML UDC PO SCH (08:56)
--- NOTE | 2017-06-13 10:58 | Event Note ---
<Farhad Canales R - Last Filed: 06/13/17 10:57> Date of Encounter: 06/13/17 Time of Encounter: 10:57 Patient resting comfortably in bed. Patient is medically stable and discharged. Patient is awaiting for placement. pressed or blown glass worker to work with the family regarding placement <Dion Kelly P - Last Filed: 06/13/17 17:39> Date of Encounter: 06/13/17 I examined this patient and my medical decision-making was reviewed with the Resident Physician. I agree with the documented findings, disposition and treatment plan as described except to the extent set forth below.
[2017-06-13] MEDS ORDERED: Furosemide 20 MG/2 ML VIAL IVP ONE (17:44)
[2017-06-13] MEDS ORDERED: Furosemide 20 MG TABLET PO ONE (18:29)
[2017-06-13] MEDS: *HR* LORazepam 0.5 MG TABLET PO PRN (18:59)
[2017-06-13] MEDS: Melatonin 3 MG TABLET PO PRN (20:22)
[2017-06-14] MEDS: Acetylcysteine 10% 2 ML INHSOL IH SCH ×4 (03:57→20:06)
[2017-06-14] MEDS: Ipratropium/Albuterol Neb 3 ML IH SCH ×5 (03:58→20:06)
[2017-06-14] MEDS: Budesonide/Formoterol 160/4.5 MDI IH SCH ×2 (07:35→20:07)
[2017-06-14] MEDS: Lactobacillus 1 EACH CAP.SPRINK PO SCH (09:32)
[2017-06-14] MEDS: Gabapentin 100 MG CAPSULE PO SCH ×3 (09:32→21:11)
[2017-06-14] MEDS: predniSONE 20 MG TABLET PO SCH (09:33)
[2017-06-14] MEDS: Furosemide 40 MG TABLET PO SCH (09:33)
[2017-06-14] MEDS: amLODIPine 5 MG TABLET PO SCH (09:33)
[2017-06-14] MEDS: Fluconazole 40 MG/ML UDC PO SCH (09:33)
[2017-06-14] MEDS: Nystatin POWDER 30 GM BOTTLE TP SCH ×2 (09:41→21:11)
--- NOTE | 2017-06-14 10:16 | Event Note ---
<Farhad Canales - Last Filed: 06/14/17 10:10> Date of Encounter: 06/14/17 Time of Encounter: 10:11 Patient resting comfortably in bed. Patient is medically stable and discharged. Patient is awaiting decision about going home housekeeper/custodian/laundry worker to work with the family regarding home care - current plan is for the patient to go home with home health <Esa Chiu - Last Filed: 06/14/17 17:43> Date of Encounter: 06/14/17 Please see progress note of this date.
[2017-06-14 12:45] LABS: Hematocrit 30.7 % (35.3-44.9); Hemoglobin 9.1 g/dL (11.5-15.4); Mean Corpuscular HGB Conc 29.6 g/dL (31.6-35.5); Mean Corpuscular Hemoglobin 28.4 pg (28.0-33.3); Mean Corpuscular Volume 95.9 fL (83.0-100.0); Mean Platelet Volume 10.6 fL (9.4-12.4); Platelet Count 215 K/mcL (140-400); Red Cell Distribution Width 14.6 % (11.5-14.5)
[2017-06-14 12:57] LABS: Albumin 2.4 g/dL (3.5-5.0); Albumin/Globulin Ratio 0.6 (1.1-2.2); Bilirubin,Total 0.3 mg/dL (0.2-1.2); Calcium 9.5 mg/dL (8.6-10.8); Globulin 3.9 g/dL (2.4-3.5); Magnesium 1.4 mg/dL (1.6-2.6); Potassium 3.2 mEq/L (3.5-4.5); Total Protein 6.3 g/dL (6.0-8.3)
--- NOTE | 2017-06-14 14:48 | Internal Med Progress Note ---
<Farhad Canales - Last Filed: 06/14/17 17:06> Date of Encounter: 06/14/17 Time of Encounter: 14:46 - Assessment and plan (1) Acute and chronic respiratory failure with hypoxia Current Visit: No Status: Acute Assessment and plan: COPD exacerbation/PNA - completed 14 days of antibiotics for Pseudomonas on steroid taper Was to be discharged, but acutely worsening breathing today with de-saturation to 70's% Pt was unable to be on anticoagulation due to recent GI bleed and anemia CXR is clear, improved compared to previous x-rays Plan: Continue BiPAP, breathing treatments, and taper of steroids Unable to get CTA due to kidney function Pt likely unable to get V/Q scan due to breathing difficulty - will obtain when resp status able Will get bilateral LE doppler - consider IVC filter if positive Anticoagulation is not a good option as the patient has recently had a GI bleed Consider palliative care consult tomorrow (2) Esophagitis, acute Current Visit: Yes Status: Acute Assessment and plan: s/p EGD - GI will f/u on biopsy results cont on PPI BID + Carafate (3) Acute exacerbation of chronic obstructive pulmonary disease (COPD) Current Visit: Yes Status: Acute Assessment and plan: Tapering steroids, continue duonebs, O2, BiPAP (4) Anemia Current Visit: No Status: Chronic Assessment and plan: s/p EGD - showed esophagitis and chronic Gastritis PPI PO BID, Carafate 1gm ACHS Cont monitor H/H Sq heparin stopped due to GI bleed Qualifiers: Anemia type: iron deficiency Iron deficiency anemia type: unspecified iron deficiency Qualified Code(s): D50.9 - Iron deficiency anemia, unspecified (5) CKD (chronic kidney disease) stage 3, GFR 30-59 ml/min Current Visit: No Status: Chronic Assessment and plan: History of CKD, continue to monitor creatinine Renally dose all meds, avoid nephrotoxins (6) Physical deconditioning Current Visit: Yes Status: Chronic Assessment and plan: PT / OT (7) Chronic ulcer of sacral region Current Visit: Yes Status: Chronic Assessment and plan: Reported to have been present since admission - continue local wound care Qualifiers: Non-pressure ulcer stage: unspecified non-pressure ulcer stage Qualified Code(s): L98.429 - Non-pressure chronic ulcer of back with unspecified severity (8) DVT prophylaxis Current Visit: No Status: Acute Assessment and plan: SCDs. Holding anticoagulation due to recent GI bleed and anemia - Subjective Interval history: Pt had decreasing O2 sat down to 70s. Reporting dyspnea. Discharge has been cancelled. Using BiPaP at night. Tolerating PO intake. Denies chest pain, N/V/D/ C, dysuria, or leg pain/edema. - Constitutional Vitals: Temp Pulse Resp BP Pulse Ox 98.4 F 86 14 120/67 87 06/14/17 10:42 06/14/17 10:42 06/14/17 11:09 06/14/17 10:42 06/14/17 11:09 General appearance: Present: cachectic, A&O X 3, answers questions appropriately - Head Head exam: Present: atraumatic, normocephalic - Eye Eye exam: Present: conjuntiva pink, sclera anicteric - Neck Neck exam general surgery: Present: supple, trachea midline. Absent: lymphadenopathy - Respiratory Respiratory exam: Present: decreased breath sounds. Absent: accessory muscle use, rales, rhonchi, wheezes - Cardiovascular Cardiovascular exam: Present: RRR, +S1, +S2. Absent: diastolic murmur, systolic murmur - GI/Abdominal GI/Abdominal exam: Present: normal bowel sounds, soft, no peritoneal signs. Absent: distended, tenderness - Extremities Exam Extremities exam: Present: warm, radial pulses palpable and symmetrical. Absent : calf tenderness, cyanotic, pedal edema - Neurological Exam Neurological exam: Present: CN II-XII intact, oriented X3, no focal deficits. Absent: facial droop, speech deficit - Skin Skin exam: Present: dry, intact Internal Medicine: Result - Labs CBC & Chem 7: 06/14/17 12:33 06/14/17 12:33 Labs: Short CBC 06/14/17 Range/Units 12:33 WBC 18.2 H (4.3-11.1) K/mcL Hgb 9.1 L (11.5-15.4) g/dL Hct 30.7 L (35.3-44.9) % Plt Count 215 (140-400) K/mcL BMP 06/14/17 12:33 Sodium 147 H Potassium 3.2 L Chloride 91 L Carbon Dioxide 44 H* BUN 65 H Creatinine 1.76 H Glucose 111 H Calcium 9.5 Liver Function 06/14/17 Range/Units 12:33 Total Bilirubin 0.3 (0.2-1.2) mg/dL AST 14 (5-34) Units/L ALT 12 (0-55) Units/L Alkaline Phosphatase 61 (38-126) Units/L Albumin 2.4 L (3.5-5.0) g/dL - ABG Interpretation ABG results: ABG ABG pH 7.39 pH Units (7.32-7.45) 06/09/17 04:37 ABG pCO2 71 mmHg (35-45) H* 06/09/17 04:37 ABG pO2 57 mmHg (85-104) L 06/09/17 04:37 ABG O2 Saturation 87 % (95-98) L 06/09/17 04:37 - Impressions Impressions Chest X-Ray 06/14/17 11:48 IMPRESSION: Interval improvement of right perihilar/ midlung opacity. Otherwise stable chest from 05/27/2017. D/ / Fariba Grimaldo MD / Fariba Grimaldo MD Interpreting Provider: Fariba Grimaldo MD - VTE Documentation of Mechanical Device: Intermittent pneumatic compression device Consult Discharge Plan - Plan Instructions: Iron Supplements (By mouth), Sucralfate (By mouth), Albuterol ( By breathing), Nystatin (On the skin), Omeprazole (By mouth), Budesonide (By breathing), Probiotic (By mouth), Chronic Kidney Disease (DC), Chronic Kidney Disease (GEN), Chronic Obstructive Pulmonary Disease (DC), Sepsis (DC), Anemia ( GEN), Pneumonia (DC) Additional Instructions: Take medications and inhalers as prescribed Continue to use BiPAP at night and as needed during the day Continue physical therapy Follow-up with Dr. Reyez Follow-up with Dr. Snow Referrals: Kristy Snow MD [Primary Care Provider] - 06/13/17 11:15 am Brody Hurley MD [Partnered Physician] - 06/28/17 1:45 pm Juliann Reyez MD [Partnered Physician] - (SENT WEB REQUEST ON 06-03-17 @ [id number]) Prescriptions: Albuterol Sulfate [Albuterol Inhaler] 1 puff IH Q6HR PRN #1 inhaler PRN Reason: Dyspnea Budesonide/Formoterol 160/4.5 [Symbicort 160/4.5] 2 puff IH BIDR #1 inhaler Ferrous Sulfate 325 mg PO DAILY@0800 #30 tablet Lactobacillus [Culturelle] 2 each PO DAILY #60 cap.sprink Nystatin POWDER [Nystop] 1 appl TP BID #1 bottle Omeprazole [PriLOSEC] 20 mg PO BIDAC #60 capsule. Sucralfate [Carafate] 1 gm PO QIDAC #30 tablet <Esa Chiu - Last Filed: 06/14/17 17:51> Date of Encounter: 06/14/17 - Assessment and plan (1) Acute and chronic respiratory failure with hypoxia Current Visit: No Status: Acute (2) Acute exacerbation of chronic obstructive airways disease Current Visit: No Status: Acute (3) Esophagitis, acute Current Visit: Yes Status: Acute (4) Anemia Current Visit: No Status: Chronic Qualifiers: Anemia type: 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 Qualified Code(s): D50.0 - Iron deficiency anemia secondary to blood loss (chronic) (5) CKD (chronic kidney disease) stage 3, GFR 30-59 ml/min Current Visit: No Status: Chronic - Constitutional Vitals: Temp Pulse Resp BP Pulse Ox 97.8 F 84 18 106/54 100 06/14/17 15:13 06/14/17 15:13 06/14/17 15:43 06/14/17 15:13 06/14/17 15:43 Internal Medicine: Result - Labs CBC & Chem 7: 06/14/17 12:33 06/14/17 12:33 Labs: Short CBC 06/14/17 Range/Units 12:33 WBC 18.2 H (4.3-11.1) K/mcL Hgb 9.1 L (11.5-15.4) g/dL Hct 30.7 L (35.3-44.9) % Plt Count 215 (140-400) K/mcL BMP 06/14/17 12:33 Sodium 147 H Potassium 3.2 L Chloride 91 L Carbon Dioxide 44 H* BUN 65 H Creatinine 1.76 H Glucose 111 H Calcium 9.5 Liver Function 06/14/17 Range/Units 12:33 Total Bilirubin 0.3 (0.2-1.2) mg/dL AST 14 (5-34) Units/L ALT 12 (0-55) Units/L Alkaline Phosphatase 61 (38-126) Units/L Albumin 2.4 L (3.5-5.0) g/dL - ABG Interpretation ABG results: ABG ABG pH 7.39 pH Units (7.32-7.45) 06/09/17 04:37 ABG pCO2 71 mmHg (35-45) H* 06/09/17 04:37 ABG pO2 57 mmHg (85-104) L 06/09/17 04:37 ABG O2 Saturation 87 % (95-98) L 06/09/17 04:37 - Impressions Impressions Chest X-Ray 06/14/17 11:48 IMPRESSION: Interval improvement of right perihilar/ midlung opacity. Otherwise stable chest from 05/27/2017. D/ / Fariba Grimaldo MD / Fariba Grimaldo MD Interpreting Provider: Fariba Grimaldo MD - Attending Attestation I examined this patient and my medical decision-making was reviewed with the Resident Physician on 06/14/17. I agree with the documented findings, disposition and treatment plan as described except to the extent set forth below. Ms. Cardoza is currently hospitalized for hypercarbic and hypoxic resp failure due to COPD. She was to be discharged home today but is much more hypoxic so discharge held. She denies chest pain or dyspnea. No fever or chills. No cough. Exam Alert. Comfortable in bed at this time. Mucus membranes dry Heart reg - not tachy Lungs diminished no wheeze Abd soft No edema or leg pain I/P 1. Hypoxic resp failure 2. COPD Further diagnoses and plan as above.
[2017-06-14] MEDS ORDERED: Furosemide 20 MG TABLET PO ONE (18:05)
[2017-06-14] MEDS: Magnesium Oxide 400 MG TABLET PO SCH (21:11)
[2017-06-14] MEDS: *HR* LORazepam 0.5 MG TABLET PO PRN (21:11)
[2017-06-14] MEDS: Melatonin 3 MG TABLET PO PRN (21:11)
[2017-06-15] MEDS: Ipratropium/Albuterol Neb 3 ML IH SCH ×7 (00:25→23:03)
[2017-06-15] MEDS: Acetylcysteine 10% 2 ML INHSOL IH SCH ×4 (04:40→23:00)
[2017-06-15 06:11] LABS: Hematocrit 28.2 % (35.3-44.9); Hemoglobin 8.3 g/dL (11.5-15.4); Immature Granulocytes % 0.3 % (0-4); Lymphocytes # 0.6 K/mcL (0.6-4.6); Lymphocytes % 4.1 %; Mean Corpuscular HGB Conc 29.4 g/dL (31.6-35.5); Mean Corpuscular Hemoglobin 28.3 pg (28.0-33.3); Mean Corpuscular Volume 96.2 fL (83.0-100.0); Mean Platelet Volume 10.6 fL (9.4-12.4); Monocytes # 0.9 K/mcL (0.0-1.3); Monocytes % 5.7 %; Platelet Count 194 K/mcL (140-400); Red Blood Count 2.93 M/mcL (3.82-4.97); Red Cell Distribution Width 14.6 % (11.5-14.5); Segmented Neutrophils % 89.9 %
[2017-06-15 06:30] LABS: Calcium 9.4 mg/dL (8.6-10.8); Potassium 3.8 mEq/L (3.5-4.5)
[2017-06-15 08:17] LABS: Magnesium 1.5 mg/dL (1.6-2.6)
[2017-06-15] MEDS: Budesonide/Formoterol 160/4.5 MDI IH SCH ×2 (09:12→19:28)
--- NOTE | 2017-06-15 10:32 | Internal Med Progress Note ---
<Farhad Canales Osmany - Last Filed: 06/15/17 10:30> Date of Encounter: 06/15/17 Time of Encounter: 10:30 - Assessment and plan (1) Acute and chronic respiratory failure with hypoxia Current Visit: No Status: Acute Assessment and plan: COPD exacerbation/PNA - completed 14 days of antibiotics for Pseudomonas on steroid taper Was to be discharged, but acutely worsening breathing on 06/14/17 with de- saturation to 70's% Pt was unable to be on anticoagulation due to recent GI bleed and anemia CXR is clear, improved compared to previous x-rays Breathing improved overnight, sats now in mid/upper 90's on oxymask - Pt breathes through mouth, so nasal canula is not a good option for her B/L LE doppler shows no DVT. Less concern for PE with clinical improvement on oxymask Plan: Continue BiPAP, breathing treatments, and taper of steroids Unable to get CTA due to kidney function and unable to get V/Q scan due to breathing difficulty - less concern for PE now Anticoagulation is not a good option as the patient has recently had a GI bleed Family meeting today to discuss discharge planning (2) Esophagitis, acute Current Visit: Yes Status: Acute Assessment and plan: s/p EGD - GI will f/u on biopsy results cont on PPI BID + Carafate (3) Acute exacerbation of chronic obstructive pulmonary disease (COPD) Current Visit: Yes Status: Acute Assessment and plan: Tapering steroids, continue duonebs, O2, BiPAP (4) Anemia Current Visit: No Status: Chronic Assessment and plan: s/p EGD - showed esophagitis and chronic Gastritis PPI PO BID, Carafate 1gm ACHS Cont monitor H/H Sq heparin stopped due to GI bleed Qualifiers: Anemia type: 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 Qualified Code(s): D50.0 - Iron deficiency anemia secondary to blood loss (chronic) (5) CKD (chronic kidney disease) stage 3, GFR 30-59 ml/min Current Visit: No Status: Chronic Assessment and plan: History of CKD, continue to monitor creatinine Renally dose all meds, avoid nephrotoxins (6) Physical deconditioning Current Visit: Yes Status: Chronic Assessment and plan: PT / OT (7) Chronic ulcer of sacral region Current Visit: Yes Status: Chronic Assessment and plan: Reported to have been present since admission - continue local wound care Qualifiers: Non-pressure ulcer stage: unspecified non-pressure ulcer stage Qualified Code(s): L98.429 - Non-pressure chronic ulcer of back with unspecified severity (8) DVT prophylaxis Current Visit: No Status: Acute Assessment and plan: SCDs. Holding anticoagulation due to recent GI bleed and anemia - Subjective Interval history: Pt had decreasing O2 sat down to 70s yesterday, but back to normal today on oxymask. Denies dyspnea or cough. Using BiPaP at night. Tolerating PO intake. Denies chest pain, N/V/D/C, dysuria, or leg pain/edema. - Constitutional Vitals: Temp Pulse Resp BP Pulse Ox 98.5 F 87 14 112/54 94 06/15/17 06:28 06/15/17 06:28 06/15/17 06:28 06/15/17 06:28 06/15/17 06:28 General appearance: Present: cachectic, A&O X 3, no acute distress, answers questions appropriately - Head Head exam: Present: atraumatic, normocephalic - Eye Eye exam: Present: conjuntiva pink, sclera anicteric - Neck Neck exam general surgery: Present: supple, trachea midline. Absent: lymphadenopathy - Respiratory Respiratory exam: Present: decreased breath sounds. Absent: accessory muscle use, rales, rhonchi, wheezes - Cardiovascular Cardiovascular exam: Present: RRR, +S1, +S2. Absent: diastolic murmur, systolic murmur - GI/Abdominal GI/Abdominal exam: Present: normal bowel sounds, soft, no peritoneal signs. Absent: distended, tenderness - Extremities Exam Extremities exam: Present: warm, radial pulses palpable and symmetrical. Absent : calf tenderness, cyanotic, pedal edema - Neurological Exam Neurological exam: Present: CN II-XII intact, oriented X3, no focal deficits. Absent: facial droop, speech deficit Internal Medicine: Result - Labs CBC & Chem 7: 06/15/17 05:56 06/15/17 05:56 Labs: Short CBC 06/14/17 06/15/17 Range/Units 12:33 05:56 WBC 18.2 H 15.5 H (4.3-11.1) K/mcL Hgb 9.1 L 8.3 L (11.5-15.4) g/dL Hct 30.7 L 28.2 L (35.3-44.9) % Plt Count 215 194 (140-400) K/mcL Neutrophils # 14.0 H (1.6-8.9) K/mcL BMP 06/14/17 06/15/17 12:33 05:56 Sodium 147 H 146 H Potassium 3.2 L 3.8 Chloride 91 L 94 L Carbon Dioxide 44 H* 46 H* BUN 65 H 66 H Creatinine 1.76 H 1.65 H Glucose 111 H 94 Calcium 9.5 9.4 Liver Function 06/14/17 Range/Units 12:33 Total Bilirubin 0.3 (0.2-1.2) mg/dL AST 14 (5-34) Units/L ALT 12 (0-55) Units/L Alkaline Phosphatase 61 (38-126) Units/L Albumin 2.4 L (3.5-5.0) g/dL - ABG Interpretation ABG results: ABG ABG pH 7.39 pH Units (7.32-7.45) 06/09/17 04:37 ABG pCO2 71 mmHg (35-45) H* 06/09/17 04:37 ABG pO2 57 mmHg (85-104) L 06/09/17 04:37 ABG O2 Saturation 87 % (95-98) L 06/09/17 04:37 - Impressions Impressions Chest X-Ray 06/14/17 11:48 IMPRESSION: Interval improvement of right perihilar/ midlung opacity. Otherwise stable chest from 05/27/2017. D/ / Fariba Grimaldo MD / Fariba Grimaldo MD Interpreting Provider: Fariba Grimaldo MD - VTE Documentation of Mechanical Device: Intermittent pneumatic compression device Consult Discharge Plan - Plan Instructions: Iron Supplements (By mouth), Sucralfate (By mouth), Albuterol ( By breathing), Nystatin (On the skin), Omeprazole (By mouth), Budesonide (By breathing), Probiotic (By mouth), Chronic Kidney Disease (DC), Chronic Kidney Disease (GEN), Chronic Obstructive Pulmonary Disease (DC), Sepsis (DC), Anemia ( GEN), Pneumonia (DC) Additional Instructions: Take medications and inhalers as prescribed Continue to use BiPAP at night and as needed during the day Continue physical therapy Follow-up with Dr. Reyez Follow-up with Dr. Snow Referrals: Kristy Snow MD [Primary Care Provider] - 06/24/17 10:15 am Brody Hurley MD [Partnered Physician] - 06/28/17 1:45 pm Juliann Reyez MD [Partnered Physician] - (SENT WEB REQUEST ON 06-03-17 @ [id number]) Prescriptions: Albuterol Sulfate [Albuterol Inhaler] 1 puff IH Q6HR PRN #1 inhaler PRN Reason: Dyspnea Budesonide/Formoterol 160/4.5 [Symbicort 160/4.5] 2 puff IH BIDR #1 inhaler Ferrous Sulfate 325 mg PO DAILY@0800 #30 tablet Lactobacillus [Culturelle] 2 each PO DAILY #60 cap.sprink Nystatin POWDER [Nystop] 1 appl TP BID #1 bottle Omeprazole [PriLOSEC] 20 mg PO BIDAC #60 capsule. 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 Qualified Code(s): D50.0 - Iron deficiency anemia secondary to blood loss (chronic) (5) CKD (chronic kidney disease) stage 3, GFR 30-59 ml/min Current Visit: No Status: Chronic - Constitutional Vitals: Temp Pulse Resp BP Pulse Ox 97.8 F 87 14 123/61 92 06/15/17 15:29 06/15/17 15:29 06/15/17 15:29 06/15/17 15:29 06/15/17 15:29 Internal Medicine: Result - Labs CBC & Chem 7: 06/15/17 05:56 06/15/17 05:56 Labs: Short CBC 06/15/17 Range/Units 05:56 WBC 15.5 H (4.3-11.1) K/mcL Hgb 8.3 L (11.5-15.4) g/dL Hct 28.2 L (35.3-44.9) % Plt Count 194 (140-400) K/mcL Neutrophils # 14.0 H (1.6-8.9) K/mcL BMP 06/15/17 05:56 Sodium 146 H Potassium 3.8 Chloride 94 L Carbon Dioxide 46 H* BUN 66 H Creatinine 1.65 H Glucose 94 Calcium 9.4 - ABG Interpretation ABG results: ABG ABG pH 7.39 pH Units (7.32-7.45) 06/09/17 04:37 ABG pCO2 71 mmHg (35-45) H* 06/09/17 04:37 ABG pO2 57 mmHg (85-104) L 06/09/17 04:37 ABG O2 Saturation 87 % (95-98) L 06/09/17 04:37 - Attending Attestation I examined this patient and my medical decision-making was reviewed with the Resident Physician on 06/15/17. I agree with the documented findings, disposition and treatment plan as described except to the extent set forth below. Ms. Cardoza is currently hospitalized for hypoxic resp failure due to COPD and pneumonia. She remains moderate to high risk due to potential for worsening resp status. Ms Cardoza does better overall with oxymask. She breathes with her mouth not nose. She has no fever or chills. No cough. Denies dyspnea and pain. Not tachycardic. Venous duplex of LE negative. Exam Alert. Comfortable with face mask. Mucus membranes dry Heart reg - not tachy Lungs diminished no wheeze Abd soft. No edema I/P 1. Hypoxic 2. COPD Does better with oxymask. Further diagnoses and plan as above.
[2017-06-15] MEDS: Furosemide 40 MG TABLET PO SCH (10:38)
[2017-06-15] MEDS: Gabapentin 100 MG CAPSULE PO SCH ×3 (10:38→20:54)
[2017-06-15] MEDS: predniSONE 20 MG TABLET PO SCH (10:38)
[2017-06-15] MEDS: amLODIPine 5 MG TABLET PO SCH (10:38)
[2017-06-15] MEDS: Magnesium Oxide 400 MG TABLET PO SCH ×2 (10:38→20:54)
[2017-06-15] MEDS: Lactobacillus 1 EACH CAP.SPRINK PO SCH (10:39)
[2017-06-15] MEDS: Nystatin POWDER 30 GM BOTTLE TP SCH ×2 (10:39→20:55)
[2017-06-15] MEDS: Fluconazole 40 MG/ML UDC PO SCH (20:55)
[2017-06-15] MEDS: *HR* LORazepam 0.5 MG TABLET PO PRN (20:58)
[2017-06-15] MEDS: Melatonin 3 MG TABLET PO PRN (20:58)
[2017-06-16] MEDS: Ipratropium/Albuterol Neb 3 ML IH SCH ×4 (03:57→16:47)
[2017-06-16] MEDS: Acetylcysteine 10% 2 ML INHSOL IH SCH ×3 (03:57→16:47)
[2017-06-16 04:46] LABS: Hemoglobin 9.3 g/dL (11.5-15.4); Mean Corpuscular Hemoglobin 28.6 pg (28.0-33.3); Mean Corpuscular Volume 95.4 fL (83.0-100.0); Mean Platelet Volume 11.4 fL (9.4-12.4); Platelet Count 206 K/mcL (140-400); Red Blood Count 3.25 M/mcL (3.82-4.97); Red Cell Distribution Width 14.6 % (11.5-14.5)
[2017-06-16 04:54] LABS: Calcium 9.9 mg/dL (8.6-10.8)
[2017-06-16] MEDS: Budesonide/Formoterol 160/4.5 MDI IH SCH (07:48)
[2017-06-16] MEDS: amLODIPine 5 MG TABLET PO SCH (09:15)
[2017-06-16] MEDS: Gabapentin 100 MG CAPSULE PO SCH ×2 (09:15→17:20)
[2017-06-16] MEDS: Furosemide 40 MG TABLET PO SCH (09:15)
[2017-06-16] MEDS: Nystatin POWDER 30 GM BOTTLE TP SCH (09:16)
[2017-06-16] MEDS: Magnesium Oxide 400 MG TABLET PO SCH (09:16)
[2017-06-16] MEDS: Lactobacillus 1 EACH CAP.SPRINK PO SCH (09:16)
[2017-06-16] MEDS: predniSONE 20 MG TABLET PO SCH (09:16)
--- NOTE | 2017-06-16 14:11 | Event Note ---
Date of Encounter: 06/16/17 Time of Encounter: 10:00 Ms Cardoza is resting comfortably at this time. Family meeting last night and pt is now to go to [facility] as private pay. Exam Alert. Comfortable Mucus membranes dry Heart reg Diminished breath sounds No edema Dx: Acute on chronic hypoxic resp failure COPD exac Esophagitis Anemia - iron deficient due to chronic blood loss CKD 3 At this time she will be discharged to SNF.
[2017-06-16 15:19] VITALS: BP 122/63
== END 2017-06-16 19:44 | DRG 871 ==
LOC: 3NENU → SUATTDRO 15:45 → 2NNU 06-03 12:16 → 2NENU 06-07 19:02
PROVIDERS: ADMIT Internal Medicine; ATTEND Internal Medicine
PROC: ENDOEBX (2017-06-03 09:30)